=== PATIENT | female | born 1940 | race Caucasian/White ===

== ENCOUNTER → 2020-07-15 14:58 | Outpatient (CLI) | payer MEDICARE, SELFPAY ==
--- NOTE | ~2020-07-15 | XR_ITS ---
EXAMINATION: XR chest 2V EXAM DATE: 07/15/2020 15:27 INDICATION: Dyspnea on exertion . TECHNIQUE: Frontal and lateral projections of the chest obtained and reviewed. There is no prior cisco dy for comparison. FINDINGS: Moderate right-sided pleural effusion, small left pleural effusion, adjacent multisegmenta l right basilar atelectasis. There is cardiomegaly and pulmonary vascular congestion. Possible mild p ulmonary edema. Appearance consistent with CHF exacerbation. No pneumothorax. There is aortic arterio sclerosis. IMPRESSION: 1. Moderate right, small pleural effusions. 2. Congestive changes, suspicious for CHF exacerbation. Reviewed, dictated and finalized at location B. [facility]
== END ==
PROVIDERS: PCP Family Medicine Adolescent Medicine; Visit Provider Family Medicine Adolescent Medicine
DX: R06.09 Other forms of dyspnea (principal); J90 Pleural effusion, not elsewhere classified
CPT/HCPCS: 71046

== ENCOUNTER 2021-04-01 16:17 | Inpatient (IN) | payer MEDICARE, SELFPAY ==
[2021-04-01] VITALS (10 sets, daily range): BP systolic 154–188; BP diastolic 58–79; PULSE 21–66; RESP 16–20; TEMP 36–36.7; O2SAT 66–100
--- NOTE | ~2021-04-01 | XR_ITS ---
EXAMINATION: XR chest 2V DATE: 04/01/2021 22:11 INDICATION: Pulmonary edema TECHNIQUE: frontal and lateral views of the chest were obtained. COMPARISON: Chest radiograph dated 07/15/2020 FINDINGS: Subtle increased interstitial pattern in the lower lung zones and peribronchial cuffing consistent wi th mild pulmonary edema. Small right pleural effusion. No pneumothorax. Cardiomegaly. Moderate thorac olumbar spondylosis. IMPRESSION: 1. Mild pulmonary edema and small right pleural effusion. 2. Cardiomegaly. Reviewed, dictated and finalized at location A.
--- NOTE | ~2021-04-01 | NM_ITS ---
EXAMINATION: NM renal flow and function DATE: 04/03/2021 15:26 INDICATION: Acute kidney injury. TECHNIQUE: 7.2 mCi Tc-99m MAG3 was administered IV. The patient was scanned in the supine position. A posterior abdominal radionuclide angiogram was obtained. A subsequent time course of static images of the kidneys, ureters, and bladder was obtained. COMPARISON: Ultrasound kidneys 04/02/2021 FINDINGS: The posterior abdominal radionuclide angiogram and sequential static images show normal siz e, position, and morphology of the kidneys. Peak renal parenchymal uptake was >5 min in right kidney and >5 min in left kidney (normal peak 3-5 minutes). The relative early renal uptake was 53% on the right and 47% on the left (<40% is abnormal). No abnormalities of the ureters or bladder are seen. T1/2 for clearance of activity from the right kidney and proximal collecting system was >>20 minutes. T1/2 for clearance of activity from the left kidney and proximal collecting system was >>20 minutes. IMPRESSION: 1. Symmetric kidney function. 2. Delayed renal contrast uptake and delayed renal contrast clearance, consistent with decreased lanette al function. Reviewed, dictated and finalized at location A. IMPRESSION: 1. Symmetric kidney function. 2. Delayed renal contrast uptake and delayed renal contrast clearance, consist ent with decreased renal function.
--- NOTE | ~2021-04-01 | XR_ITS ---
EXAMINATION: XR abdomen/kub 1V INDICATION: Vomiting TECHNIQUE: Supine views of the abdomen were obtained on 2 radiographs. COMPARISON: None FINDINGS: The bowel gas pattern is normal. There are no dilated loops of bowel. Calcified atheroscler osis is noted. IMPRESSION: 1. No radiographic correlate for the patient's symptoms. Reviewed, dictated and finalized at location B.
--- NOTE | ~2021-04-01 | US_ITS ---
EXAMINATION: US biopsy renal DATE: 04/11/2021 14:53 INDICATION: Renal failure TECHNIQUE: The procedure including the risks, benefits, and alternatives was discussed with the patie nt. Risks discussed included bleeding and infection. The patient understood the risks and agreed to p roceed. A timeout was performed to verify the patient's name, date of , and procedure to be p erformed. The skin overlying the left kidney was prepped and draped in usual sterile fashion. Anest hetic was administered with 1% lidocaine subcutaneously. An 18 gauge core biopsy needle was then use d to obtain 7 core biopsy specimens under continuous sonographic guidance. The entry site was cleaned and dressed. There were no immediate complications. FINDINGS: Ultrasound images demonstrate the needle in the kidney. IMPRESSION: 1. Ultrasound-guided random left kidney core needle biopsy. Reviewed, dictated and finalized at location A.
--- NOTE | ~2021-04-01 | US_ITS ---
EXAMINATION: US renal BI DATE: 04/02/2021 08:44 INDICATION: Acute kidney injury. TECHNIQUE: Multiple ultrasound grayscale images of the kidneys were obtained. COMPARISON: None. FINDINGS: The right kidney measures 12.3 x 5.7 x 4.4 cm. The left kidney measures 12.0 x 5.1 x 5.6 cm. The kidn eys demonstrate normal parenchymal echogenicity. There is no hydronephrosis. The bladder is normal. IMPRESSION: 1. Normal kidneys. No hydronephrosis. Reviewed, dictated and finalized at location A.
--- NOTE | ~2021-04-01 | XR_ITS ---
EXAMINATION: XR chest 1V portable INDICATION: Shortness of breath TECHNIQUE: Portable AP chest at 0552 hours COMPARISON: 04/01/2021 FINDINGS: Cardiomegaly is noted. A mild diffuse interstitial pattern is present which has increased. There are small pleural effusions. No pneumothorax is identified. More focal airspace opacities are s een in the lung bases. IMPRESSION: 1. Cardiomegaly with mildly worsened pulmonary edema. 2. Small pleural effusions. 3. Bibasilar airspace opacities, consistent with atelectasis versus pneumonia. Reviewed, dictated and finalized at location A.
[2021-04-01 16:39] LABS: Basophils Percent Auto 0.2 % (0.2-1.2); Eosinophils Absolute Auto 0.1 K/mm3 (0-0.3); Eosinophils Percent Auto 0.8 % (0-4.4); Hematocrit 28.6 % (37.0-47.0); Hemoglobin 8.9 g/dL (12.0-15.0); Immature Granulocyte Absolute 0.02 K/mm3 (0.00-0.031); Immature Granulocyte Percent A 0.3 % (0-0.5); Lymphocytes Absolute Auto 1.37 K/mm3 (0.9-3.2); Lymphocytes Percent Auto 21.2 % (18.3-44.2); Mean Corpuscular HGB Conc 31.1 g/dl (32-36); Mean Corpuscular Volume 99.7 fl (80-100); Mean Platelet Volume 9.7 fl (7.4-10.4); Monocytes Absolute Auto 0.5 K/mm3 (0.1-0.6); Monocytes Percent Auto 7.9 % (2.6-8.5); Neutrophils Absolute Auto 4.5 K/mm3 (1.3-6.7); Neutrophils Percent Auto 69.6 % (45.5-73.1); Platelet Count Result 225 k/mm3 (150-375); Red Blood Count 2.87 M/mm3 (4.2-5.4); Red Cell Distribution Width 12.6 % (11.5-14.5); White Blood Count 6.5 K/mm3 (4.5-10.0)
[2021-04-01 16:48] LABS: Alanine Aminotransferase 16 U/L (4-35); Albumin Level 4.1 g/dL (3.5-5.1); Alkaline Phosphatase 70 U/L (38-126); Anion Gap 9 mmol/L (8-16); Aspartate Amino Transferase 23 U/L (14-36); Bilirubin,Total 0.5 mg/dL (0.2-1.3); Blood Urea Nitrogen 55 mg/dL (7-17); Carbon Dioxide 24 mmol/L (22-30); Chloride 108 mmol/L (98-107); Estimated CRCL calculation 13 ml/min; Estimated Glomerular Filt Rate 11; Glucose 125 mg/dL (65-110); Potassium 4.9 mmol/L (3.4-5.0); Sodium 141 mmol/L (137-145)
--- NOTE | 2021-04-01 20:50 | PC.NURSE ---
patient did not want to get in the bed and changed until she finds out what she is doing here. sent by dr carranza.
--- NOTE | 2021-04-01 22:00 | ED.RECABL ---
HPI - Recheck/Abnormal Lab/Rx General Chief Complaint: Recheck/Abnormal Lab/Rx Stated Complaint: NEEDS TESTING Time Seen by Provider: 04/01/21 21:01 Source: patient, family and RN notes reviewed Mode of arrival: wheelchair Limitations: no limitations History of Present Illness HPI narrative: This is an 80 year old female with history of hypertension, arthritis, CHF who presents for evaluation of abnormal labs. Patient was evaluated at her PCP office last week for a routine evaluation so she had outpatient labs performed. Patient was found to have increased Creatinine and decreased GFR so she was told to decrease Lasix from 80 mg to 40 mg yesterday. She was also told to stop taking meloxicam. Dr. Rico spoke to DR. Sotelo about patient and he recommended that patient be evaluated in ER today. Dr. Rico reports patient's GFR was 58 one year ago and it is 11 today. Patient denies any complaints. She denies chest pain, shortness of breathing, weakness, nausea, vomiting , difficulty urinating. She denies melena or blood loss. Related Data Home Medications Medication Instructions Recorded Confirmed aspirin [Aspirin Child] 81 mg PO DAILY 04/02/21 04/02/21 atenolol 50 mg PO DAILY 04/02/21 04/02/21 atorvastatin 40 mg PO DAILY 04/02/21 04/02/21 benazepril 40 mg PO HS 04/02/21 04/02/21 furosemide 40 mg PO DAILY 04/02/21 04/02/21 glimepiride 1 mg PO DAILY 04/02/21 04/02/21 latanoprost 1 drp EACH EYE HS 04/02/21 04/02/21 metformin 500 mg PO BID 04/02/21 04/02/21 timolol maleate 1 drp EACH EYE BID 04/02/21 04/02/21 Allergies Allergy/AdvReac Type Severity Reaction Status Date / Time ibuprofen Allergy Unknown Swelling Verified 04/02/21 04:26 of Lip/Tongue/Throat Review of Systems Review of Systems: All systems reviewed & are unremarkable except as noted in HPI and below PMFSH Past Medical History Medical History (Updated 04/02/21 @ 07:19 by Vera Isaac MD) Anemia CHF (congestive heart failure) Surgical History Surgical History (Updated 04/02/21 @ 07:23 by Vera Isaac MD) Hx of appendectomy Family History Family History (Updated 04/02/21 @ 04:17 by Seelne Connolly RN) Father Acute myocardial infarction Mother Ovarian cancer Social History Social History Smoking status: Never smoker Alcohol intake: never Substance use: never Substance use type: does not use Spiritual care concerns: No Exam Const: General: no acute distress, alert and ill appearing Orientation/consciousness: patient oriented x3 Eyes: EOM: EOMs intact bilaterally Resp: Effort & Inspection: normal respiratory effort and no retractions Auscultation: clear to auscultation bilaterally Cardio: Rhythm: regular rhythm Heart sounds: Murmur heart sound present GI: GI Palp: Yes Soft to palpation, No Tenderness to palpation present (GI) and No Guarding due to palpation present (GI) Auscultation: normal bowel sounds Neuro: General: patient oriented x3 and moves all extremities Extrem: Other: bilateral legs wrapped for edema Psych: Mental Status: mental status grossly normal Affect: normal affect Course Consultations Consultation #1: I spoke with Dr. Morales who states ok to continue diuretics. Order renal US. he will see tomorrow to given more recommendations. Date: 04/02/21 Time: 01:00 Vital Signs Vital signs: Vital Signs Temperature 96.8 F L 04/01/21 16:18 Pulse Rate 63 04/01/21 16:18 Respiratory Rate 16 04/01/21 16:18 Blood Pressure 181/68 H 04/01/21 16:18 Pulse Oximetry 99 04/01/21 16:18 Temperature 97.6 F 04/02/21 06:00 Pulse Rate 64 04/02/21 06:00 Respiratory Rate 20 04/02/21 06:00 Blood Pressure 184/68 H 04/02/21 06:00 Pulse Oximetry 97 04/02/21 06:00 MDM - Recheck/Abnormal Lab/Rx Medical Records Attestation: I reviewed the patient's medical records. Lab Data Attestation: I reviewed the patient's lab results. Result diagrams:
--- NOTE | 2021-04-01 22:01 | PC.NURSE ---
Called lab to add on additional labs
[2021-04-01 23:19] LABS: Folic Acid 7.4 ng/mL (2.76->20)
[2021-04-01 23:55] LABS: Iron 68 ug/dL (37-170)
[2021-04-02] VITALS (7 sets, daily range): BP systolic 133–184; BP diastolic 68–79; PULSE 54–64; RESP 16–20; TEMP 36.4–36.7; O2SAT 96–99; BMI 43.7
--- NOTE | 2021-04-02 | ECHO_ITS ---
Patient Info Name: Velma Goins Age: 80 years : 1940 Gender: Female Ht: 64 in Wt: 254 lbs BSA: 2.34 m2 HR: 78 bpm BP: 171 / 67 mmHg Heart Rhythm: Sinus Rhythm Technical Quality: Poor Exam Date: 04/02/2021 1:02 PM Exam Location: [facility] Pulmonary Exam Room: [facility] Patient Status: Inpatient Admit Date: 04/02/2021 Staff Ordering Physician: [facility] Clinical Nurse Specialist: Justa Walden RDCS Attending Provider: Roxann Redd DO Referring Physician: José NGUYEN; Exam Type: CA echo dop bubble study w con Study Info Indications - fluid overload Complete two-dimentional, color flow and Doppler transthoracic echocardiogram is performed with agitated saline and with contrast to opacify the left ventricle and to improve the delineation of the left ventricle endocardial borders. Contrast/Agitated Saline Contrast/Ag. Saline: Definity Amount: 1.00 ml Administered By: Taylor Melendrez RN Existing IV Access: Yes IV Access Condition: patent with no signs of infiltration Summary 1. Left ventricular chamber dimension is mildly enlarged. 2. Left ventricular systolic function is normal, estimated at 55-60%. 3. There is moderately increased left ventricular wall thickness. 4. The left ventricular diastolic function is grade II diastolic dysfunction. 5. Left atrial chamber dimension is moderately enlarged. 6. There is severe aortic valve stenosis with a peak velocity of 438 cm/s, mean gradient of 55 mmHg, and aortic valve area of 0.7 cm2. 7. There is mild tricuspid valve regurgitation. 8. Severe pulmonary hypertension, estimated pulmonary arterial systolic pressure is 69 mmHg. 9. There is a small pericardial effusion with fibrinous material within the pericardial space. 10. There is mild mitral valve regurgitation. 11. The mitral valve annulus is severely calcified. 12. Calcification of the submitral apparatus. Left Ventricle Left ventricular chamber dimension is mildly enlarged. Left ventricular systolic function is normal, estimated at 55-60%. There is moderately increased left ventricular wall thickness. The left ventricular diastolic function is grade II diastolic dysfunction. Right Ventricle Right ventricular chamber dimension is normal. Right ventricular systolic function is normal. Left Atria Left atrial chamber dimension is moderately enlarged. Right Atria Right atrial chamber dimension is mildly enlarged. Aortic Valve The aortic valve is not well visualized. There is severe aortic valve stenosis with a peak velocity of 438 cm/s, mean gradient of 55 mmHg, and aortic valve area of 0.7 cm2. There is mild aortic valve regurgitation. There is severe aortic valve calcification. Pulmonic Valve The pulmonic valve is not well visualized. Mitral Valve The mitral valve has thickened leaflets. There is mild mitral valve regurgitation. The mitral valve annulus is severely calcified. Calcification of the submitral apparatus. Tricuspid Valve The tricuspid valve leaflets are normal. There is mild tricuspid valve regurgitation. Severe pulmonary hypertension, estimated pulmonary arterial systolic pressure is 69 mmHg. Pericardium/Pleural The pericardium appears normal. There is a small pericardial effusion with fibrinous material within the pericardial space. Inferior Vena Cava Normal inferior vena cava with >50% collapse upon inspiration consistent with normal right atrial pressu
[2021-04-02 00:04] LABS: Percent Iron Saturation 29 % (20-50)
[2021-04-02 00:43] LABS: Add Urine Microscopic? YES; Appearance Urine Clear (Clear); Bacteria Urine 2+ /hpf; Bilirubin Urine Negative (Negative); Color Urine Yellow (Yellow); Glucose Urine UA Negative (Negative); Ketones Urine Negative (Negative); Leukocyte Esterase Ur 1+ LEU/UL (Negative); Nitrate Urine Negative (Negative); Protein Urine 1+ mg/dL (Negative); RBC Urine 0-2 /hpf (0-2); Specific Grav Ur 1.014 (1.001-1.035); Squamous Epithelial Cell Urine Rare /hpf (Few); Urobilinogen Urine Negative mg/dL (<2.0); WBC Urine 16-20 /hpf
--- NOTE | 2021-04-02 01:03 | PC.NURSE ---
Addendum entered by Minnie Hinojosa, Honey 04/02/21 01:03: Janie* UR K Janie Ur Creat at 0103 04/02/2021 - spoke to Daisy Original Note: called lab to add on BNP and Ur Prot Ur NA RAn
[2021-04-02 01:11] LABS: Blood Urine Negative (Negative)
[2021-04-02 01:25] LABS: NT Pro B Type Natriuretic Pept 7660 pg/mL (5-100)
--- NOTE | 2021-04-02 01:45 | PC.NURSE ---
Pt aware of need for another urine sample. Pt refusing straight catheter at this time. Urine cup at bedside.
--- NOTE | 2021-04-02 03:41 | PC.NURSE ---
daughter upset that she can not go upstairs to the room with the patient. daughter states her only concern is her mother. daughter states that her mother has bad eyesight and is worried about her pressing the wrong button and not getting anyone to help her and if she sits in her urine she will be really mad . daughter states she will be calling the doctor tomorrow and having her mother pulled out of this hospital . daughter apologized and stated that she was not taking it out on us, but her only concerns is her mother getting good care. I let the daughter know that I would relay the message to the floor nurse, and that they would make sure the patient was familiar with the room and buttons to press for help.
--- NOTE | 2021-04-02 03:58 | ADMGEN ---
This patient, Velma Goins, was admitted to 2 Medical Room 250-01. Patient/family oriented to hospital policies and general routines including ID bracelet, bed and alarms, visiting hours, pain management, procedures, bathroom and other care routines, personal items, smoking policy, room service/diet, and visiting hours. Information on how to activate the Rapid Response Team has been discussed. Patient/Family are encouraged to report perceived risks to care and to ask questions if they do not understand what they are told or what they should do.
[2021-04-02 06:58] LABS: Creatinine Urine 77.4 mg/dL
[2021-04-02 07:08] LABS: Potassium Urine Random 33.6 meq/L; Sodium Urine Random 62 meq/L
[2021-04-02 08:20] LABS: Glucose Point of Care 117 mg/dl (65-105)
[2021-04-02] MEDS: atenoloL 50 MG TABLET PO (11:57)
--- NOTE | 2021-04-02 12:00 | PM.IMHP ---
H&P: HPI History of Present Illness Date/Time: Date of Service: 04/02/21 11:18 Chief Complaint: Abnormal labs Narrative: Patient is an 80 year old female with a past medical history of HTN, CHF, and HLD that presented to the ED for evaluation of abnormal labs. According to the patient's daughter the patient went to see Dr. Rico on Wednesday for her yearly physical and was told that everything was looking great. On Wednesday she was called and was told to make some medications changes. Which consisted of cutting the metformin back to 500mg BID and the lasix 40mg BID to only once daily. She was then called again on Wednesday to report to the ED. It was also told that the patient should see Dr. Sotelo as well, as her kidney function is greatly reduced. According to our labs her renal function is not good, and her BUN and Cr are elevated. The patient did say that nothing has really changed. It was mentioned that last June her medications were changed and that the patient started to lose weight. The patient had also changed her diet at home. Her daughter stated that she is there cooking for her mother and father. She is also regulating their intake with food. Her daughter also stated that she has water all over the house where her mother goes to keep it accessible to her at all times. The patient also stated that she has noticed that she is not urinating as much as she used to. She did say that she does feel that she is empting when she does go. She also stated that she does not feel that anything has changed and that she does not feel any different at this time. She did say that she had a BM the day before yesterday. She denied urinary dysfunction, retention, or any other symptoms. Patient denies chest pain, shortness of breath, weakness, fatigue, abdominal pain, nausea, vomiting, headache, syncope, falls, numbness and tingling in the fingers or toes, urinary dysfunction, cough, abnormal breathing. Review of Systems Review of Systems: All systems reviewed & are unremarkable except as noted in HPI and below PMFSH Past Medical History Medical History (Updated 04/02/21 @ 12:26 by BRYAN RandleN-C) Anemia Arthritis CHF (congestive heart failure) Diabetes Glaucoma HLD (hyperlipidemia) HTN (hypertension) Surgical History Surgical History (Updated 04/02/21 @ 07:23 by Vera Isaac MD) Hx of appendectomy Family History Family History (Updated 04/02/21 @ 12:30 by ASAD Randle) Father Acute myocardial infarction Cerebrovascular accident Heart disease Hypertension Diabetes mellitus Mother Ovarian cancer Heart disease Hypertension Sibling Hypertension Heart disease Social History Social History Smoking status: Never smoker Alcohol intake: never Substance use: never Substance use type: does not use Spiritual care concerns: No Meds Home Medications and Allergies Home Medications Medication Instructions Recorded Confirmed Type ascorbic acid (vitamin C) 1,000 mg PO QPM 04/02/21 04/02/21 History aspirin [Aspirin Child] 81 mg PO QPM 04/02/21 04/02/21 History atenolol 50 mg PO DAILY 04/02/21 04/02/21 History atorvastatin 40 mg PO QPM 04/02/21 04/02/21 History benazepril 40 mg PO QPM 04/02/21 04/02/21 History cholecalciferol (vitamin D3) 125 mcg PO DAILY 04/02/21 04/02/21 History [Vitamin D3] furosemide 40 mg PO DAILY 04/02/21 04/02/21 History glimepiride 1 mg PO DAILY 04/02/21 04/02/21 History glucosamine-chondroitin [Osteo 2 tablet PO DAILY 04/02/21 04/02/21 History Bi-Flex] latanoprost 1 drp EACH EYE HS 04/02/21 04/02/21 History meloxicam 7.5 mg PO DAILY 04/02/21 04/02/21 History metformin 500 mg PO BID 04/02/21 04/02/21 History metolazone 2.5 mg PO DAILY 04/02/21 04/02/21 History oxybutynin chloride 15 mg PO QPM 04/02/21 04/02/21 History sennosides [Senokot] 8.6 mg PO BID PRN MDD constipation 04/02/21 04/02/21 History timolol maleate 1 drp EACH EYE Q12H 0
[2021-04-02] MEDS: TIMOLOL MALEATE 0.5% OP SOLN 5 ML BOTTLE 1 DROP EACH EYE ×2 (12:01→21:52)
[2021-04-02 13:12] LABS: Hematocrit 28.9 % (37.0-47.0); Hemoglobin 9.4 g/dL (12.0-15.0); Mean Corpuscular HGB Conc 32.5 g/dl (32-36); Mean Corpuscular Hemoglobin 31.3 pg (26-34); Mean Corpuscular Volume 96.3 fl (80-100); Mean Platelet Volume 9.8 fl (7.4-10.4); Platelet Count Result 233 k/mm3 (150-375); Red Cell Distribution Width 12.5 % (11.5-14.5); White Blood Count 6.3 K/mm3 (4.5-10.0)
[2021-04-02 13:17] LABS: Alanine Aminotransferase 16 U/L (4-35); Albumin Level 4.1 g/dL (3.5-5.1); Alkaline Phosphatase 75 U/L (38-126); Anion Gap 9 mmol/L (8-16); Aspartate Amino Transferase 23 U/L (14-36); Bilirubin,Total 0.5 mg/dL (0.2-1.3); Blood Urea Nitrogen 52 mg/dL (7-17); Calcium 9.7 mg/dL (8.4-10.2); Carbon Dioxide 24 mmol/L (22-30); Chloride 103 mmol/L (98-107); Estimated CRCL calculation 15 ml/min; Estimated Glomerular Filt Rate 13; Glucose 156 mg/dL (65-110); Magnesium 1.6 mg/dL (1.6-2.3); Phosphorus 3.8 mg/dL (2.5-4.5); Potassium 4.5 mmol/L (3.4-5.0); Sodium 136 mmol/L (137-145)
[2021-04-02 13:38] LABS: Glucose Point of Care 153 mg/dl (65-105)
[2021-04-02] MEDS: PERFLUTREN LIPID MICROSPHERES 1.5 ML VIAL DILUTED TO 10 ML TOTAL VOLUME IV PUSH (13:43)
[2021-04-02 14:29] LABS: Total Protein Urine Random 39 mg/dL
--- NOTE | 2021-04-02 16:25 | PM.CNNEP ---
Assessment and Plan Assessment and plan (1) Acute kidney injury: Code(s): N17.9 - Acute kidney failure, unspecified Status: Acute Assessment and Plan: reported near normal kidney function (GFR ~ 58cc/min) about a year ago etiology of significant decline if creatinine not clear renal ultrasound without obstruction urine electrolytes non-prerenal (but she was on diuretic therapy) Echo results noted -- aortic stenosis +/- pulmonary HTN playing a role? UA suggestive of a possible UTI... given the significant decline in renal function with out a clear cause, will check serologies to r/o any type of autoimmune disorders, vasculitis or infiltrative disease may need to consider a renal biopsy for a definitive diagnosis if renal function fails to improve with conservative therapy check renal scan to assess blood flow and function follow repeat labs and UOP (2) CHF (congestive heart failure): Code(s): I50.9 - Heart failure, unspecified Status: Acute Assessment and Plan: as evidence by imaging and exam on presentation on diuretics as an outpatient Echo results noted (3) HTN (hypertension): Code(s): I10 - Essential (primary) hypertension Status: Chronic Assessment and Plan: on the higher side follow trend of hemodynamics agree with using hydralazine PRN (4) Anemia: Code(s): D64.9 - Anemia, unspecified Status: Acute Assessment and Plan: related to kidney dysfunction? follow trend of H/H (5) Diabetes: Code(s): E11.9 - Type 2 diabetes mellitus without complications Status: Chronic Assessment and Plan: follow accuhecks glycemic control Long and extensive (> 20 minutes) discussion with patient regarding her renal dysfunction and the unclear etiology at this time, the planned work-up/evaluation, and possible need for renal biopsy if kidney function continues to decline or fails improve despite conservative therapy. History of Present Illness Reason for Consult Consult date: 04/02/21 Reason for consult: acute renal failure Chief Complaint Chief complaint: Acute kidney injury, anemia History of Present Illness Narrative: The patient is a 80 year old female with a past medical history as outlined below who presented to the [facility] ER with abnormal labs. The patient apparently went to see her primary care physician earlier this week for her yearly physical. She had blood work done at that time and was subsequently discovered to have what appeared to be acute kidney injury/acute renal failure. Her baseline kidney function runs around 58 cc/minute by labs done about a year ago but her repeat labs done by her primary care physician showed a marked decline in her kidney function. She was referred to Dr. Sotelo for further evaluation of this issue but given the significant decline in her renal function it was recommended she go to the ER for further evaluation and therapy. Workup and evaluation emergency room did not demonstrate any significant findings as the patient was hemodynamically stable and did not appear to be in acute distress. She gave no history with regard to decreased urine output urinary retention, fevers, chills, nausea, vomiting, abdominal pain, fatigue, shortness of breath, syncope, recurrent falls, respiratory distress, or diarrhea. Repeat labs did show a marked decline in her kidney function as evidence by her labs at her primary care physician but no critical electrolyte abnormalities. She denies any issues or problems with regard to decreased oral intake or decreased fluid intake as well. Further testing in the emergency room did demonstrate the patient have some evidence of mild fluid retention/volume overload both by her chest x-ray as well as her physical exam as she had significant lower extremity swelling /edema. Given these constellation of symptoms, she was admitted the hospital for [facility]
--- NOTE | 2021-04-02 16:25 | P.CONNP_ITS ---
Assessment and Plan Assessment and plan (1) Acute kidney injury: Code(s): N17.9 - Acute kidney failure, unspecified Status: Acute Assessment and Plan: * reported near normal kidney function (GFR ~ 58cc/min) about a year ago * etiology of significant decline if creatinine not clear * renal ultrasound without obstruction * urine electrolytes non-prerenal (but she was on diuretic therapy) * Echo results noted -- aortic stenosis +/- pulmonary HTN playing a role? * UA suggestive of a possible UTI... * given the significant decline in renal function with out a clear cause, will check serologies to r/o any type of autoimmune disorders, vasculitis or infiltrative disease * may need to consider a renal biopsy for a definitive diagnosis if renal function fails to improve with conservative therapy * check renal scan to assess blood flow and function * follow repeat labs and UOP (2) CHF (congestive heart failure): Code(s): I50.9 - Heart failure, unspecified Status: Acute Assessment and Plan: * as evidence by imaging and exam on presentation * on diuretics as an outpatient * Echo results noted (3) HTN (hypertension): Code(s): I10 - Essential (primary) hypertension Status: Chronic Assessment and Plan: * on the higher side * follow trend of hemodynamics * agree with using hydralazine PRN (4) Anemia: Code(s): D64.9 - Anemia, unspecified Status: Acute Assessment and Plan: * related to kidney dysfunction? * follow trend of H/H (5) Diabetes: Code(s): E11.9 - Type 2 diabetes mellitus without complications Status: Chronic Assessment and Plan: * follow accuhecks * glycemic control Long and extensive (> 20 minutes) discussion with patient regarding her renal dysfunction and the unclear etiology at this time, the planned work- up/evaluation, and possible need for renal biopsy if kidney function continues to decline or fails improve despite conservative therapy. History of Present Illness Reason for Consult Consult date: 04/02/21 Reason for consult: acute renal failure Chief Complaint Chief complaint: Acute kidney injury, anemia History of Present Illness Narrative: The patient is a 80 year old female with a past medical history as outlined below who presented to the [facility] ER with abnormal labs. The patient apparently went to see her primary care physician earlier this week for her yearly physical. She had blood work done at that time and was subsequently discovered to have what appeared to be acute kidney injury/acute renal failure. Her baseline kidney function runs around 58 cc/minute by labs done about a year ago but her repeat labs done by her primary care physician s howed a marked decline in her kidney function. She was referred to Dr. Sotelo for further evaluation of this issue but given the significant decline in her renal function it was recommended she go to the ER for further evaluation and therapy. Workup and evaluation emergency room did not demonstrate any significant findings as the patient was hemodynamically stable and did not appear to be in acute distress. She gave no history with regard to decreased urine output urinary retention, fevers, chills, nausea, vomiting, abdominal pain, fatigue, shortness of breath, syncope, recurrent falls, respiratory distress, or diarrhea. Repeat labs did show a marked decline in her kidney function as ev idence by her labs at her primary care physician but no critical electrolyte abnormalities. She denies any issues or problems with regard to de
[2021-04-02] MEDS: ASPIRIN 81 MG CHEWABLE TABLET PO (17:31)
[2021-04-02] MEDS: ONDANSETRON INJ 4 MG/2 ML VIAL IV PUSH (20:38)
[2021-04-02] MEDS: LATANOPROST 0.005% OP SOLN 2.5 ML BTL 1 DROP EACH EYE (21:52)
[2021-04-03 03:13] LABS: Urea Random Urine 553 MG/DL
[2021-04-03 03:14] LABS: Creatinine Urine 87.4 mg/dL; Total Protein Urine Random 49 mg/dL; Ur Ttl Prot Creatinine Ratio 0.56 mg/mg (0-0.20)
[2021-04-03 03:32] LABS: Eosinophil Urine None Seen % (None Seen)
[2021-04-03 05:58] LABS: Basophils Percent Auto 0.1 % (0.2-1.2); Eosinophils Absolute Auto 0.1 K/mm3 (0-0.3); Eosinophils Percent Auto 0.7 % (0-4.4); Hematocrit 26.2 % (37.0-47.0); Hemoglobin 8.4 g/dL (12.0-15.0); Immature Granulocyte Absolute 0.02 K/mm3 (0.00-0.031); Immature Granulocyte Percent A 0.3 % (0-0.5); Immature Platelet Fraction Pct 2.9 % (0.9-11.2); Lymphocytes Absolute Auto 1.36 K/mm3 (0.9-3.2); Lymphocytes Percent Auto 18.6 % (18.3-44.2); Mean Corpuscular HGB Conc 32.1 g/dl (32-36); Mean Corpuscular Hemoglobin 31.9 pg (26-34); Mean Corpuscular Volume 99.6 fl (80-100); Mean Platelet Volume 10.4 fl (7.4-10.4); Monocytes Absolute Auto 0.7 K/mm3 (0.1-0.6); Neutrophils Absolute Auto 5.2 K/mm3 (1.3-6.7); Neutrophils Percent Auto 71.3 % (45.5-73.1); Platelet Count Result 216 k/mm3 (150-375); Red Blood Count 2.63 M/mm3 (4.2-5.4); Red Cell Distribution Width 12.7 % (11.5-14.5); White Blood Count 7.3 K/mm3 (4.5-10.0)
[2021-04-03 06:00] VITALS: BP 160/58; PULSE 57; RESP 18; TEMP 36.1; O2SAT 96
[2021-04-03 06:05] LABS: Albumin Level 3.4 g/dL (3.5-5.1); Anion Gap 7 mmol/L (8-16); Blood Urea Nitrogen 53 mg/dL (7-17); Calcium 9.5 mg/dL (8.4-10.2); Carbon Dioxide 25 mmol/L (22-30); Chloride 106 mmol/L (98-107); Estimated CRCL calculation 16 ml/min; Estimated Glomerular Filt Rate 14; Glucose 110 mg/dL (65-110); Phosphorus 4.1 mg/dL (2.5-4.5); Potassium 4.4 mmol/L (3.4-5.0); Sodium 138 mmol/L (137-145)
[2021-04-03 06:11] LABS: Complement C3 94 mg/dL (88-165)
[2021-04-03 07:23] LABS: Hepatitis B Surface Antigen Negative (Negative)
[2021-04-03 07:29] LABS: HAV RESULT Negative (Negative); Hepatitis B Core IgM Result Negative (Negative)
[2021-04-03 07:41] LABS: Hepatitis B Surface Anti Res Negative; Hepatitis C Virus Antibody Negative (Negative)
[2021-04-03 08:17] VITALS: PULSE 54
[2021-04-03] MEDS: CHOLECALCIFEROL 1,000 UNITS TABLET 5000 UNITS PO (08:17)
[2021-04-03] MEDS: atenoloL 50 MG TABLET PO (08:17)
[2021-04-03] MEDS: TIMOLOL MALEATE 0.5% OP SOLN 5 ML BOTTLE 1 DROP EACH EYE ×2 (08:18→20:51)
[2021-04-03] MEDS: ENOXAPARIN 30 MG/0.3 ML SYRINGE SUB-Q (09:37)
--- NOTE | 2021-04-03 10:22 | P.PNIM_ITS ---
Progress Note: A&P Assessment and Plan (1) Acute kidney injury: Code(s): N17.9 - Acute kidney failure, unspecified Status: Acute Assessment and Plan: * BUN and creatinine elevated at 55/3.80 upon admission * trend labs * labs in a.m. 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 daily because of CANDICE * echo EF of 55-60 severe aortic stenosis with pulmonary pressure of 69 * Edema seems to be resolving and has a 1+ nonpitting * Weston smith ordered * trend labs * labs in a.m. * low-sodium diet * nephrology consulted thank you for your recommendations (3) HTN (hypertension): Code(s): I10 - Essential (primary) hypertension Status: Chronic Assessment and Plan: * Current blood pressure 160/58 * Continue home atenolol 50mg PO daily * will add hydralazine 10mg PRN with parameters * Trend blood pressure * adjust medications as needed (4) Nausea & vomiting: Code(s): R11.2 - Nausea with vomiting, unspecified Status: Acute Assessment and Plan: * Three episodes of vomiting reported yesterday * Sometimes after eating * Zofran 4 mg IV push q.6 p.r.n. * KUB ordered * Will take patient to clear liquids (5) Diabetes: Code(s): E11.9 - Type 2 diabetes mellitus without complications Status: Chronic Assessment and Plan: * Glucose is 110 * Hold home glimepiride and metformin * initiate sliding scale * hypoglycemia protocol * trend glucose * labs in the am * adjust medications as needed (6) Arthritis: Code(s): M19.90 - Unspecified osteoarthritis, unspecified site Status: Acute Assessment and Plan: * Hold home meloxicam for now * Resume when renal function is better if able (7) Glaucoma: Code(s): H40.9 - Unspecified glaucoma Status: Acute Assessment and Plan: * Continue timolol 1gtt BID, latanoprost 1gtt BID per eye (8) HLD (hyperlipidemia): Code(s): E78.5 - Hyperlipidemia, unspecified Status: Acute Assessment and Plan: * Hold home atorvastatin for now * Continue when able (9) Anemia: Code(s): D64.9 - Anemia, unspecified Status: Acute Assessment and Plan: * H/H stable at 8.4/26.2 * MCV 99.7 * Trend H/H * Anemia labs: Iron 68, TIBC is 231, saturation 29, ferritin 115, B12 424, folate 7.4 * labs in a.m. * transfuse if below 7 Time Spent With Patient Time with patient: Greater than 35 minutes Subjective Date/time seen: 04/03/21 08:48 Interval history: Patient is an 80 year old female with a past medical history of HTN, CHF, and HLD that presented to the
--- NOTE | 2021-04-03 10:22 | PM.IMPN ---
Progress Note: A&P Assessment and Plan (1) Acute kidney injury: Code(s): N17.9 - Acute kidney failure, unspecified Status: Acute Assessment and Plan: BUN and creatinine elevated at 55/3.80 upon admission trend labs labs in a.m. 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 daily because of CANDICE echo EF of 55-60 severe aortic stenosis with pulmonary pressure of 69 Edema seems to be resolving and has a 1+ nonpitting Weston smith ordered trend labs labs in a.m. low-sodium diet nephrology consulted thank you for your recommendations (3) HTN (hypertension): Code(s): I10 - Essential (primary) hypertension Status: Chronic Assessment and Plan: Current blood pressure 160/58 Continue home atenolol 50mg PO daily will add hydralazine 10mg PRN with parameters Trend blood pressure adjust medications as needed (4) Nausea & vomiting: Code(s): R11.2 - Nausea with vomiting, unspecified Status: Acute Assessment and Plan: Three episodes of vomiting reported yesterday Sometimes after eating Zofran 4 mg IV push q.6 p.r.n. KUB ordered Will take patient to clear liquids (5) Diabetes: Code(s): E11.9 - Type 2 diabetes mellitus without complications Status: Chronic Assessment and Plan: Glucose is 110 Hold home glimepiride and metformin initiate sliding scale hypoglycemia protocol trend glucose labs in the am adjust medications as needed (6) Arthritis: Code(s): M19.90 - Unspecified osteoarthritis, unspecified site Status: Acute Assessment and Plan: Hold home meloxicam for now Resume when renal function is better if able (7) Glaucoma: Code(s): H40.9 - Unspecified glaucoma Status: Acute Assessment and Plan: Continue timolol 1gtt BID, latanoprost 1gtt BID per eye (8) HLD (hyperlipidemia): Code(s): E78.5 - Hyperlipidemia, unspecified Status: Acute Assessment and Plan: Hold home atorvastatin for now Continue when able (9) Anemia: Code(s): D64.9 - Anemia, unspecified Status: Acute Assessment and Plan: H/H stable at 8.4/26.2 MCV 99.7 Trend H/H Anemia labs: Iron 68, TIBC is 231, saturation 29, ferritin 115, B12 424, folate 7.4 labs in a.m. transfuse if below 7 Time Spent With Patient Time with patient: Greater than 35 minutes Subjective Date/time seen: 04/03/21 08:48 Interval history: Patient is an 80 year old female with a past medical history of HTN, CHF, and HLD that presented to the ED for evaluation of abnormal labs. Patient stated that she is doing better today. She denies chest pain, shortness of breath, or headache. She is concerned that she keeps vomiting after meals. She stated that she tried to eat her dinner, but shortly after she vomited it up. She also was wondering about her medications and why she was not getting them as she is used to. She also made note that she is concerned about her . She stated that she usually helps with his care as well. She denies abdominal pain, weakness, fatigue. Review of Systems Review of Systems: All systems reviewed & are unremarkable except as noted i
[2021-04-03 12:47] LABS: Glucose Point of Care 150 mg/dl (65-105)
--- NOTE | 2021-04-03 14:39 | P.PNNP_ITS ---
Progress Note: A&P Assessment and Plan (1) Acute kidney injury: Code(s): N17.9 - Acute kidney failure, unspecified Status: Acute Assessment and Plan: * reported near normal kidney function (GFR ~ 58cc/min) about a year ago * etiology not clear * renal ultrasound without obstruction * urine electrolytes non-prerenal (but she was on diuretic therapy) * Echo results noted -- aortic stenosis +/- pulmonary HTN playing a role? * UA suggestive of a possible UTI...follow-up on culture * serological evaluation underway * may need to consider a renal biopsy for a definitive diagnosis if renal function fails to improve with conservative therapy * renal scan noted -- symmetric blood flow * follow repeat labs and UOP (2) CHF (congestive heart failure): Code(s): I50.9 - Heart failure, unspecified Status: Acute Assessment and Plan: * as evidence by imaging and exam on presentation * on diuretics as an outpatient * Echo results noted (3) HTN (hypertension): Code(s): I10 - Essential (primary) hypertension Status: Chronic Assessment and Plan: * reasonable control at this time * follow trend of hemodynamics (4) Anemia: Code(s): D64.9 - Anemia, unspecified Status: Acute Assessment and Plan: * related to kidney dysfunction? * follow trend of H/H (5) Diabetes: Code(s): E11.9 - Type 2 diabetes mellitus without complications Status: Chronic Assessment and Plan: * follow accuhecks * glycemic control Will continue to follow. Subjective Date/time seen: 04/03/21 14:39 No apparent distress or issues to report at this time; reasonably urine output despite being off diuretic therapy; no other events overnight or earlier this AM Exam Narrative: General: WD/WN female in NAD Heart: normal S1 and S2; no rub Lungs: decreased at bases Abdomen: soft, nontender, nondistended, positive bowel sounds Extremities: no cyanosis or clubbing; 2 - 3+ edema Skin: warm and dry Objective Data Vital Signs Vital Signs: Vital Signs Temp Pulse Resp BP Pulse Ox 04/03/21 08:17 54 L 04/03/21 06:00 36.1 C L 57 L 18 160/58 H 96 04/02/21 22:00 36.4 C 54 L 18 152/71 H 96 Intake/Output Intake/Output: Intake & Output 03/31/21 04/01/21 04/02/21 04/03/21 23:59 23:59 23:59 23:59 Intake Total 487 350 Output Total 550 500 Balance -63 -150 Meds/Results Medications: Active Medications Generic Name Dose Route Start Last Admin Trade Name Freq PRN Reason Stop Dose Admin Aspirin 81 mg 04/02/21 18:00 04/02/21 17:31 Aspirin 81 Mg Chewable Tablet PO 81 mg QPM PAT Administration Atenolol 50 mg 04/02/21 11:10 04/03/21 08:17 Atenolol 50 Mg Tablet PO 50 mg DAILY PAT Administration Dextrose 12.5 gm 04/03/21 11:10 Dextrose 50% 25 Gm/50 Ml Syringe IV PUSH PRN PRN Hypoglycemia Protocol Enoxaparin Sodium 30 mg 04/03/21 09:00 04/03/21 09:37 Enoxaparin 30 Mg/0.3 Ml Syringe SUB-Q 30 mg DAILY PAT Administration Glucagon 1 mg 04/03/21 11:10 Glucagon For Inj 1 Mg Vial IM PRN PRN Hypoglycemia Protocol
--- NOTE | 2021-04-03 14:39 | PM.PNNEP ---
Progress Note: A&P Assessment and Plan (1) Acute kidney injury: Code(s): N17.9 - Acute kidney failure, unspecified Status: Acute Assessment and Plan: reported near normal kidney function (GFR ~ 58cc/min) about a year ago etiology not clear renal ultrasound without obstruction urine electrolytes non-prerenal (but she was on diuretic therapy) Echo results noted -- aortic stenosis +/- pulmonary HTN playing a role? UA suggestive of a possible UTI...follow-up on culture serological evaluation underway may need to consider a renal biopsy for a definitive diagnosis if renal function fails to improve with conservative therapy renal scan noted -- symmetric blood flow follow repeat labs and UOP (2) CHF (congestive heart failure): Code(s): I50.9 - Heart failure, unspecified Status: Acute Assessment and Plan: as evidence by imaging and exam on presentation on diuretics as an outpatient Echo results noted (3) HTN (hypertension): Code(s): I10 - Essential (primary) hypertension Status: Chronic Assessment and Plan: reasonable control at this time follow trend of hemodynamics (4) Anemia: Code(s): D64.9 - Anemia, unspecified Status: Acute Assessment and Plan: related to kidney dysfunction? follow trend of H/H (5) Diabetes: Code(s): E11.9 - Type 2 diabetes mellitus without complications Status: Chronic Assessment and Plan: follow accuhecks glycemic control Will continue to follow. Subjective Date/time seen: 04/03/21 14:39 No apparent distress or issues to report at this time; reasonably urine output despite being off diuretic therapy; no other events overnight or earlier this AM Exam Narrative: General: WD/WN female in NAD Heart: normal S1 and S2; no rub Lungs: decreased at bases Abdomen: soft, nontender, nondistended, positive bowel sounds Extremities: no cyanosis or clubbing; 2 - 3+ edema Skin: warm and dry Objective Data Vital Signs Vital Signs: Vital Signs Temp Pulse Resp BP Pulse Ox 04/03/21 08:17 54 L 04/03/21 06:00 36.1 C L 57 L 18 160/58 H 96 04/02/21 22:00 36.4 C 54 L 18 152/71 H 96 Intake/Output Intake/Output: Intake & Output 03/31/21 04/01/21 04/02/21 04/03/21 23:59 23:59 23:59 23:59 Intake Total 487 350 Output Total 550 500 Balance -63 -150 Meds/Results Medications: Active Medications Generic Name Dose Route Start Last Admin Trade Name Scott PRN Reason Stop Dose Admin Aspirin 81 mg 04/02/21 18:00 04/02/21 17:31 Aspirin 81 Mg Chewable Tablet PO 81 mg QPM PAT Administration Atenolol 50 mg 04/02/21 11:10 04/03/21 08:17 Atenolol 50 Mg Tablet PO 50 mg DAILY PAT Administration Dextrose 12.5 gm 04/03/21 11:10 Dextrose 50% 25 Gm/50 Ml Syringe IV PUSH PRN PRN Hypoglycemia Protocol Enoxaparin Sodium 30 mg 04/03/21 09:00 04/03/21 09:37 Enoxaparin 30 Mg/0.3 Ml Syringe SUB-Q 30 mg DAILY PAT Administration Glucagon 1 mg 04/03/21 11:10 Glucagon For Inj 1 Mg Vial IM PRN PRN Hypoglycemia Protocol Glucose 15 gm 04/03/21 11:10 Glucose Oral Gel 15 Gm Of Glucse In 37.5 Gm Tube PO PRN PRN Hypoglycemia Protocol Dextrose 1,000 mls @ 100 mls/hr 04/03/21 11:10 Dextrose 5% 1,000 Ml IVPB PRN PRN Hypoglycemia Protocol Insulin Aspart 2 - 5 units 04/03/21 12:00 04/03/21 12:45 Insulin Aspart (*Bkc) 100 Units/Ml SUB-Q Not Given TIDWM [facility] Protocol Latanoprost 1 drop 04/02/21 11:10 04/02/21 21:52 Latanoprost 0.005% Op Soln 2.5 Ml Btl EACH EYE 1 drop HS PAT Administration Ondansetron HCl 4 mg 04/02/21 14:13 04/02/21 20:38 Ondansetron Inj 4 Mg/2 Ml Vial IV PUSH 4 mg Q6H PRN Administration Nausea And Vomiting Senna 8.6 mg 04/02/21 12:29 Sennosides 8.6 Mg Tablet PO BID PRN Constipation Gian
[2021-04-03 14:45] VITALS: BP 187/74; PULSE 55; RESP 20; TEMP 36.5; O2SAT 97
[2021-04-03] MEDS: ASPIRIN 81 MG CHEWABLE TABLET PO (16:38)
[2021-04-03 17:51] VITALS: BP 182/80
[2021-04-03 18:44] LABS: Glucose Point of Care 147 mg/dl (65-105)
[2021-04-03] MEDS: NIFEdipine 10 MG CAPSULE 30 MG PO (18:49)
[2021-04-03] MEDS: LATANOPROST 0.005% OP SOLN 2.5 ML BTL 1 DROP EACH EYE (20:51)
[2021-04-03 21:16] LABS: Glucose Point of Care 220 mg/dl (65-105)
[2021-04-03 22:00] VITALS: BP 132/47; PULSE 54; RESP 18; TEMP 36.4; O2SAT 96
[2021-04-04 05:50] LABS: Basophils Percent Auto 0.4 % (0.2-1.2); Eosinophils Absolute Auto 0.1 K/mm3 (0-0.3); Eosinophils Percent Auto 0.7 % (0-4.4); Hematocrit 27.2 % (37.0-47.0); Hemoglobin 8.7 g/dL (12.0-15.0); Immature Granulocyte Absolute 0.02 K/mm3 (0.00-0.031); Immature Granulocyte Percent A 0.3 % (0-0.5); Lymphocytes Absolute Auto 1.76 K/mm3 (0.9-3.2); Lymphocytes Percent Auto 23.3 % (18.3-44.2); Mean Corpuscular Volume 96.8 fl (80-100); Monocytes Absolute Auto 0.8 K/mm3 (0.1-0.6); Monocytes Percent Auto 9.9 % (2.6-8.5); Neutrophils Percent Auto 65.4 % (45.5-73.1); Platelet Count Result 235 k/mm3 (150-375); Red Blood Count 2.81 M/mm3 (4.2-5.4); Red Cell Distribution Width 12.3 % (11.5-14.5); White Blood Count 7.6 K/mm3 (4.5-10.0)
[2021-04-04 06:00] VITALS: BP 145/54; PULSE 50; RESP 18; TEMP 36.1; O2SAT 96
[2021-04-04 06:12] LABS: Alanine Aminotransferase 14 U/L (4-35); Albumin Level 3.7 g/dL (3.5-5.1); Alkaline Phosphatase 61 U/L (38-126); Anion Gap 11 mmol/L (8-16); Aspartate Amino Transferase 20 U/L (14-36); Bilirubin,Total 0.4 mg/dL (0.2-1.3); Blood Urea Nitrogen 51 mg/dL (7-17); Calcium 9.2 mg/dL (8.4-10.2); Carbon Dioxide 24 mmol/L (22-30); Chloride 100 mmol/L (98-107); Estimated CRCL calculation 14 ml/min; Estimated Glomerular Filt Rate 13; Glucose 87 mg/dL (65-110); Magnesium 1.6 mg/dL (1.6-2.3); Phosphorus 5.1 mg/dL (2.5-4.5); Potassium 4.1 mmol/L (3.4-5.0); Sodium 135 mmol/L (137-145)
[2021-04-04 08:22] LABS: Glucose Point of Care 119 mg/dl (65-105)
--- NOTE | 2021-04-04 08:57 | P.PNIM_ITS ---
Progress Note: A&P Assessment and Plan (1) Acute kidney injury: Code(s): N17.9 - Acute kidney failure, unspecified Status: Acute Assessment and Plan: * BUN and creatinine elevated at 51/3.50 upon admission * trend labs * FENa 2.2% upon admission * Renal ultrasound showed normal kidney with no hydronephrosis (04/02/21) * BNP was 7660 on admission * Nephrology consulted thank you for your recommendations * Labs in the am * Urinary catheter- draining a cloudy yellow urine * Urine serology pending from 04/03/21 * ECHO showed EF 55-60% severe aortic stenosis severe pulmonary hypertension with pressure of 69 * Patient may need a renal biopsy * Renal flow scan: Symmetric kidney function, delayed renal contrast uptake and delayed renal contrast clearance, consistent with decreased renal function. 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 daily because of CANDICE * echo EF of 55-60 severe aortic stenosis with pulmonary pressure of 69 * Edema seems to be resolving and has a 1+ nonpitting * Weston smith on * trend labs * labs in a.m. * low-sodium diet * nephrology consulted thank you for your recommendations * Will get a repeat chest x-ray in the am (3) HTN (hypertension): Code(s): I10 - Essential (primary) hypertension Status: Chronic Assessment and Plan: * Current blood pressure 145/54 * Continue home atenolol 50mg PO daily * will add hydralazine 10mg PRN with parameters * Trend blood pressure * adjust medications as needed * Nifedipine 30mg PO once night of 04/03/21 for hypertension, will continue at this time (4) Nausea & vomiting: Code(s): R11.2 - Nausea with vomiting, unspecified Status: Acute Assessment and Plan: * Three episodes of vomiting reported 04/02/21 * One episode on 04/03/21 * Sometimes after eating * Zofran 4 mg IV push q.6 p.r.n. * KUB normal gas bowel pattern * advance diet as tolerated (5) Diabetes: Code(s): E11.9 - Type 2 diabetes mellitus without complications Status: Chronic Assessment and Plan: * Glucose is 87 * Hold home glimepiride and metformin * initiate sliding scale * hypoglycemia protocol * trend glucose * labs in the am * adjust medications as needed (6) Arthritis: Code(s): M19.90 - Unspecified osteoarthritis, unspecified site Status: Acute Assessment and Plan: * Hold home meloxicam for now * Resume when renal function is better if able (7) Glaucoma: Code(s): H40.9 - Unspecified glaucoma Status: Acute Assessment and Plan: * Continue timolol 1gtt BID, latanoprost 1gtt BID per eye (8) HLD (hyperlipidemia): Code(s): E78.5 - Hyperlipidemia, unspecified Status: Acute Assessment and Plan: * Hold home atorvastatin for now * Continue when able (9) Anemia: Code(s): D64.9 - Anemia, unspecified Status: Acute Assessment and Plan: * Remains stable * H/H stable at 8.7/27.2 * MCV 99.7 * Trend H/H * Anemia labs: Iron 68, TIBC is 2
--- NOTE | 2021-04-04 08:57 | PM.IMPN ---
Progress Note: A&P Assessment and Plan (1) Acute kidney injury: Code(s): N17.9 - Acute kidney failure, unspecified Status: Acute Assessment and Plan: BUN and creatinine elevated at 51/3.50 upon admission trend labs FENa 2.2% upon admission Renal ultrasound showed normal kidney with no hydronephrosis (04/02/21) BNP was 7660 on admission Nephrology consulted thank you for your recommendations Labs in the am Urinary catheter- draining a cloudy yellow urine Urine serology pending from 04/03/21 ECHO showed EF 55-60% severe aortic stenosis severe pulmonary hypertension with pressure of 69 Patient may need a renal biopsy Renal flow scan: Symmetric kidney function, delayed renal contrast uptake and delayed renal contrast clearance, consistent with decreased renal function. 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 daily because of CANDICE echo EF of 55-60 severe aortic stenosis with pulmonary pressure of 69 Edema seems to be resolving and has a 1+ nonpitting Weston hose on trend labs labs in a.m. low-sodium diet nephrology consulted thank you for your recommendations Will get a repeat chest x-ray in the am (3) HTN (hypertension): Code(s): I10 - Essential (primary) hypertension Status: Chronic Assessment and Plan: Current blood pressure 145/54 Continue home atenolol 50mg PO daily will add hydralazine 10mg PRN with parameters Trend blood pressure adjust medications as needed Nifedipine 30mg PO once night of 04/03/21 for hypertension, will continue at this time (4) Nausea & vomiting: Code(s): R11.2 - Nausea with vomiting, unspecified Status: Acute Assessment and Plan: Three episodes of vomiting reported 04/02/21 One episode on 04/03/21 Sometimes after eating Zofran 4 mg IV push q.6 p.r.n. KUB normal gas bowel pattern advance diet as tolerated (5) Diabetes: Code(s): E11.9 - Type 2 diabetes mellitus without complications Status: Chronic Assessment and Plan: Glucose is 87 Hold home glimepiride and metformin initiate sliding scale hypoglycemia protocol trend glucose labs in the am adjust medications as needed (6) Arthritis: Code(s): M19.90 - Unspecified osteoarthritis, unspecified site Status: Acute Assessment and Plan: Hold home meloxicam for now Resume when renal function is better if able (7) Glaucoma: Code(s): H40.9 - Unspecified glaucoma Status: Acute Assessment and Plan: Continue timolol 1gtt BID, latanoprost 1gtt BID per eye (8) HLD (hyperlipidemia): Code(s): E78.5 - Hyperlipidemia, unspecified Status: Acute Assessment and Plan: Hold home atorvastatin for now Continue when able (9) Anemia: Code(s): D64.9 - Anemia, unspecified Status: Acute Assessment and Plan: Remains stable H/H stable at 8.7/27.2 MCV 99.7 Trend H/H Anemia labs: Iron 68, TIBC is 231, saturation 29, ferritin 115, B12 424, folate 7.4 labs in a.m. transfuse if below 7 Time Spent With Patient Time with patient: Greater than 35 minutes Subjective Date/time seen: 04/04/21 07:30 Interval history: Patient is an 80 year old female with a past medical history of HTN, CHF, and HLD that presented to the ED for evaluation of abnormal labs. Today she is doing better and asking that her diet be advanced. She is tolerating clear liquids at this time. She did say that she had an episode of vomiting after her nuc med test yesterday. She currently denies nausea, an
[2021-04-04 10:26] VITALS: PULSE 59
[2021-04-04] MEDS: atenoloL 50 MG TABLET PO (10:26)
[2021-04-04] MEDS: NIFEdipine 30 MG TAB.ER.24 PO (10:27)
[2021-04-04] MEDS: ENOXAPARIN 30 MG/0.3 ML SYRINGE SUB-Q (10:27)
[2021-04-04] MEDS: TIMOLOL MALEATE 0.5% OP SOLN 5 ML BOTTLE 1 DROP EACH EYE ×2 (10:27→20:22)
[2021-04-04] MEDS: CHOLECALCIFEROL 1,000 UNITS TABLET 5000 UNITS PO (10:27)
[2021-04-04 12:19] LABS: Glucose Point of Care 152 mg/dl (65-105)
[2021-04-04 14:00] VITALS: BP 149/59; PULSE 56; RESP 20; TEMP 36.3; O2SAT 97
--- NOTE | 2021-04-04 15:31 | P.PNNP_ITS ---
Progress Note: A&P Assessment and Plan (1) Acute kidney injury: Code(s): N17.9 - Acute kidney failure, unspecified Status: Acute Assessment and Plan: * reported near normal kidney function (GFR ~ 58cc/min) about a year ago * etiology not clear * renal ultrasound without obstruction * urine electrolytes non-prerenal (but she was on diuretic therapy) * Echo results noted -- aortic stenosis +/- pulmonary HTN playing a role? * UA suggestive of a possible UTI...follow-up on culture * serological evaluation underway * may need to consider a renal biopsy for a definitive diagnosis if renal function fails to improve with conservative therapy * renal scan noted -- symmetric blood flow * follow repeat labs and UOP (2) CHF (congestive heart failure): Code(s): I50.9 - Heart failure, unspecified Status: Acute Assessment and Plan: * as evidence by imaging and exam on presentation * on diuretics as an outpatient * Echo results noted * check CXR (3) Urinary tract infection: Code(s): N39.0 - Urinary tract infection, site not specified Status: Acute Assessment and Plan: * urine culture with E. coli * start antibiotics (4) HTN (hypertension): Code(s): I10 - Essential (primary) hypertension Status: Chronic Assessment and Plan: * reasonable control at this time * follow trend of hemodynamics (5) Anemia: Code(s): D64.9 - Anemia, unspecified Status: Acute Assessment and Plan: * related to kidney dysfunction? * follow trend of H/H (6) Diabetes: Code(s): E11.9 - Type 2 diabetes mellitus without complications Status: Chronic Assessment and Plan: * follow accuhecks * glycemic control Long and extensive discussion (> 20 minutes) with daughter at bedside and patien t regarding her renal function that is stable (but not improving) and the consideration of renal biopsy for a definitive diagnosis. Will continue to follow. Subjective Date/time seen: 04/04/21 15:31 No apparent distress noted; daughter at bedside and we discussed the situation; reasonable urine output but no significant change in renal function since admission; no events/issues overnight or earlier this AM Exam Narrative: General: WD/WN female in NAD Heart: normal S1 and S2; no rub Lungs: decreased at bases Abdomen: soft, nontender, nondistended, positive bowel sounds Extremities: no cyanosis or clubbing; 2 - 3+ edema Skin: warm and dry Objective Data Vital Signs Vital Signs: Vital Signs Temp Pulse Resp BP Pulse Ox 04/04/21 14:00 36.3 C L 56 L 20 149/59 H 97 04/04/21 10:26 59 L 04/04/21 06:00 36.1 C L 50 L 18 145/54 H 96 04/03/21 22:00 36.4 C 54 L 18 132/47 L 96 04/03/21 17:51 182/80 H Intake/Output Intake/Output: Intake & Output 04/01/21 04/02/21 04/03/21 04/04/21 23:59 23:59 23:59 23:59 Intake Total 487 1550 1080 Output Total 550 1000 500 Balance -63 550 580 Meds/Results Medications: Active Medications Generic Name Dose Route Start Last Admin Trade Name Freq PRN Reason Stop Dose Admin Aspirin 81 mg 04/02/21 18:00 04/03/21 16:38 Aspirin 81 Mg Chewable Tablet PO 81 mg QPM PAT Administration
--- NOTE | 2021-04-04 15:31 | PM.PNNEP ---
Progress Note: A&P Assessment and Plan (1) Acute kidney injury: Code(s): N17.9 - Acute kidney failure, unspecified Status: Acute Assessment and Plan: reported near normal kidney function (GFR ~ 58cc/min) about a year ago etiology not clear renal ultrasound without obstruction urine electrolytes non-prerenal (but she was on diuretic therapy) Echo results noted -- aortic stenosis +/- pulmonary HTN playing a role? UA suggestive of a possible UTI...follow-up on culture serological evaluation underway may need to consider a renal biopsy for a definitive diagnosis if renal function fails to improve with conservative therapy renal scan noted -- symmetric blood flow follow repeat labs and UOP (2) CHF (congestive heart failure): Code(s): I50.9 - Heart failure, unspecified Status: Acute Assessment and Plan: as evidence by imaging and exam on presentation on diuretics as an outpatient Echo results noted check CXR (3) Urinary tract infection: Code(s): N39.0 - Urinary tract infection, site not specified Status: Acute Assessment and Plan: urine culture with E. coli start antibiotics (4) HTN (hypertension): Code(s): I10 - Essential (primary) hypertension Status: Chronic Assessment and Plan: reasonable control at this time follow trend of hemodynamics (5) Anemia: Code(s): D64.9 - Anemia, unspecified Status: Acute Assessment and Plan: related to kidney dysfunction? follow trend of H/H (6) Diabetes: Code(s): E11.9 - Type 2 diabetes mellitus without complications Status: Chronic Assessment and Plan: follow accuhecks glycemic control Long and extensive discussion (> 20 minutes) with daughter at bedside and patient regarding her renal function that is stable (but not improving) and the consideration of renal biopsy for a definitive diagnosis. Will continue to follow. Subjective Date/time seen: 04/04/21 15:31 No apparent distress noted; daughter at bedside and we discussed the situation; reasonable urine output but no significant change in renal function since admission; no events/issues overnight or earlier this AM Exam Narrative: General: WD/WN female in NAD Heart: normal S1 and S2; no rub Lungs: decreased at bases Abdomen: soft, nontender, nondistended, positive bowel sounds Extremities: no cyanosis or clubbing; 2 - 3+ edema Skin: warm and dry Objective Data Vital Signs Vital Signs: Vital Signs Temp Pulse Resp BP Pulse Ox 08/13/21 14:00 36.3 C L 56 L 20 149/59 H 97 04/04/21 10:26 59 L 04/04/21 06:00 36.1 C L 50 L 18 145/54 H 96 04/03/21 22:00 36.4 C 54 L 18 132/47 L 96 04/03/21 17:51 182/80 H Intake/Output Intake/Output: Intake & Output 04/01/21 04/02/21 04/03/21 04/04/21 23:59 23:59 23:59 23:59 Intake Total 487 1550 1080 Output Total 550 1000 500 Balance -63 550 580 Meds/Results Medications: Active Medications Generic Name Dose Route Start Last Admin Trade Name Freq PRN Reason Stop Dose Admin Aspirin 81 mg 04/02/21 18:00 04/03/21 16:38 Aspirin 81 Mg Chewable Tablet PO 81 mg QPM PAT Administration Atenolol 50 mg 04/02/21 11:10 04/04/21 10:26 Atenolol 50 Mg Tablet PO 50 mg DAILY PAT Administration Dextrose 12.5 gm 04/03/21 11:10 Dextrose 50% 25 Gm/50 Ml Syringe IV PUSH PRN PRN Hypoglycemia Protocol Enoxaparin Sodium 30 mg 04/03/21 09:00 04/04/21 10:27 Enoxaparin 30 Mg/0.3 Ml Syringe SUB-Q 30 mg DAILY PAT Administration Glucagon 1 mg 04/03/21 11:10 Glucagon For Inj 1 Mg Vial IM PRN PRN Hypoglycemia Protocol Glucose 15 gm 04/03/21 11:10 Glucose Oral Gel 15 Gm Of Glucse In 37.5 Gm Tube PO PRN PRN Hypoglycemia Protocol Dextrose 1,000 mls @ 100 mls/hr 04/03/21 11:10 Dextrose 5% 1,000 Ml IVPB PRN PRN Hyp
[2021-04-04 17:35] LABS: Glucose Point of Care 157 mg/dl (65-105)
[2021-04-04] MEDS: ASPIRIN 81 MG CHEWABLE TABLET PO (18:45)
--- NOTE | 2021-04-04 18:55 | PC.NURSE ---
Pt daughter shared that the only change that her other has had in recent weeks is she received the Pfizer vaccine. She wonders if this could be the possible cause of patient's kidney problems.
[2021-04-04 20:00] VITALS: PULSE 56; RESP 20; O2SAT 97
[2021-04-04] MEDS: LATANOPROST 0.005% OP SOLN 2.5 ML BTL 1 DROP EACH EYE (20:22)
[2021-04-04 20:47] VITALS: BP 145/48; PULSE 55; RESP 20; TEMP 36; O2SAT 98
[2021-04-05] MEDS: ONDANSETRON INJ 4 MG/2 ML VIAL IV PUSH (03:04)
[2021-04-05 04:19] VITALS: BP 152/67; PULSE 66; RESP 20; TEMP 36.1; O2SAT 93
[2021-04-05 05:44] LABS: Basophils Percent Auto 0.2 % (0.2-1.2); Eosinophils Percent Auto 0.4 % (0-4.4); Hemoglobin 8.4 g/dL (12.0-15.0); Immature Granulocyte Absolute 0.03 K/mm3 (0.00-0.031); Immature Granulocyte Percent A 0.4 % (0-0.5); Lymphocytes Absolute Auto 1.08 K/mm3 (0.9-3.2); Lymphocytes Percent Auto 13.3 % (18.3-44.2); Mean Corpuscular HGB Conc 32.3 g/dl (32-36); Mean Corpuscular Hemoglobin 31.6 pg (26-34); Mean Corpuscular Volume 97.7 fl (80-100); Monocytes Percent Auto 11.9 % (2.6-8.5); Neutrophils Percent Auto 73.8 % (45.5-73.1); Platelet Count Result 219 k/mm3 (150-375); Red Blood Count 2.66 M/mm3 (4.2-5.4); Red Cell Distribution Width 12.6 % (11.5-14.5); White Blood Count 8.1 K/mm3 (4.5-10.0)
[2021-04-05 05:57] LABS: Alanine Aminotransferase 15 U/L (4-35); Albumin Level 3.4 g/dL (3.5-5.1); Alkaline Phosphatase 63 U/L (38-126); Anion Gap 9 mmol/L (8-16); Aspartate Amino Transferase 19 U/L (14-36); Bilirubin,Total 0.5 mg/dL (0.2-1.3); Blood Urea Nitrogen 47 mg/dL (7-17); Calcium 9.1 mg/dL (8.4-10.2); Carbon Dioxide 25 mmol/L (22-30); Chloride 104 mmol/L (98-107); Estimated CRCL calculation 16 ml/min; Estimated Glomerular Filt Rate 14; Glucose 128 mg/dL (65-110); Magnesium 1.6 mg/dL (1.6-2.3); Potassium 4.1 mmol/L (3.4-5.0); Sodium 138 mmol/L (137-145)
--- NOTE | 2021-04-05 08:55 | PC.NURSE ---
unable to give patient 0900 atenolol on time. missing medication, pharmacy notified of missing med.
[2021-04-05] MEDS: CHOLECALCIFEROL 1,000 UNITS TABLET 5000 UNITS PO (08:57)
[2021-04-05] MEDS: TIMOLOL MALEATE 0.5% OP SOLN 5 ML BOTTLE 1 DROP EACH EYE ×2 (08:57→20:42)
[2021-04-05] MEDS: NIFEdipine 30 MG TAB.ER.24 PO (08:57)
[2021-04-05] MEDS: ENOXAPARIN 30 MG/0.3 ML SYRINGE SUB-Q (08:57)
[2021-04-05 09:45] VITALS: PULSE 66
[2021-04-05] MEDS: atenoloL 50 MG TABLET PO (09:45)
[2021-04-05 09:51] LABS: Glucose Point of Care 117 mg/dl (65-105)
--- NOTE | 2021-04-05 10:55 | P.PNIM_ITS ---
Progress Note: A&P Assessment and Plan (1) Acute kidney injury: Code(s): N17.9 - Acute kidney failure, unspecified Status: Acute Assessment and Plan: * BUN and creatinine elevated at 51/3.50 upon admission, trend BUN CR * FENa 2.2% upon admission * Renal ultrasound showed normal kidney with no hydronephrosis (04/02/21) * BNP was 7660 on admission * Nephrology consulted thank you for your recommendations * Urine serology pending from 04/03/21 * ECHO showed EF 55-60% severe aortic stenosis severe pulmonary hypertension with pressure of 69 * Renal flow scan: Symmetric kidney function, delayed renal contrast uptake and delayed renal contrast clearance, consistent with decreased renal function. 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 daily because of CANDICE * echo EF of 55-60 severe aortic stenosis with pulmonary pressure of 69 * Edema worsening at 2+ * Weston smith on * low-sodium diet * nephrology consulted thank you for your recommendations (3) HTN (hypertension): Code(s): I10 - Essential (primary) hypertension Status: Chronic Assessment and Plan: * Current blood pressure 152/67 * Continue home atenolol 50mg PO daily * will add hydralazine 10mg PRN with parameters * Trend blood pressure * adjust medications as needed * Nifedipine 30mg PO once night of 04/03/21 for hypertension, will continue at this time (4) Nausea & vomiting: Code(s): R11.2 - Nausea with vomiting, unspecified Status: Acute Assessment and Plan: * Three episodes of vomiting reported 04/02/21, One episode on 04/03/21 * Zofran 4 mg IV push q.6 p.r.n. * KUB normal gas bowel pattern * Last BM weds, add senna and Colace * advance diet as tolerated (5) Diabetes: Code(s): E11.9 - Type 2 diabetes mellitus without complications Status: Chronic Assessment and Plan: * Glucose is 128 * Hold home glimepiride and metformin * initiate sliding scale * hypoglycemia protocol * trend glucose * labs in the am * adjust medications as needed (6) Arthritis: Code(s): M19.90 - Unspecified osteoarthritis, unspecified site Status: Acute Assessment and Plan: * Hold home meloxicam for now * Resume when renal function is better if able (7) Glaucoma: Code(s): H40.9 - Unspecified glaucoma Status: Acute Assessment and Plan: * Continue timolol 1gtt BID, latanoprost 1gtt BID per eye (8) HLD (hyperlipidemia): Code(s): E78.5 - Hyperlipidemia, unspecified Status: Acute Assessment and Plan: * Hold home atorvastatin for now * Continue when able (9) Anemia: Code(s): D64.9 - Anemia, unspecified Status: Acute Assessment and Plan: * Remains stable * H/H stable at 8.4/26.0 * MCV 99.7 * Trend H/H * Anemia labs: Iron 68, TIBC is 231, saturation 29, ferritin 115, B12 424, folate 7.4 * labs in a.m. * transfuse if below 7
--- NOTE | 2021-04-05 10:55 | PM.IMPN ---
Progress Note: A&P Assessment and Plan (1) Acute kidney injury: Code(s): N17.9 - Acute kidney failure, unspecified Status: Acute Assessment and Plan: BUN and creatinine elevated at 51/3.50 upon admission, trend BUN CR FENa 2.2% upon admission Renal ultrasound showed normal kidney with no hydronephrosis (04/02/21) BNP was 7660 on admission Nephrology consulted thank you for your recommendations Urine serology pending from 04/03/21 ECHO showed EF 55-60% severe aortic stenosis severe pulmonary hypertension with pressure of 69 Renal flow scan: Symmetric kidney function, delayed renal contrast uptake and delayed renal contrast clearance, consistent with decreased renal function. 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 daily because of CANDICE echo EF of 55-60 severe aortic stenosis with pulmonary pressure of 69 Edema worsening at 2+ Weston sarah on low-sodium diet nephrology consulted thank you for your recommendations (3) HTN (hypertension): Code(s): I10 - Essential (primary) hypertension Status: Chronic Assessment and Plan: Current blood pressure 152/67 Continue home atenolol 50mg PO daily will add hydralazine 10mg PRN with parameters Trend blood pressure adjust medications as needed Nifedipine 30mg PO once night of 04/03/21 for hypertension, will continue at this time (4) Nausea & vomiting: Code(s): R11.2 - Nausea with vomiting, unspecified Status: Acute Assessment and Plan: Three episodes of vomiting reported 04/02/21, One episode on 04/03/21 Zofran 4 mg IV push q.6 p.r.n. KUB normal gas bowel pattern Last BM weds, add senna and Colace advance diet as tolerated (5) Diabetes: Code(s): E11.9 - Type 2 diabetes mellitus without complications Status: Chronic Assessment and Plan: Glucose is 128 Hold home glimepiride and metformin initiate sliding scale hypoglycemia protocol trend glucose labs in the am adjust medications as needed (6) Arthritis: Code(s): M19.90 - Unspecified osteoarthritis, unspecified site Status: Acute Assessment and Plan: Hold home meloxicam for now Resume when renal function is better if able (7) Glaucoma: Code(s): H40.9 - Unspecified glaucoma Status: Acute Assessment and Plan: Continue timolol 1gtt BID, latanoprost 1gtt BID per eye (8) HLD (hyperlipidemia): Code(s): E78.5 - Hyperlipidemia, unspecified Status: Acute Assessment and Plan: Hold home atorvastatin for now Continue when able (9) Anemia: Code(s): D64.9 - Anemia, unspecified Status: Acute Assessment and Plan: Remains stable H/H stable at 8.4/26.0 MCV 99.7 Trend H/H Anemia labs: Iron 68, TIBC is 231, saturation 29, ferritin 115, B12 424, folate 7.4 labs in a.m. transfuse if below 7 Subjective Date/time seen: 04/05/21 10:30 Interval history: Ms. Goins is an 80-year-old female here for evaluation of abnormal labs. It was noted that the patient's renal function went from normal to less than 10% in a very short amount of time. Patient said she was doing better than yesterday today she also stated that she was unable to lay flat still because she will throw up. she did have 1 bout of nausea this morning which was controlled with Zofran. She was able to eat her breakfast and did stay down and her nausea is controlled at this point. She also stated that she has
--- NOTE | 2021-04-05 11:07 | PM.PNNEP ---
Progress Note: A&P Assessment and Plan (1) Acute kidney injury: Code(s): N17.9 - Acute kidney failure, unspecified Status: Acute Assessment and Plan: reported near normal kidney function (GFR ~ 58cc/min) about a year ago etiology not clear renal ultrasound without obstruction urine electrolytes non-prerenal (but she was on diuretic therapy) Echo results noted -- aortic stenosis +/- pulmonary HTN playing a role? serological evaluation underway may need to consider a renal biopsy for a definitive diagnosis if renal function fails to improve with conservative therapy/recent testing (tentatively plan of Wednesday) renal scan noted -- symmetric blood flow follow repeat labs and UOP (2) CHF (congestive heart failure): Code(s): I50.9 - Heart failure, unspecified Status: Acute Assessment and Plan: as evidence by imaging and exam on presentation on diuretics as an outpatient Echo results noted repeat CXR noted -- may need to restart diuretics eventually (3) Urinary tract infection: Code(s): N39.0 - Urinary tract infection, site not specified Status: Acute Assessment and Plan: urine culture with E. coli on antibiotics (4) HTN (hypertension): Code(s): I10 - Essential (primary) hypertension Status: Chronic Assessment and Plan: reasonable control at this time follow trend of hemodynamics (5) Anemia: Code(s): D64.9 - Anemia, unspecified Status: Acute Assessment and Plan: related to kidney dysfunction? follow trend of H/H (6) Diabetes: Code(s): E11.9 - Type 2 diabetes mellitus without complications Status: Chronic Assessment and Plan: follow accuhecks glycemic control Will continue to follow. Subjective Date/time seen: 04/05/21 11:07 Sitting up in chair and in no apparent distress; daughter at bedside and discussed the case once again; urine culture positive but patient is otherwise asymptomatic; CXR noted this AM but patient denies any shortness of breath at the time of my visit. Exam Narrative: General: WD/WN female in NAD Heart: normal S1 and S2; no rub Lungs: decreased at bases Abdomen: soft, nontender, nondistended, positive bowel sounds Extremities: no cyanosis or clubbing; 2 - 3+ edema Skin: warm and dry Objective Data Vital Signs Vital Signs: Vital Signs Temp Pulse Resp BP Pulse Ox 04/05/21 09:45 66 04/05/21 04:19 36.1 C L 66 20 152/67 H 93 04/04/21 20:47 36.0 C L 55 L 20 145/48 H 98 04/04/21 20:00 56 L 20 97 Intake/Output Intake/Output: Intake & Output 04/02/21 04/03/21 04/04/21 04/05/21 23:59 23:59 23:59 23:59 Intake Total 487 1550 1740 1010 Output Total 550 1000 1700 550 Balance -63 550 40 460 Meds/Results Medications: Active Medications Generic Name Dose Route Start Last Admin Trade Name Freq PRN Reason Stop Dose Admin Aspirin 81 mg 04/02/21 18:00 04/04/21 18:45 Aspirin 81 Mg Chewable Tablet PO 81 mg QPM PAT Administration Atenolol 50 mg 04/02/21 11:10 04/05/21 09:45 Atenolol 50 Mg Tablet PO 50 mg DAILY PAT Administration Dextrose 12.5 gm 04/03/21 11:10 Dextrose 50% 25 Gm/50 Ml Syringe IV PUSH PRN PRN Hypoglycemia Protocol Docusate Sodium 100 mg 04/05/21 21:00 Docusate Sodium 100 Mg Capsule PO Q12HR PAT Enoxaparin Sodium 30 mg 04/03/21 09:00 04/05/21 08:57 Enoxaparin 30 Mg/0.3 Ml Syringe SUB-Q 30 mg DAILY PAT Administration Glucagon 1 mg 04/03/21 11:10 Glucagon For Inj 1 Mg Vial IM PRN PRN Hypoglycemia Protocol Glucose 15 gm 04/03/21 11:10 Glucose Oral Gel 15 Gm Of Glucse In 37.5 Gm Tube PO PRN PRN Hypoglycemia Protocol Dextrose 1,000 mls @ 100 mls/hr 04/03/21 11:10 Dextrose 5% 1,000 Ml IVPB PRN PRN Hypoglycemia Protocol Ceftriaxone Sodium/Dextrose 1 gm in 50 mls @ 100 mls/h
--- NOTE | 2021-04-05 11:07 | P.PNNP_ITS ---
Progress Note: A&P Assessment and Plan (1) Acute kidney injury: Code(s): N17.9 - Acute kidney failure, unspecified Status: Acute Assessment and Plan: * reported near normal kidney function (GFR ~ 58cc/min) about a year ago * etiology not clear * renal ultrasound without obstruction * urine electrolytes non-prerenal (but she was on diuretic therapy) * Echo results noted -- aortic stenosis +/- pulmonary HTN playing a role? * serological evaluation underway * may need to consider a renal biopsy for a definitive diagnosis if renal function fails to improve with conservative therapy/recent testing (tentatively plan of Wednesday) * renal scan noted -- symmetric blood flow * follow repeat labs and UOP (2) CHF (congestive heart failure): Code(s): I50.9 - Heart failure, unspecified Status: Acute Assessment and Plan: * as evidence by imaging and exam on presentation * on diuretics as an outpatient * Echo results noted * repeat CXR noted -- may need to restart diuretics eventually (3) Urinary tract infection: Code(s): N39.0 - Urinary tract infection, site not specified Status: Acute Assessment and Plan: * urine culture with E. coli * on antibiotics (4) HTN (hypertension): Code(s): I10 - Essential (primary) hypertension Status: Chronic Assessment and Plan: * reasonable control at this time * follow trend of hemodynamics (5) Anemia: Code(s): D64.9 - Anemia, unspecified Status: Acute Assessment and Plan: * related to kidney dysfunction? * follow trend of H/H (6) Diabetes: Code(s): E11.9 - Type 2 diabetes mellitus without complications Status: Chronic Assessment and Plan: * follow accuhecks * glycemic control Will continue to follow. Subjective Date/time seen: 04/05/21 11:07 Sitting up in chair and in no apparent distress; daughter at bedside and discussed the case once again; urine culture positive but patient is otherwise asymptomatic; CXR noted this AM but patient denies any shortness of breath at the time of my visit. Exam Narrative: General: WD/WN female in NAD Heart: normal S1 and S2; no rub Lungs: decreased at bases Abdomen: soft, nontender, nondistended, positive bowel sounds Extremities: no cyanosis or clubbing; 2 - 3+ edema Skin: warm and dry Objective Data Vital Signs Vital Signs: Vital Signs Temp Pulse Resp BP Pulse Ox 04/05/21 09:45 66 04/05/21 04:19 36.1 C L 66 20 152/67 H 93 04/04/21 20:47 36.0 C L 55 L 20 145/48 H 98 04/04/21 20:00 56 L 20 97 Intake/Output Intake/Output: Intake & Output 04/02/21 04/03/21 04/04/21 04/05/21 23:59 23:59 23:59 23:59 Intake Total 487 1550 1740 1010 Output Total 550 1000 1700 550 Balance -63 550 40 460 Meds/Results Medications: Active Medications Generic Name Dose Route Start Last Admin Trade Name Freq PRN Reason Stop Dose Admin Aspirin 81 mg 04/02/21 18:00 04/04/21 18:45 Aspirin 81 Mg Chewable Tablet PO 81 mg QPM PAT Administration Atenolol 50 mg 04/02/21 11:10 04/05/21 09:45 Atenolol 50 Mg Tablet PO 50 mg DAILY PAT Administration Dextrose 12.5 gm 04/03/21 11:10 De
[2021-04-05] MEDS: SENNA/DOCUSATE SODIUM TABLET 1 TAB PO (12:11)
[2021-04-05 13:47] VITALS: BP 138/46; PULSE 58; RESP 18; TEMP 36.7; O2SAT 100
[2021-04-05 14:10] LABS: Glucose Point of Care 156 mg/dl (65-105)
[2021-04-05] MEDS: ASPIRIN 81 MG CHEWABLE TABLET PO (17:02)
[2021-04-05 17:05] LABS: Glucose Point of Care 119 mg/dl (65-105)
[2021-04-05] MEDS: DOCUSATE SODIUM 100 MG CAPSULE PO (20:06)
[2021-04-05] MEDS: LATANOPROST 0.005% OP SOLN 2.5 ML BTL 1 DROP EACH EYE (20:06)
[2021-04-05 21:15] LABS: Glucose Point of Care 166 mg/dl (65-105)
[2021-04-05 22:00] VITALS: BP 146/54; PULSE 59; RESP 16; TEMP 36.4; O2SAT 98
[2021-04-06 05:25] VITALS: BP 140/50; PULSE 56; RESP 16; TEMP 36.1; O2SAT 98
[2021-04-06 05:54] LABS: Hematocrit 24.8 % (37.0-47.0); Hemoglobin 8.1 g/dL (12.0-15.0); Mean Corpuscular HGB Conc 32.7 g/dl (32-36); Mean Corpuscular Hemoglobin 32.8 pg (26-34); Mean Corpuscular Volume 100.4 fl (80-100); Platelet Count Result 202 k/mm3 (150-375); Red Blood Count 2.47 M/mm3 (4.2-5.4); Red Cell Distribution Width 12.5 % (11.5-14.5); White Blood Count 7.4 K/mm3 (4.5-10.0)
[2021-04-06 06:07] LABS: Albumin Level 3.3 g/dL (3.5-5.1); Anion Gap 7 mmol/L (8-16); Blood Urea Nitrogen 47 mg/dL (7-17); Calcium 8.8 mg/dL (8.4-10.2); Carbon Dioxide 27 mmol/L (22-30); Chloride 99 mmol/L (98-107); Estimated CRCL calculation 15 ml/min; Estimated Glomerular Filt Rate 13; Glucose 108 mg/dL (65-110); Phosphorus 5.3 mg/dL (2.5-4.5); Potassium 3.8 mmol/L (3.4-5.0); Sodium 133 mmol/L (137-145)
[2021-04-06 06:11] LABS: Alanine Aminotransferase 13 U/L (4-35); Albumin Level 3.2 g/dL (3.5-5.1); Alkaline Phosphatase 65 U/L (38-126); Anion Gap 10 mmol/L (8-16); Aspartate Amino Transferase 15 U/L (14-36); Bilirubin,Total 0.4 mg/dL (0.2-1.3); Blood Urea Nitrogen 47 mg/dL (7-17); Calcium 8.8 mg/dL (8.4-10.2); Carbon Dioxide 25 mmol/L (22-30); Chloride 99 mmol/L (98-107); Estimated CRCL calculation 15 ml/min; Estimated Glomerular Filt Rate 13; Glucose 105 mg/dL (65-110); Magnesium 1.6 mg/dL (1.6-2.3); Potassium 3.9 mmol/L (3.4-5.0); Sodium 134 mmol/L (137-145)
[2021-04-06 07:48] LABS: Glucose Point of Care 105 mg/dl (65-105)
[2021-04-06] MEDS: NIFEdipine 30 MG TAB.ER.24 PO (09:13)
[2021-04-06] MEDS: SENNA/DOCUSATE SODIUM TABLET 1 TAB PO (09:15)
[2021-04-06] MEDS: CHOLECALCIFEROL 1,000 UNITS TABLET 5000 UNITS PO (09:15)
[2021-04-06] MEDS: TIMOLOL MALEATE 0.5% OP SOLN 5 ML BOTTLE 1 DROP EACH EYE ×2 (09:16→21:34)
[2021-04-06] MEDS: ENOXAPARIN 30 MG/0.3 ML SYRINGE SUB-Q (09:16)
[2021-04-06 09:32] VITALS: PULSE 56
[2021-04-06] MEDS: atenoloL 50 MG TABLET PO (09:32)
--- NOTE | 2021-04-06 09:53 | P.PNNP_ITS ---
Progress Note: A&P Assessment and Plan (1) Acute kidney injury: Code(s): N17.9 - Acute kidney failure, unspecified Status: Acute Assessment and Plan: * reported near normal kidney function (GFR ~ 58cc/min) about a year ago * etiology not clear * renal ultrasound without obstruction * urine electrolytes non-prerenal (but she was on diuretic therapy) * Echo results noted -- severe aortic stenosis +/- pulmonary HTN playing a role? * serological evaluation underway - most test still pending * planning renal biopsy for a definitive diagnosis (tentatively plan for Wednesday) * renal scan noted -- symmetric blood flow * follow repeat labs and UOP (2) CHF (congestive heart failure): Code(s): I50.9 - Heart failure, unspecified Status: Acute Assessment and Plan: * as evidence by imaging and exam on presentation * on diuretics as an outpatient * Echo results noted * repeat CXR noted * will give a dose of bumex today (3) Urinary tract infection: Code(s): N39.0 - Urinary tract infection, site not specified Status: Acute Assessment and Plan: * urine culture with E. coli * on antibiotics (4) HTN (hypertension): Code(s): I10 - Essential (primary) hypertension Status: Chronic Assessment and Plan: * reasonable control at this time * follow trend of hemodynamics (5) Anemia: Code(s): D64.9 - Anemia, unspecified Status: Acute Assessment and Plan: * related to kidney dysfunction? * follow trend of H/H * consider Epogen (6) Diabetes: Code(s): E11.9 - Type 2 diabetes mellitus without complications Status: Chronic Assessment and Plan: * follow accuhecks * glycemic control Will continue to follow. Subjective Date/time seen: 04/06/21 09:53 No apparent distress voiced at this time; she notes some mild shortness of breath with conversation and her lower extremity edema seems a bit worse in comparison to admission; no acute events overnight or earlier this AM. Exam Narrative: General: WD/WN female in NAD Heart: normal S1 and S2; no rub Lungs: decreased at bases Abdomen: soft, nontender, nondistended, positive bowel sounds Extremities: no cyanosis or clubbing; 2 - 3+ edema Skin: warm and intact Objective Data Vital Signs Vital Signs: Vital Signs Temp Pulse Resp BP Pulse Ox 04/06/21 09:32 56 L 04/06/21 05:25 36.1 C L 56 L 16 140/50 L 98 04/05/21 22:00 36.4 C L 59 L 16 146/54 H 98 04/05/21 13:47 36.7 C 58 L 18 138/46 L 100 Intake/Output Intake/Output: Intake & Output 04/03/21 04/04/21 04/05/21 04/06/21 23:59 23:59 23:59 23:59 Intake Total 1550 1740 1300 Output Total 1000 1700 1000 650 Balance 550 40 300 -650 Meds/Results Medications: Active Medications Generic Name Dose Route Start Last Admin Trade Name Freq PRN Reason Stop Dose Admin Aspirin 81 mg 04/02/21 18:00 04/05/21 17:02 Aspirin 81 Mg Chewable Tablet PO 81 mg QPM PAT Administration Atenolol 50 mg 04/02/21 11:10 04/06/21 09:32 Atenolol 50 Mg Tablet PO 50 mg DAILY PAT Administration Dextrose 12.5 gm 04/03/21 11:10 Dextrose 50% 25 Gm/50 Ml Syringe IV PUSH
--- NOTE | 2021-04-06 09:53 | PM.PNNEP ---
Progress Note: A&P Assessment and Plan (1) Acute kidney injury: Code(s): N17.9 - Acute kidney failure, unspecified Status: Acute Assessment and Plan: reported near normal kidney function (GFR ~ 58cc/min) about a year ago etiology not clear renal ultrasound without obstruction urine electrolytes non-prerenal (but she was on diuretic therapy) Echo results noted -- severe aortic stenosis +/- pulmonary HTN playing a role? serological evaluation underway - most test still pending planning renal biopsy for a definitive diagnosis (tentatively plan for Wednesday) renal scan noted -- symmetric blood flow follow repeat labs and UOP (2) CHF (congestive heart failure): Code(s): I50.9 - Heart failure, unspecified Status: Acute Assessment and Plan: as evidence by imaging and exam on presentation on diuretics as an outpatient Echo results noted repeat CXR noted will give a dose of bumex today (3) Urinary tract infection: Code(s): N39.0 - Urinary tract infection, site not specified Status: Acute Assessment and Plan: urine culture with E. coli on antibiotics (4) HTN (hypertension): Code(s): I10 - Essential (primary) hypertension Status: Chronic Assessment and Plan: reasonable control at this time follow trend of hemodynamics (5) Anemia: Code(s): D64.9 - Anemia, unspecified Status: Acute Assessment and Plan: related to kidney dysfunction? follow trend of H/H consider Epogen (6) Diabetes: Code(s): E11.9 - Type 2 diabetes mellitus without complications Status: Chronic Assessment and Plan: follow accuhecks glycemic control Will continue to follow. Subjective Date/time seen: 04/06/21 09:53 No apparent distress voiced at this time; she notes some mild shortness of breath with conversation and her lower extremity edema seems a bit worse in comparison to admission; no acute events overnight or earlier this AM. Exam Narrative: General: WD/WN female in NAD Heart: normal S1 and S2; no rub Lungs: decreased at bases Abdomen: soft, nontender, nondistended, positive bowel sounds Extremities: no cyanosis or clubbing; 2 - 3+ edema Skin: warm and intact Objective Data Vital Signs Vital Signs: Vital Signs Temp Pulse Resp BP Pulse Ox 04/06/21 09:32 56 L 04/06/21 05:25 36.1 C L 56 L 16 140/50 L 98 08/14/21 22:00 36.4 C L 59 L 16 146/54 H 98 04/05/21 13:47 36.7 C 58 L 18 138/46 L 100 Intake/Output Intake/Output: Intake & Output 04/03/21 04/04/21 04/05/21 04/06/21 23:59 23:59 23:59 23:59 Intake Total 1550 1740 1300 Output Total 1000 1700 1000 650 Balance 550 40 300 -650 Meds/Results Medications: Active Medications Generic Name Dose Route Start Last Admin Trade Name Freq PRN Reason Stop Dose Admin Aspirin 81 mg 04/02/21 18:00 04/05/21 17:02 Aspirin 81 Mg Chewable Tablet PO 81 mg QPM PAT Administration Atenolol 50 mg 04/02/21 11:10 04/06/21 09:32 Atenolol 50 Mg Tablet PO 50 mg DAILY PAT Administration Dextrose 12.5 gm 04/03/21 11:10 Dextrose 50% 25 Gm/50 Ml Syringe IV PUSH PRN PRN Hypoglycemia Protocol Docusate Sodium 100 mg 04/05/21 21:00 04/05/21 20:06 Docusate Sodium 100 Mg Capsule PO 100 mg Q12HR PAT Administration Enoxaparin Sodium 30 mg 04/03/21 09:00 04/06/21 09:16 Enoxaparin 30 Mg/0.3 Ml Syringe SUB-Q 30 mg DAILY PAT Administration Glucagon 1 mg 04/03/21 11:10 Glucagon For Inj 1 Mg Vial IM PRN PRN Hypoglycemia Protocol Glucose 15 gm 04/03/21 11:10 Glucose Oral Gel 15 Gm Of Glucse In 37.5 Gm Tube PO PRN PRN Hypoglycemia Protocol Dextrose 1,000 mls @ 100 mls/hr 04/03/21 11:10 Dextrose 5% 1,000 Ml IVPB PRN PRN Hypoglycemia Protocol Ceftriaxone Sodium/Dextrose 1 gm in 50 mls @ 100 mls/hr 04/05/21 13:00
[2021-04-06 11:35] LABS: ANCA Screen Negative (Negative)
[2021-04-06 11:55] LABS: Glucose Point of Care 142 mg/dl (65-105)
--- NOTE | 2021-04-06 12:16 | P.PNIM_ITS ---
Progress Note: A&P Assessment and Plan (1) Acute kidney injury: Code(s): N17.9 - Acute kidney failure, unspecified Status: Acute Assessment and Plan: * BUN and creatinine elevated at 51/3.50 upon admission, trend BUN CR * BUN/CR are better today 47/3.30, GFR still very low at 13 * FENa 2.2% upon admission * Renal ultrasound showed normal kidney with no hydronephrosis (04/02/21) * BNP was 7660 on admission * Nephrology consulted thank you for your recommendations * Urine serology pending from 04/03/21 * ECHO showed EF 55-60% severe aortic stenosis severe pulmonary hypertension with pressure of 69 * Renal flow scan: Symmetric kidney function, delayed renal contrast uptake and delayed renal contrast clearance, consistent with decreased renal function. 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 daily because of CANDICE * echo EF of 55-60 severe aortic stenosis with pulmonary pressure of 69 * Edema worsening at 3+ * Weston smith on * low-sodium diet * nephrology consulted thank you for your recommendations (3) HTN (hypertension): Code(s): I10 - Essential (primary) hypertension Status: Chronic Assessment and Plan: * Current blood pressure 140/50 * Continue home atenolol 50mg PO daily * Trend blood pressure * adjust medications as needed * Nifedipine 30mg PO once night of 04/03/21 for hypertension, will continue at this time (4) Nausea & vomiting: Code(s): R11.2 - Nausea with vomiting, unspecified Status: Acute Assessment and Plan: * Three episodes of vomiting reported 04/02/21, One episode on 04/03/21 * Zofran 4 mg IV push q.6 p.r.n. * KUB normal gas bowel pattern * Last BM weds, add senna and Colace * advance diet as tolerated (5) Diabetes: Code(s): E11.9 - Type 2 diabetes mellitus without complications Status: Chronic Assessment and Plan: * Glucose is 105 * Hold home glimepiride and metformin * initiate sliding scale * hypoglycemia protocol * trend glucose * labs in the am * adjust medications as needed (6) Arthritis: Code(s): M19.90 - Unspecified osteoarthritis, unspecified site Status: Acute Assessment and Plan: * Hold home meloxicam for now * Resume when renal function is better if able * Will add lidocaine patch for knees (7) Glaucoma: Code(s): H40.9 - Unspecified glaucoma Status: Acute Assessment and Plan: * Continue timolol 1gtt BID, latanoprost 1gtt BID per eye (8) HLD (hyperlipidemia): Code(s): E78.5 - Hyperlipidemia, unspecified Status: Acute Assessment and Plan: * Hold home atorvastatin for now * Continue when able (9) Anemia: Code(s): D64.9 - Anemia, unspecified Status: Acute Assessment and Plan: * Remains stable * H/H stable at 8.1/24.8 * MCV 99.7 * Trend H/H * Anemia labs: Iron 68, TIBC is 231, saturation 29, ferritin 115, B12 424, folate 7.4 * labs in a.m. * transfuse if below 7
--- NOTE | 2021-04-06 12:16 | PM.IMPN ---
Progress Note: A&P Assessment and Plan (1) Acute kidney injury: Code(s): N17.9 - Acute kidney failure, unspecified Status: Acute Assessment and Plan: BUN and creatinine elevated at 51/3.50 upon admission, trend BUN CR BUN/CR are better today 47/3.30, GFR still very low at 13 FENa 2.2% upon admission Renal ultrasound showed normal kidney with no hydronephrosis (04/02/21) BNP was 7660 on admission Nephrology consulted thank you for your recommendations Urine serology pending from 04/03/21 ECHO showed EF 55-60% severe aortic stenosis severe pulmonary hypertension with pressure of 69 Renal flow scan: Symmetric kidney function, delayed renal contrast uptake and delayed renal contrast clearance, consistent with decreased renal function. 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 daily because of CANDICE echo EF of 55-60 severe aortic stenosis with pulmonary pressure of 69 Edema worsening at 3+ Weston hose on low-sodium diet nephrology consulted thank you for your recommendations (3) HTN (hypertension): Code(s): I10 - Essential (primary) hypertension Status: Chronic Assessment and Plan: Current blood pressure 140/50 Continue home atenolol 50mg PO daily Trend blood pressure adjust medications as needed Nifedipine 30mg PO once night of 04/03/21 for hypertension, will continue at this time (4) Nausea & vomiting: Code(s): R11.2 - Nausea with vomiting, unspecified Status: Acute Assessment and Plan: Three episodes of vomiting reported 04/02/21, One episode on 04/03/21 Zofran 4 mg IV push q.6 p.r.n. KUB normal gas bowel pattern Last BM weds, add senna and Colace advance diet as tolerated (5) Diabetes: Code(s): E11.9 - Type 2 diabetes mellitus without complications Status: Chronic Assessment and Plan: Glucose is 105 Hold home glimepiride and metformin initiate sliding scale hypoglycemia protocol trend glucose labs in the am adjust medications as needed (6) Arthritis: Code(s): M19.90 - Unspecified osteoarthritis, unspecified site Status: Acute Assessment and Plan: Hold home meloxicam for now Resume when renal function is better if able Will add lidocaine patch for knees (7) Glaucoma: Code(s): H40.9 - Unspecified glaucoma Status: Acute Assessment and Plan: Continue timolol 1gtt BID, latanoprost 1gtt BID per eye (8) HLD (hyperlipidemia): Code(s): E78.5 - Hyperlipidemia, unspecified Status: Acute Assessment and Plan: Hold home atorvastatin for now Continue when able (9) Anemia: Code(s): D64.9 - Anemia, unspecified Status: Acute Assessment and Plan: Remains stable H/H stable at 8.1/24.8 MCV 99.7 Trend H/H Anemia labs: Iron 68, TIBC is 231, saturation 29, ferritin 115, B12 424, folate 7.4 labs in a.m. transfuse if below 7 (10) Urinary tract infection: Code(s): N39.0 - Urinary tract infection, site not specified Status: Acute Assessment and Plan: UA showed yellow clear, Leukocyte esterase 1+, WBC 16-20, Bacteria 2+ Culture shows E.Coli Ceftriaxone 1gm IV daily started 04/05/21 Day 2 Will need coverage for the full seven days considering her renal function Subjective Date/time seen: 04/06/21 11:15 Interval history: Velma is an 80-year-old female who is here for acute renal failure. Patient said that she is okay today. She said I am up and alive. She has also
[2021-04-06 13:05] LABS: Complement Total CH50 >60 U/mL (31-60)
[2021-04-06 14:00] VITALS: BP 145/53; PULSE 60; RESP 12; TEMP 36.7; O2SAT 97
[2021-04-06] MEDS: MAGNESIUM SULF 2 GM/WATER 50ML 2 GM/50 ML BAG IVPB (14:23)
[2021-04-06] MEDS: LIDOCAINE 5% PATCH 2 PATCH TRANSDERM (14:25)
[2021-04-06] MEDS: DOCUSATE SODIUM 100 MG CAPSULE PO ×2 (14:27→21:34)
[2021-04-06] MEDS: SENNOSIDES 8.6 MG TABLET PO (17:18)
[2021-04-06 19:01] LABS: Glucose Point of Care 148 mg/dl (65-105)
[2021-04-06] MEDS: BUMETANIDE INJ 2.5 MG/10 ML VIAL 1.5 MG IV PUSH (19:38)
[2021-04-06 21:29] LABS: Anti Glomerular Basement Memb <1.0 AI (<1.0)
[2021-04-06] MEDS: LATANOPROST 0.005% OP SOLN 2.5 ML BTL 1 DROP EACH EYE (21:34)
[2021-04-06 21:50] LABS: Glucose Point of Care 166 mg/dl (65-105)
[2021-04-06 22:00] VITALS: BP 159/59; PULSE 62; RESP 16; TEMP 36.9; O2SAT 99
[2021-04-07 06:00] VITALS: BP 148/63; PULSE 69; RESP 16; TEMP 36.7; O2SAT 96
[2021-04-07 06:03] LABS: Osmolality, Urine 410 mOsm/kg (50-1200)
[2021-04-07 06:15] LABS: INR 1.1
[2021-04-07 06:16] LABS: Hematocrit 24.8 % (37.0-47.0); Hemoglobin 7.9 g/dL (12.0-15.0); Mean Corpuscular HGB Conc 31.9 g/dl (32-36); Mean Corpuscular Hemoglobin 31.9 pg (26-34); Mean Platelet Volume 10.1 fl (7.4-10.4); Platelet Count Result 215 k/mm3 (150-375); Red Blood Count 2.48 M/mm3 (4.2-5.4); Red Cell Distribution Width 12.6 % (11.5-14.5); White Blood Count 6.9 K/mm3 (4.5-10.0)
[2021-04-07 06:20] LABS: Alanine Aminotransferase 13 U/L (4-35); Albumin Level 3.1 g/dL (3.5-5.1); Alkaline Phosphatase 63 U/L (38-126); Anion Gap 5 mmol/L (8-16); Aspartate Amino Transferase 15 U/L (14-36); Bilirubin,Total 0.3 mg/dL (0.2-1.3); Blood Urea Nitrogen 51 mg/dL (7-17); Calcium 8.8 mg/dL (8.4-10.2); Carbon Dioxide 25 mmol/L (22-30); Chloride 103 mmol/L (98-107); Estimated CRCL calculation 14 ml/min; Estimated Glomerular Filt Rate 13; Glucose 112 mg/dL (65-110); Phosphorus 5.2 mg/dL (2.5-4.5); Potassium 4.1 mmol/L (3.4-5.0); Sodium 133 mmol/L (137-145)
[2021-04-07 06:23] LABS: Kappa\\Lambda Light Chains 2.83 (0.26-1.65); Lambda Light Chain 42.3 mg/L (5.7-26.3)
[2021-04-07 06:26] LABS: Albumin 3.1 g/dL (3.8-4.8); Alpha 1 Globulin 0.3 g/dL (0.2-0.3); Alpha 2 Globulin 0.8 g/dL (0.5-0.9); Beta 1 Globulin 0.3 g/dL (0.4-0.6); Gamma Globulin 0.9 g/dL (0.8-1.7); Protein, Total 5.7 g/dL (6.1-8.1)
[2021-04-07] MEDS: ONDANSETRON INJ 4 MG/2 ML VIAL IV PUSH (09:26)
[2021-04-07 09:28] VITALS: PULSE 69
[2021-04-07] MEDS: NIFEdipine 30 MG TAB.ER.24 PO (09:28)
[2021-04-07] MEDS: atenoloL 50 MG TABLET PO (09:28)
[2021-04-07] MEDS: CHOLECALCIFEROL 1,000 UNITS TABLET 5000 UNITS PO (09:28)
[2021-04-07] MEDS: SENNA/DOCUSATE SODIUM TABLET 1 TAB PO (09:28)
[2021-04-07] MEDS: DOCUSATE SODIUM 100 MG CAPSULE PO ×2 (09:28→20:27)
[2021-04-07] MEDS: TIMOLOL MALEATE 0.5% OP SOLN 5 ML BOTTLE 1 DROP EACH EYE ×2 (09:29→20:27)
[2021-04-07] MEDS: ENOXAPARIN 30 MG/0.3 ML SYRINGE SUB-Q (09:32)
[2021-04-07] MEDS: LIDOCAINE 5% PATCH 2 PATCH TRANSDERM (09:32)
[2021-04-07 09:51] LABS: Glucose Point of Care 111 mg/dl (65-105)
--- NOTE | 2021-04-07 10:37 | P.PNNP_ITS ---
Progress Note: A&P Assessment and Plan (1) Acute kidney injury: Code(s): N17.9 - Acute kidney failure, unspecified Status: Acute Assessment and Plan: * reported near normal kidney function (GFR ~ 58cc/min) about a year ago * etiology not clear * renal ultrasound without obstruction, good size, no echogenicity. * urine electrolytes non-prerenal (but she was on diuretic therapy) * Echo results noted -- severe aortic stenosis +/- pulmonary HTN playing a role? * serological evaluation underway - most test still pending * planning renal biopsy for a definitive diagnosis . She was taking aspirin, however and got her last dose on Wednesday. Will reschedule for Wednesday , since it was only baby aspirin.. * renal scan noted -- symmetric blood flow * she is getting antibiotics. * Creatinine is stable. * She has mild signs of uremia With her nausea. She may end up needing dialysis if things do not get better soon. (2) CHF (congestive heart failure): Code(s): I50.9 - Heart failure, unspecified Status: Acute Assessment and Plan: * as evidence by imaging and exam on presentation * on diuretics as an outpatient * Echo results noted * repeat CXR noted * she is not on oxygen though and does not have significant shortness of breath. * will give another dose of bumex today And see where we are tomorrow (3) Urinary tract infection: Code(s): N39.0 - Urinary tract infection, site not specified Status: Acute Assessment and Plan: * urine culture with E. coli * on antibiotics (4) HTN (hypertension): Code(s): I10 - Essential (primary) hypertension Status: Chronic Assessment and Plan: * reasonable control at this time * follow trend of hemodynamics (5) Anemia: Code(s): D64.9 - Anemia, unspecified Status: Acute Assessment and Plan: * related to kidney dysfunction? * follow trend of H/H * consider Epogen (6) Diabetes: Code(s): E11.9 - Type 2 diabetes mellitus without complications Status: Chronic Assessment and Plan: * follow accuhecks * glycemic control Will continue to follow. Subjective Date/time seen: 04/07/21 10:37 Interval history: Velma had some nausea this morning. No chest pain or shortness of breath. Exam Narrative: General: WD/WN female in NAD Heart: normal S1 and S2; no rub Lungs: decreased at bases Abdomen: soft, nontender, nondistended, positive bowel sounds Extremities: 2 - 3+ edema Skin: No rash Objective Data Vital Signs Vital Signs: Vital Signs - 24 hr 04/06/21 14:00 04/06/21 22:00 04/07/21 06:00 Temperature 36.7 C 36.9 C 36.7 C Pulse Rate 60 62 69 Respiratory Rate 12 16 16 Blood Pressure 145/53 H 159/59 H 148/63 H Pulse Oximetry 97 99 96 04/07/21 09:28 Temperature Pulse Rate 69 Respiratory Rate Blood Pressure Pulse Oximetry Intake/Output Intake/Output: Intake & Output 04/04/21 04/05/21 04/06/21 04/07/21 23:59 23:59 23:59 23:59 Intake Total 1740 1300 1120 300 Output Total 1700 2385 462 2347 Balance 40 300 470 -1100 Meds/Results Medications: Active Medications Generic Name Dose Route Start Last Admin Trade
--- NOTE | 2021-04-07 10:37 | PM.PNNEP ---
Progress Note: A&P Assessment and Plan (1) Acute kidney injury: Code(s): N17.9 - Acute kidney failure, unspecified Status: Acute Assessment and Plan: reported near normal kidney function (GFR ~ 58cc/min) about a year ago etiology not clear renal ultrasound without obstruction, good size, no echogenicity. urine electrolytes non-prerenal (but she was on diuretic therapy) Echo results noted -- severe aortic stenosis +/- pulmonary HTN playing a role? serological evaluation underway - most test still pending planning renal biopsy for a definitive diagnosis . She was taking aspirin, however and got her last dose on Wednesday. Will reschedule for Wednesday , since it was only baby aspirin.. renal scan noted -- symmetric blood flow she is getting antibiotics. Creatinine is stable. She has mild signs of uremia With her nausea. She may end up needing dialysis if things do not get better soon. (2) CHF (congestive heart failure): Code(s): I50.9 - Heart failure, unspecified Status: Acute Assessment and Plan: as evidence by imaging and exam on presentation on diuretics as an outpatient Echo results noted repeat CXR noted she is not on oxygen though and does not have significant shortness of breath. will give another dose of bumex today And see where we are tomorrow (3) Urinary tract infection: Code(s): N39.0 - Urinary tract infection, site not specified Status: Acute Assessment and Plan: urine culture with E. coli on antibiotics (4) HTN (hypertension): Code(s): I10 - Essential (primary) hypertension Status: Chronic Assessment and Plan: reasonable control at this time follow trend of hemodynamics (5) Anemia: Code(s): D64.9 - Anemia, unspecified Status: Acute Assessment and Plan: related to kidney dysfunction? follow trend of H/H consider Epogen (6) Diabetes: Code(s): E11.9 - Type 2 diabetes mellitus without complications Status: Chronic Assessment and Plan: follow accuhecks glycemic control Will continue to follow. Subjective Date/time seen: 04/07/21 10:37 Interval history: Velma had some nausea this morning. No chest pain or shortness of breath. Exam Narrative: General: WD/WN female in NAD Heart: normal S1 and S2; no rub Lungs: decreased at bases Abdomen: soft, nontender, nondistended, positive bowel sounds Extremities: 2 - 3+ edema Skin: No rash Objective Data Vital Signs Vital Signs: Vital Signs - 24 hr 04/06/21 14:00 04/06/21 22:00 04/07/21 06:00 Temperature 36.7 C 36.9 C 36.7 C Pulse Rate 60 62 69 Respiratory Rate 12 16 16 Blood Pressure 145/53 H 159/59 H 148/63 H Pulse Oximetry 97 99 96 04/07/21 09:28 Temperature Pulse Rate 69 Respiratory Rate Blood Pressure Pulse Oximetry Intake/Output Intake/Output: Intake & Output 04/04/21 04/05/21 04/06/21 04/07/21 23:59 23:59 23:59 23:59 Intake Total 1740 1300 1120 300 Output Total 1700 7822 121 9572 Balance 40 300 470 -1100 Meds/Results Medications: Active Medications Generic Name Dose Route Start Last Admin Trade Name Freq PRN Reason Stop Dose Admin Aspirin 81 mg 04/02/21 18:00 04/05/21 17:02 Aspirin 81 Mg Chewable Tablet PO 81 mg QPM PAT Administration Atenolol 50 mg 04/02/21 11:10 04/07/21 09:28 Atenolol 50 Mg Tablet PO 50 mg DAILY PAT Administration Dextrose 12.5 gm 04/03/21 11:10 Dextrose 50% 25 Gm/50 Ml Syringe IV PUSH PRN PRN Hypoglycemia Protocol Docusate Sodium 100 mg 04/05/21 21:00 04/07/21 09:28 Docusate Sodium 100 Mg Capsule PO 100 mg Q12HR PAT Administration Enoxaparin Sodium 30 mg 04/03/21 09:00 04/07/21 09:32 Enoxaparin 30 Mg/0.3 Ml Syringe SUB-Q 30 mg DAILY PAT Administration Glucagon 1 mg 04/03/21 11:10 Glucagon For Inj 1 Mg Vial IM PRN PRN Hypoglycemia
[2021-04-07 12:38] LABS: Glucose Point of Care 204 mg/dl (65-105)
[2021-04-07] MEDS: INSULIN ASPART (*BKC) 100 UNITS/ML SUB-Q (12:42)
[2021-04-07 13:55] VITALS: BP 126/51; PULSE 58; RESP 18; TEMP 36.8; O2SAT 98
--- NOTE | 2021-04-07 16:45 | P.PNIM_ITS ---
Progress Note: A&P Assessment and Plan (1) Acute kidney injury: Code(s): N17.9 - Acute kidney failure, unspecified Status: Acute Assessment and Plan: * BUN and creatinine elevated at 55/3.80 upon admission, trend BUN CR * BUN/CR are better today 51/3.50, GFR still very low at 13 * FENa 2.2% upon admission * Renal ultrasound showed normal kidney with no hydronephrosis (04/02/21) * BNP was 7660 on admission, Urine serology resulted 04/03/21 * Nephrology consulted thank you for your recommendations * ECHO showed EF 55-60% severe aortic stenosis severe pulmonary hypertension with pressure of 69 * Renal flow scan: Symmetric kidney function, delayed renal contrast uptake and delayed renal contrast clearance, consistent with decreased renal function. 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 daily because of CANDICE * echo EF of 55-60 severe aortic stenosis with pulmonary pressure of 69 * Edema worsening at 3+ * Weston smith on * low-sodium diet * nephrology consulted thank you for your recommendations (3) HTN (hypertension): Code(s): I10 - Essential (primary) hypertension Status: Chronic Assessment and Plan: * Current blood pressure 126/51 * Continue home atenolol 50mg PO daily * Trend blood pressure * adjust medications as needed * Nifedipine 30mg PO once night of 04/03/21 for hypertension, will continue at this time (4) Nausea & vomiting: Code(s): R11.2 - Nausea with vomiting, unspecified Status: Acute Assessment and Plan: * Three episodes of vomiting reported 04/02/21, One episode on 04/03/21 * Zofran 4 mg IV push q.6 p.r.n. * KUB normal gas bowel pattern * Last BM last , add senna and Colace plus a suppository * advance diet as tolerated (5) Diabetes: Code(s): E11.9 - Type 2 diabetes mellitus without complications Status: Chronic Assessment and Plan: * Glucose is 112 * Hold home glimepiride and metformin * initiate sliding scale * hypoglycemia protocol * trend glucose * labs in the am * adjust medications as needed (6) Arthritis: Code(s): M19.90 - Unspecified osteoarthritis, unspecified site Status: Acute Assessment and Plan: * Hold home meloxicam for now * Resume when renal function is better if able * lidocaine patch for knees (7) Glaucoma: Code(s): H40.9 - Unspecified glaucoma Status: Acute Assessment and Plan: * Continue timolol 1gtt BID, latanoprost 1gtt BID per eye (8) HLD (hyperlipidemia): Code(s): E78.5 - Hyperlipidemia, unspecified Status: Acute Assessment and Plan: * Hold home atorvastatin for now * Continue when able (9) Anemia: Code(s): D64.9 - Anemia, unspecified Status: Acute Assessment and Plan: * Remains stable * H/H stable at 7.9/24.8 * Trend H/H * Anemia labs: Iron 68, TIBC is 231, saturation 29, ferritin 115, B12 424, folate 7.4 * transfuse if below 7
--- NOTE | 2021-04-07 16:45 | PM.IMPN ---
Progress Note: A&P Assessment and Plan (1) Acute kidney injury: Code(s): N17.9 - Acute kidney failure, unspecified Status: Acute Assessment and Plan: BUN and creatinine elevated at 55/3.80 upon admission, trend BUN CR BUN/CR are better today 51/3.50, GFR still very low at 13 FENa 2.2% upon admission Renal ultrasound showed normal kidney with no hydronephrosis (04/02/21) BNP was 7660 on admission, Urine serology resulted 04/03/21 Nephrology consulted thank you for your recommendations ECHO showed EF 55-60% severe aortic stenosis severe pulmonary hypertension with pressure of 69 Renal flow scan: Symmetric kidney function, delayed renal contrast uptake and delayed renal contrast clearance, consistent with decreased renal function. 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 daily because of CANDICE echo EF of 55-60 severe aortic stenosis with pulmonary pressure of 69 Edema worsening at 3+ Weston hose on low-sodium diet nephrology consulted thank you for your recommendations (3) HTN (hypertension): Code(s): I10 - Essential (primary) hypertension Status: Chronic Assessment and Plan: Current blood pressure 126/51 Continue home atenolol 50mg PO daily Trend blood pressure adjust medications as needed Nifedipine 30mg PO once night of 04/03/21 for hypertension, will continue at this time (4) Nausea & vomiting: Code(s): R11.2 - Nausea with vomiting, unspecified Status: Acute Assessment and Plan: Three episodes of vomiting reported 04/02/21, One episode on 04/03/21 Zofran 4 mg IV push q.6 p.r.n. KUB normal gas bowel pattern Last BM last , add senna and Colace plus a suppository advance diet as tolerated (5) Diabetes: Code(s): E11.9 - Type 2 diabetes mellitus without complications Status: Chronic Assessment and Plan: Glucose is 112 Hold home glimepiride and metformin initiate sliding scale hypoglycemia protocol trend glucose labs in the am adjust medications as needed (6) Arthritis: Code(s): M19.90 - Unspecified osteoarthritis, unspecified site Status: Acute Assessment and Plan: Hold home meloxicam for now Resume when renal function is better if able lidocaine patch for knees (7) Glaucoma: Code(s): H40.9 - Unspecified glaucoma Status: Acute Assessment and Plan: Continue timolol 1gtt BID, latanoprost 1gtt BID per eye (8) HLD (hyperlipidemia): Code(s): E78.5 - Hyperlipidemia, unspecified Status: Acute Assessment and Plan: Hold home atorvastatin for now Continue when able (9) Anemia: Code(s): D64.9 - Anemia, unspecified Status: Acute Assessment and Plan: Remains stable H/H stable at 7.9/24.8 Trend H/H Anemia labs: Iron 68, TIBC is 231, saturation 29, ferritin 115, B12 424, folate 7.4 transfuse if below 7 (10) Urinary tract infection: Code(s): N39.0 - Urinary tract infection, site not specified Status: Acute Assessment and Plan: UA showed yellow clear, Leukocyte esterase 1+, WBC 16-20, Bacteria 2+ Culture shows E.Coli Ceftriaxone 1gm IV daily started 04/05/21 Day 3 Will need coverage for the full seven days considering her renal function Subjective Date/time seen: 04/07/21 15:45 Interval history: Patient is an 80 year old female here for CANDICE. Patient stated that she is doing ok today. She stated that she is disappointed that her biopsy was cancelled.
[2021-04-07 16:48] LABS: Glucose Point of Care 138 mg/dl (65-105)
[2021-04-07] MEDS: BISACODYL 10 MG SUPPOSITORY RECTAL (18:19)
[2021-04-07] MEDS: LATANOPROST 0.005% OP SOLN 2.5 ML BTL 1 DROP EACH EYE (20:28)
[2021-04-07 20:40] LABS: Glucose Point of Care 152 mg/dl (65-105)
[2021-04-07 22:00] VITALS: BP 149/69; PULSE 70; RESP 20; TEMP 36.6; O2SAT 96
[2021-04-08] MEDS: ONDANSETRON INJ 4 MG/2 ML VIAL IV PUSH (01:24)
[2021-04-08 05:42] LABS: Hematocrit 25.1 % (37.0-47.0); Hemoglobin 7.8 g/dL (12.0-15.0); Mean Corpuscular HGB Conc 31.1 g/dl (32-36); Mean Corpuscular Hemoglobin 31.6 pg (26-34); Mean Corpuscular Volume 101.6 fl (80-100); Platelet Count Result 229 k/mm3 (150-375); Red Blood Count 2.47 M/mm3 (4.2-5.4); Red Cell Distribution Width 12.7 % (11.5-14.5)
[2021-04-08 06:00] VITALS: BP 150/62; PULSE 59; RESP 20; TEMP 36.9; O2SAT 97
[2021-04-08 06:03] LABS: Alanine Aminotransferase 12 U/L (4-35); Albumin Level 3.1 g/dL (3.5-5.1); Alkaline Phosphatase 62 U/L (38-126); Anion Gap 10 mmol/L (8-16); Aspartate Amino Transferase 16 U/L (14-36); Bilirubin,Total 0.2 mg/dL (0.2-1.3); Blood Urea Nitrogen 51 mg/dL (7-17); Calcium 8.8 mg/dL (8.4-10.2); Carbon Dioxide 25 mmol/L (22-30); Chloride 98 mmol/L (98-107); Estimated CRCL calculation 14 ml/min; Estimated Glomerular Filt Rate 12; Glucose 125 mg/dL (65-110); Phosphorus 5.4 mg/dL (2.5-4.5); Potassium 4.3 mmol/L (3.4-5.0); Sodium 133 mmol/L (137-145)
--- NOTE | 2021-04-08 07:23 | P.PNNP_ITS ---
Progress Note: A&P Assessment and Plan (1) Acute kidney injury: Code(s): N17.9 - Acute kidney failure, unspecified Status: Acute Assessment and Plan: * reported near normal kidney function (GFR ~ 58cc/min) about a year ago * etiology not clear * renal ultrasound without obstruction, good size, no echogenicity. * urine electrolytes non-prerenal (but she was on diuretic therapy) * Echo results noted -- severe aortic stenosis +/- pulmonary HTN playing a role? * serology: Chula, Anca, complements are okay. Others are pending. * planning renal biopsy for a definitive diagnosis . She was taking aspirin, however and got her last dose on Wednesday. Will reschedule for . * renal scan noted -- symmetric blood flow * she is getting antibiotics. * Creatinine is stable. * Nausea is better. (2) CHF (congestive heart failure): Code(s): I50.9 - Heart failure, unspecified Status: Acute Assessment and Plan: * as evidence by imaging and exam on presentation * on diuretics as an outpatient * Echo results noted * repeat CXR noted * she is not on oxygen though and does not have significant shortness of breath. * Creatinine is relatively stable. Will give scheduled Bumetanide. (3) Urinary tract infection: Code(s): N39.0 - Urinary tract infection, site not specified Status: Acute Assessment and Plan: * urine culture with E. coli * on antibiotics (4) HTN (hypertension): Code(s): I10 - Essential (primary) hypertension Status: Chronic Assessment and Plan: * reasonable control at this time * follow trend of hemodynamics (5) Anemia: Code(s): D64.9 - Anemia, unspecified Status: Acute Assessment and Plan: * related to kidney dysfunction? * follow trend of H/H * consider Epogen (6) Diabetes: Code(s): E11.9 - Type 2 diabetes mellitus without complications Status: Chronic Assessment and Plan: * follow accuhecks * glycemic control Will continue to follow. Subjective Date/time seen: 04/08/21 07:23 Interval history: Patient feels okay. No more nausea this morning. She slept okay last night. She ate 3 meals yesterday. Exam Narrative: General: WD/WN female in NAD Heart: normal S1 and S2; no rub Lungs: decreased at bases Abdomen: soft, nontender, nondistended, positive bowel sounds Extremities: 2+ edema and no cyanosis Skin: No rash Or subcu nodules Objective Data Vital Signs Vital Signs: Vital Signs - 24 hr 04/07/21 09:28 04/07/21 13:55 04/07/21 22:00 Temperature 36.8 C 36.6 C Pulse Rate 69 58 L 70 Respiratory Rate 18 20 Blood Pressure 126/51 L 149/69 H Pulse Oximetry 98 96 Intake/Output Intake/Output: Intake & Output 04/05/21 04/06/21 04/07/21 04/08/21 23:59 23:59 23:59 23:59 Intake Total 1300 1120 1590 Output Total 2881 556 4040 Balance 300 470 -760 Meds/Results Medications: Active Medications Generic Name Dose Route Start Last Admin Trade Name Freq PRN Reason Stop Dose Admin Aspirin 81 mg 04/02/21 18:00 04/05/21 17:02 Aspirin 81 Mg Chewable Tablet PO 81 mg QPM PAT Administration Atenolol 50 mg 04/02/21 11:10 04/07/21 09:28 Atenolol 50
--- NOTE | 2021-04-08 07:23 | PM.PNNEP ---
Progress Note: A&P Assessment and Plan (1) Acute kidney injury: Code(s): N17.9 - Acute kidney failure, unspecified Status: Acute Assessment and Plan: reported near normal kidney function (GFR ~ 58cc/min) about a year ago etiology not clear renal ultrasound without obstruction, good size, no echogenicity. urine electrolytes non-prerenal (but she was on diuretic therapy) Echo results noted -- severe aortic stenosis +/- pulmonary HTN playing a role? serology: Ch[place], Anca, complements are okay. Others are pending. planning renal biopsy for a definitive diagnosis . She was taking aspirin, however and got her last dose on Wednesday. Will reschedule for . renal scan noted -- symmetric blood flow she is getting antibiotics. Creatinine is stable. Nausea is better. (2) CHF (congestive heart failure): Code(s): I50.9 - Heart failure, unspecified Status: Acute Assessment and Plan: as evidence by imaging and exam on presentation on diuretics as an outpatient Echo results noted repeat CXR noted she is not on oxygen though and does not have significant shortness of breath. Creatinine is relatively stable. Will give scheduled Bumetanide. (3) Urinary tract infection: Code(s): N39.0 - Urinary tract infection, site not specified Status: Acute Assessment and Plan: urine culture with E. coli on antibiotics (4) HTN (hypertension): Code(s): I10 - Essential (primary) hypertension Status: Chronic Assessment and Plan: reasonable control at this time follow trend of hemodynamics (5) Anemia: Code(s): D64.9 - Anemia, unspecified Status: Acute Assessment and Plan: related to kidney dysfunction? follow trend of H/H consider Epogen (6) Diabetes: Code(s): E11.9 - Type 2 diabetes mellitus without complications Status: Chronic Assessment and Plan: follow accuhecks glycemic control Will continue to follow. Subjective Date/time seen: 04/08/21 07:23 Interval history: Patient feels okay. No more nausea this morning. She slept okay last night. She ate 3 meals yesterday. Exam Narrative: General: WD/WN female in NAD Heart: normal S1 and S2; no rub Lungs: decreased at bases Abdomen: soft, nontender, nondistended, positive bowel sounds Extremities: 2+ edema and no cyanosis Skin: No rash Or subcu nodules Objective Data Vital Signs Vital Signs: Vital Signs - 24 hr 04/07/21 09:28 04/07/21 13:55 04/07/21 22:00 Temperature 36.8 C 36.6 C Pulse Rate 69 58 L 70 Respiratory Rate 18 20 Blood Pressure 126/51 L 149/69 H Pulse Oximetry 98 96 Intake/Output Intake/Output: Intake & Output 04/05/21 04/06/21 04/07/21 04/08/21 23:59 23:59 23:59 23:59 Intake Total 1300 1120 1590 Output Total 2268 188 8792 Balance 300 470 -760 Meds/Results Medications: Active Medications Generic Name Dose Route Start Last Admin Trade Name Freq PRN Reason Stop Dose Admin Aspirin 81 mg 04/02/21 18:00 04/05/21 17:02 Aspirin 81 Mg Chewable Tablet PO 81 mg QPM PAT Administration Atenolol 50 mg 04/02/21 11:10 04/07/21 09:28 Atenolol 50 Mg Tablet PO 50 mg DAILY PAT Administration Bisacodyl 10 mg 04/08/21 09:00 Bisacodyl 10 Mg Suppository [facility] Dextrose 12.5 gm 04/03/21 11:10 Dextrose 50% 25 Gm/50 Ml Syringe IV PUSH PRN PRN Hypoglycemia Protocol Docusate Sodium 100 mg 04/05/21 21:00 04/07/21 20:27 Docusate Sodium 100 Mg Capsule PO 100 mg Q12HR PAT Administration Enoxaparin Sodium 30 mg 04/03/21 09:00 04/07/21 09:32 Enoxaparin 30 Mg/0.3 Ml Syringe SUB-Q 30 mg DAILY PAT Administration Glucagon 1 mg 04/03/21 11:10 Glucagon For Inj 1 Mg Vial IM PRN PRN Hypoglycemia Protocol Glucose 15 gm 04/03/21 11:10 Glucose Oral Gel 15 Gm Of Glucse In 37.5 Gm Tub
[2021-04-08 07:59] LABS: Glucose Point of Care 112 mg/dl (65-105)
[2021-04-08] MEDS: TIMOLOL MALEATE 0.5% OP SOLN 5 ML BOTTLE 1 DROP EACH EYE ×2 (08:48→21:14)
[2021-04-08 08:49] VITALS: PULSE 60
[2021-04-08] MEDS: DOCUSATE SODIUM 100 MG CAPSULE PO ×2 (08:49→21:13)
[2021-04-08] MEDS: NIFEdipine 30 MG TAB.ER.24 PO (08:49)
[2021-04-08] MEDS: atenoloL 50 MG TABLET PO (08:49)
[2021-04-08] MEDS: BUMETANIDE 1 MG TABLET PO ×2 (08:49→16:33)
[2021-04-08] MEDS: SENNA/DOCUSATE SODIUM TABLET 1 TAB PO (08:49)
[2021-04-08] MEDS: CHOLECALCIFEROL 1,000 UNITS TABLET 5000 UNITS PO (08:50)
[2021-04-08] MEDS: ENOXAPARIN 30 MG/0.3 ML SYRINGE SUB-Q (08:50)
[2021-04-08] MEDS: LIDOCAINE 5% PATCH 2 PATCH TRANSDERM (08:51)
--- NOTE | 2021-04-08 09:44 | PM.CNCAR ---
Assessment and Plan Assessment and plan (1) Severe aortic stenosis: Code(s): I35.0 - Nonrheumatic aortic (valve) stenosis Status: Acute Assessment and Plan: 80-year-old female with history of hypertension, CHF with preserved ejection fraction, type 2 diabetes mellitus, CKD, arthritis. Patient admitted to the hospital with worsening renal function. Was found to have severe aortic stenosis on the echocardiogram with preserved LV systolic function , and grade 2 diastolic dysfunction. Patient has limited baseline mobility, uses walker for ambulation, and it is difficult to ascertain her baseline functional capacity. She is currently undergoing evaluation for acute kidney injury. I spoke with Dr. mcintosh from Nephrology over the phone. At this time, plan is to proceed with kidney biopsy to evaluate for any reversible causes of renal insufficiency. Patient has severe aortic stenosis with multiple comorbidities, and will likely need aortic valve replacement (TAVR) in near future. However, workup for TAVR will include cardiac catheterization and CTA chest , which would likely worsen patient's renal function . At this time, plan is to monitor patient's renal function, and plan on additional cardiac workup as soon as feasible from nephrology standpoint. I spoke with patient about her clinical condition and recommendations. She verbalized understanding. (2) Acute on chronic diastolic CHF (congestive heart failure): Code(s): I50.33 - Acute on chronic diastolic (congestive) heart failure Status: Acute Assessment and Plan: patient is currently on bumetanide which is being managed by Nephrology. Monitor volume status, electrolytes and renal function. Avoid aggressive diuresis. (3) Acute kidney injury: Code(s): N17.9 - Acute kidney failure, unspecified Status: Acute Assessment and Plan: Management as per Nephrology. History of Present Illness History of Present Illness Consult date/time: 04/08/21 09:44 DATE OF CONSULT: 04/08/2021 REASON FOR CONSULT: CHF, severe REQUESTING PHYSICIAN:Yin Rivera PA-C CHIEF COMPLAINT: HPI: 80-year-old female with history of hypertension, CHF with preserved ejection fraction, type 2 diabetes mellitus, CKD, arthritis. Patient presented to [facility] on 04/02[facility]2021 after she was found to have worsening renal function on her labs. During hospitalization, she had echocardiogram done on 04/02/2021 which reportedly showed moderate LVH, normal LVEF, grade 2 diastolic dysfunction, severe aortic stenosis with Vmax 4.38 m/sec, mean gradient 55 mmHg, JAY 0.7 cm2, severe pulmonary hypertension with RVSP 69 mmHg. Cardiology was consulted for management of aortic stenosis. Her current chest x-ray shows cardiomegaly mildly worsened pulmonary edema, small pleural effusions, bibasilar airspace opacities, consistent with atelectasis versus pneumonia. Patient is currently undergoing evaluation for renal insufficiency, and is scheduled to undergo renal biopsy to evaluate for any reversible cause of renal insufficiency. As the guards to her cardiac condition, patient gives longstanding history of heart murmur but does not recall any additional workup. At baseline, she uses walker for ambulation at home. She states that she has been using walker for about 2 years due to history of falls and unsteady gait. She denies chest pain, dyspnea on exertion for her limited activity. No palpitation, dizziness or syncope. She does report chronic bilateral lower extremity swelling, and has been using compression stockings. Reason For Visit: Acute kidney injury, anemia Review of Systems Review of Systems: General: Positive for fatigue Psychological: Negative for anxiety, depression Ophthalmic: negative for loss of vision ENT: Negative for epistaxis, headaches Allergy and immunology: Negative for hives, nasal congestion Hematologic and lymphatic: Negative for overt
[2021-04-08 12:06] LABS: Glucose Point of Care 142 mg/dl (65-105)
[2021-04-08] MEDS: EPOETIN ALFA-EPBX 10,000 UNITS/ML VIAL 10000 UNITS SUB-Q (13:16)
[2021-04-08 14:38] VITALS: BP 166/55; PULSE 58; RESP 24; TEMP 35.8; O2SAT 97
--- NOTE | 2021-04-08 16:06 | P.PNIM_ITS ---
Progress Note: A&P Assessment and Plan (1) Acute kidney injury: Code(s): N17.9 - Acute kidney failure, unspecified Status: Acute Assessment and Plan: Patient is an 80-year-old woman with a history of congestive heart failure on diuretics, hypertension, diabetes, who presented to the emergency room by her primary care provider for elevated kidney function. Initial labs showed she was afebrile, non tachycardic, elevated blood pressure to 181/68, normal oxygenation and respiratory rate on room air. Initial labs showed normocytic anemia with a hemoglobin of 8.9, hematocrit 28%. Normal white blood cell count and differential. Creatinine elevated at 3.8, BUN 55, GFR 11. Normal LFTs and electrolytes. Normal vitamin B12, folic acid levels, iron panel. Chest x-ray showed mild pulmonary edema and small right pleural effusion, cardiomegaly. The patient was admitted into the hospital with acute CHF exacerbation and acute on chronic renal disease. * BUN/CR are not improving with 7 days of hospitalization, Cr 3.6, BUN 51. * Renal ultrasound showed normal kidney with no hydronephrosis (04/02/21) * Renal flow scan: Symmetric kidney function, delayed renal contrast uptake and delayed renal contrast clearance, consistent with decreased renal function. (04/03/21) * Nephrology consulted and etiology of acute kidney injury is unclear, urine electrolytes suggesting non pre renal, concerned about echocardiogram showing severe and pulmonary hypertension possibly playing a role. Plan for renal biopsy on for further definitive diagnosis. Have to wait a few days while aspirin is on hold for biopsy. Continue monitoring renal function, electroytes and appreciate Nephrology consultation. (2) CHF (congestive heart failure): Code(s): I50.9 - Heart failure, unspecified Status: Acute Assessment and Plan: Acute on chronic systolic and diastolic CHF exacerbation * Chest x-ray showed mild pulmonary edema and cardiomegaly (04/01/21), 04/04/21 worsening pulmonary edema * BNP 7660 upon admission * Bumex has been started 1 mg PO BID this morning by Nephrology given CHF exacerbation even though having CANDICE. * Echo showing Left ventricular systolic function is normal, estimated at 55- 60%, with severe aortic stenosis with pulmonary pressure of 69. * Concerned Severe is causing some issue with CHF and CANDICE. Cardiology was consulted who recommends the patient having further work up for TAVR to be placed which includes CTA Chest and Cardiac Catheterization * Weston Hose in place at this time, no real pitting edema at this time. * low-sodium diet * Cardiology recommends no aggressive diuresis given severe Continue monitor volume status, electrolytes and renal function. Avoid aggressive diuresis. (3) HTN (hypertension): Code(s): I10 - Essential (primary) hypertension Status: Chronic Assessment and Plan: * Current blood pressure 166/55 * Continue home atenolol 50mg PO daily * Trend blood pressure * adjust medications as needed * Nifedipine 30mg PO once night of 04/03/21 for hypertension, will continue at this time (4) Nausea & vomiting: Code(s): R11.2 - Nausea with vomiting, unspecified Status: Acute Assessment and Plan: * Three episodes of vomiting reported 04/02/21, One episode on 04/03/21 * Zofran 4 mg IV push q.6 p.r.n. * KUB normal gas bowel pattern * Last BM last , add senna and Colace plus a suppository * advance diet as tolerated (5) Diabetes: Code(s): E11.9 -
--- NOTE | 2021-04-08 16:06 | PM.IMPN ---
Progress Note: A&P Assessment and Plan (1) Acute kidney injury: Code(s): N17.9 - Acute kidney failure, unspecified Status: Acute Assessment and Plan: Patient is an 80-year-old woman with a history of congestive heart failure on diuretics, hypertension, diabetes, who presented to the emergency room by her primary care provider for elevated kidney function. Initial labs showed she was afebrile, non tachycardic, elevated blood pressure to 181/68, normal oxygenation and respiratory rate on room air. Initial labs showed normocytic anemia with a hemoglobin of 8.9, hematocrit 28%. Normal white blood cell count and differential. Creatinine elevated at 3.8, BUN 55, GFR 11. Normal LFTs and electrolytes. Normal vitamin B12, folic acid levels, iron panel. Chest x-ray showed mild pulmonary edema and small right pleural effusion, cardiomegaly. The patient was admitted into the hospital with acute CHF exacerbation and acute on chronic renal disease. BUN/CR are not improving with 7 days of hospitalization, Cr 3.6, BUN 51. Renal ultrasound showed normal kidney with no hydronephrosis (04/02/21) Renal flow scan: Symmetric kidney function, delayed renal contrast uptake and delayed renal contrast clearance, consistent with decreased renal function. (04/03/21) Nephrology consulted and etiology of acute kidney injury is unclear, urine electrolytes suggesting non pre renal, concerned about echocardiogram showing severe and pulmonary hypertension possibly playing a role. Plan for renal biopsy on for further definitive diagnosis. Have to wait a few days while aspirin is on hold for biopsy. Continue monitoring renal function, electroytes and appreciate Nephrology consultation. (2) CHF (congestive heart failure): Code(s): I50.9 - Heart failure, unspecified Status: Acute Assessment and Plan: Acute on chronic systolic and diastolic CHF exacerbation Chest x-ray showed mild pulmonary edema and cardiomegaly (04/01/21), 04/04/21 worsening pulmonary edema BNP 7660 upon admission Bumex has been started 1 mg PO BID this morning by Nephrology given CHF exacerbation even though having CANDICE. Echo showing Left ventricular systolic function is normal, estimated at 55-60%, with severe aortic stenosis with pulmonary pressure of 69. Concerned Severe is causing some issue with CHF and CANDICE. Cardiology was consulted who recommends the patient having further work up for TAVR to be placed which includes CTA Chest and Cardiac Catheterization Weston Hose in place at this time, no real pitting edema at this time. low-sodium diet Cardiology recommends no aggressive diuresis given severe Continue monitor volume status, electrolytes and renal function. Avoid aggressive diuresis. (3) HTN (hypertension): Code(s): I10 - Essential (primary) hypertension Status: Chronic Assessment and Plan: Current blood pressure 166/55 Continue home atenolol 50mg PO daily Trend blood pressure adjust medications as needed Nifedipine 30mg PO once night of 04/03/21 for hypertension, will continue at this time (4) Nausea & vomiting: Code(s): R11.2 - Nausea with vomiting, unspecified Status: Acute Assessment and Plan: Three episodes of vomiting reported 04/02/21, One episode on 04/03/21 Zofran 4 mg IV push q.6 p.r.n. KUB normal gas bowel pattern Last BM last , add senna and Colace plus a suppository advance diet as tolerated (5) Diabetes: Code(s): E11.9 - Type 2 diabetes mellitus without complications Status: Chronic Assessment and Plan: Glucose is 125 Hold home glimepiride and metformin initiate sliding scale hypoglycemia protocol trend glucose labs in the am adjust medications as needed (6) Arthritis: Code(s): M19.90 - Unspecified osteoarthritis, unspecified site Status: Acute Assessment and Plan:
[2021-04-08 18:02] LABS: Glucose Point of Care 140 mg/dl (65-105)
[2021-04-08 20:00] VITALS: PULSE 65; RESP 16; O2SAT 97
[2021-04-08 20:08] LABS: Creatinine, Random Urine 85 mg/dL (20-275); Total Protein/Creatinine Ratio 659 mg/g creat (21-161)
[2021-04-08] MEDS: LATANOPROST 0.005% OP SOLN 2.5 ML BTL 1 DROP EACH EYE (21:13)
[2021-04-08 21:57] LABS: Glucose Point of Care 161 mg/dl (65-105)
[2021-04-08 22:00] VITALS: BP 134/55; PULSE 65; RESP 16; TEMP 37.2; O2SAT 97
[2021-04-09] MEDS: ONDANSETRON INJ 4 MG/2 ML VIAL IV PUSH (04:43)
[2021-04-09 05:33] LABS: Hematocrit 24.9 % (37.0-47.0); Hemoglobin 7.8 g/dL (12.0-15.0)
[2021-04-09 06:00] VITALS: BP 128/55; PULSE 59; RESP 16; TEMP 36.4; O2SAT 95
[2021-04-09 06:21] LABS: Albumin Level 3.1 g/dL (3.5-5.1); Anion Gap 10 mmol/L (8-16); Blood Urea Nitrogen 52 mg/dL (7-17); Carbon Dioxide 26 mmol/L (22-30); Chloride 102 mmol/L (98-107); Estimated CRCL calculation 14 ml/min; Estimated Glomerular Filt Rate 12; Glucose 108 mg/dL (65-110); Phosphorus 5.5 mg/dL (2.5-4.5); Potassium 4.6 mmol/L (3.4-5.0); Sodium 138 mmol/L (137-145)
--- NOTE | 2021-04-09 07:19 | P.PNNP_ITS ---
Progress Note: A&P Assessment and Plan (1) Acute kidney injury: Code(s): N17.9 - Acute kidney failure, unspecified Status: Acute Assessment and Plan: * reported near normal kidney function (GFR ~ 58cc/min) about a year ago * etiology not clear * renal ultrasound without obstruction, good size, no echogenicity. * urine electrolytes non-prerenal (but she was on diuretic therapy) * Echo results noted -- severe aortic stenosis +/- pulmonary HTN playing a role? * serology: Chula, Anca, complements are okay. Others are pending. * will proceed with renal biopsy tomorrow. It will have been 5 days since stopping the baby aspirin. * I discussed again the procedure of the renal biopsy, the risks, benefits, and alternatives. She agrees to proceed. (2) CHF (congestive heart failure): Code(s): I50.9 - Heart failure, unspecified Status: Acute Assessment and Plan: * as evidence by imaging and exam on presentation * on diuretics as an outpatient * Echo results noted * repeat CXR noted * she is not on oxygen though and does not have significant shortness of breath. * Creatinine is relatively stable. Continue scheduled bumetanide (3) Urinary tract infection: Code(s): N39.0 - Urinary tract infection, site not specified Status: Acute Assessment and Plan: * urine culture with E. coli * on ceftriaxone (4) HTN (hypertension): Code(s): I10 - Essential (primary) hypertension Status: Chronic Assessment and Plan: * Systolic in the 120s. (5) Anemia: Code(s): D64.9 - Anemia, unspecified Status: Acute Assessment and Plan: * related to kidney dysfunction? * hemoglobin slowly trending down words. * she is now on Epogen. (6) Diabetes: Code(s): E11.9 - Type 2 diabetes mellitus without complications Status: Chronic Assessment and Plan: * follow accuhecks * glycemic control Will continue to follow. Subjective Date/time seen: 04/09/21 07:19 Interval history: Patient feels okay. She slept okay last night. She ate 3 meals yesterday. Exam Narrative: General: WD/WN female in NAD Heart: normal S1 and S2; no rub or gallop. 2/6 honking systolic murmur Lungs: decreased at bases Abdomen: soft, nontender, nondistended, positive bowel sounds Extremities: 2+ edema and no cyanosis Skin: No rash Or subcu nodules Objective Data Vital Signs Vital Signs: Vital Signs - 24 hr 04/08/21 08:49 04/08/21 14:38 04/08/21 20:00 Temperature 35.8 C L Pulse Rate 60 58 L 65 Respiratory Rate 24 H 16 Blood Pressure 166/55 H Pulse Oximetry 97 97 04/08/21 22:00 04/09/21 06:00 Temperature 37.2 C 36.4 C Pulse Rate 65 59 L Respiratory Rate 16 16 Blood Pressure 134/55 L 128/55 L Pulse Oximetry 97 95 Intake/Output Intake/Output: Intake & Output 04/06/21 04/07/21 04/08/21 04/09/21 23:59 23:59 23:59 23:59 Intake Total 1120 1590 1675 300 Output Total 650 2350 850 1050 Balance 470 -760 825 -750 Meds/Results Medications: Active Medications Generic Name Dose Route Start Last Admin Trade Name Adamsq PRN Reason Stop Dose Admin Aspirin 81 mg 04/02/21 18:00 04/05/21 1
--- NOTE | 2021-04-09 07:19 | PM.PNNEP ---
Progress Note: A&P Assessment and Plan (1) Acute kidney injury: Code(s): N17.9 - Acute kidney failure, unspecified Status: Acute Assessment and Plan: reported near normal kidney function (GFR ~ 58cc/min) about a year ago etiology not clear renal ultrasound without obstruction, good size, no echogenicity. urine electrolytes non-prerenal (but she was on diuretic therapy) Echo results noted -- severe aortic stenosis +/- pulmonary HTN playing a role? serology: [place], Anca, complements are okay. Others are pending. will proceed with renal biopsy tomorrow. It will have been 5 days since stopping the baby aspirin. I discussed again the procedure of the renal biopsy, the risks, benefits, and alternatives. She agrees to proceed. (2) CHF (congestive heart failure): Code(s): I50.9 - Heart failure, unspecified Status: Acute Assessment and Plan: as evidence by imaging and exam on presentation on diuretics as an outpatient Echo results noted repeat CXR noted she is not on oxygen though and does not have significant shortness of breath. Creatinine is relatively stable. Continue scheduled bumetanide (3) Urinary tract infection: Code(s): N39.0 - Urinary tract infection, site not specified Status: Acute Assessment and Plan: urine culture with E. coli on ceftriaxone (4) HTN (hypertension): Code(s): I10 - Essential (primary) hypertension Status: Chronic Assessment and Plan: Systolic in the 120s. (5) Anemia: Code(s): D64.9 - Anemia, unspecified Status: Acute Assessment and Plan: related to kidney dysfunction? hemoglobin slowly trending down words. she is now on Epogen. (6) Diabetes: Code(s): E11.9 - Type 2 diabetes mellitus without complications Status: Chronic Assessment and Plan: follow accuhecks glycemic control Will continue to follow. Subjective Date/time seen: 04/09/21 07:19 Interval history: Patient feels okay. She slept okay last night. She ate 3 meals yesterday. Exam Narrative: General: WD/WN female in NAD Heart: normal S1 and S2; no rub or gallop. 2/6 honking systolic murmur Lungs: decreased at bases Abdomen: soft, nontender, nondistended, positive bowel sounds Extremities: 2+ edema and no cyanosis Skin: No rash Or subcu nodules Objective Data Vital Signs Vital Signs: Vital Signs - 24 hr 04/08/21 08:49 04/08/21 14:38 04/08/21 20:00 Temperature 35.8 C L Pulse Rate 60 58 L 65 Respiratory Rate 24 H 16 Blood Pressure 166/55 H Pulse Oximetry 97 97 04/08/21 22:00 04/09/21 06:00 Temperature 37.2 C 36.4 C Pulse Rate 65 59 L Respiratory Rate 16 16 Blood Pressure 134/55 L 128/55 L Pulse Oximetry 97 95 Intake/Output Intake/Output: Intake & Output 04/06/21 04/07/21 04/08/21 04/09/21 23:59 23:59 23:59 23:59 Intake Total 1120 1590 1675 300 Output Total 650 2350 850 1050 Balance 470 760 825 -750 Meds/Results Medications: Active Medications Generic Name Dose Route Start Last Admin Trade Name Freq PRN Reason Stop Dose Admin Aspirin 81 mg 04/02/21 18:00 04/05/21 17:02 Aspirin 81 Mg Chewable Tablet PO 81 mg QPM PAT Administration Atenolol 50 mg 04/02/21 11:10 04/08/21 08:49 Atenolol 50 Mg Tablet PO 50 mg DAILY PAT Administration Bisacodyl 10 mg 04/08/21 09:00 04/08/21 08:50 Bisacodyl 10 Mg Suppository RECTAL Not Given QAM PAT Bumetanide 1 mg 04/08/21 09:00 04/08/21 16:33 Bumetanide 1 Mg Tablet PO 1 mg BID PAT Administration Dextrose 12.5 gm 04/03/21 11:10 Dextrose 50% 25 Gm/50 Ml Syringe IV PUSH PRN PRN Hypoglycemia Protocol Docusate Sodium 100 mg 04/05/21 21:00 04/08/21 21:13 Docusate Sodium 100 Mg Capsule PO 100 mg Q12HR PAT Administration Enoxaparin Sodium 30 mg 04/03/21 09:00 04/08/21 08:50 Enoxaparin 30 Mg/0.3 Ml Syr
[2021-04-09 08:11] LABS: Glucose Point of Care 108 mg/dl (65-105)
[2021-04-09] MEDS: BUMETANIDE 1 MG TABLET PO ×2 (08:40→18:10)
[2021-04-09] MEDS: NIFEdipine 30 MG TAB.ER.24 PO (08:40)
[2021-04-09] MEDS: SENNA/DOCUSATE SODIUM TABLET 1 TAB PO (08:40)
[2021-04-09] MEDS: DOCUSATE SODIUM 100 MG CAPSULE PO ×2 (08:40→20:48)
[2021-04-09 08:41] VITALS: PULSE 68
[2021-04-09] MEDS: atenoloL 50 MG TABLET PO (08:41)
[2021-04-09] MEDS: CHOLECALCIFEROL 1,000 UNITS TABLET 5000 UNITS PO (08:41)
[2021-04-09] MEDS: LIDOCAINE 5% PATCH 2 PATCH TRANSDERM (08:43)
[2021-04-09] MEDS: ENOXAPARIN 30 MG/0.3 ML SYRINGE SUB-Q (08:43)
[2021-04-09] MEDS: TIMOLOL MALEATE 0.5% OP SOLN 5 ML BOTTLE 1 DROP EACH EYE ×2 (08:44→20:48)
--- NOTE | 2021-04-09 10:31 | P.PNIM_ITS ---
Progress Note: A&P Assessment and Plan (1) Acute kidney injury: Code(s): N17.9 - Acute kidney failure, unspecified Status: Acute Assessment and Plan: Patient is an 80-year-old woman with a history of congestive heart failure on diuretics, hypertension, diabetes, who presented to the emergency room by her primary care provider for elevated kidney function. Initial labs showed she was afebrile, non tachycardic, elevated blood pressure to 181/68, normal oxygenation and respiratory rate on room air. Initial labs showed normocytic anemia with a hemoglobin of 8.9, hematocrit 28%. Normal white blood cell count and differential. Creatinine elevated at 3.8, BUN 55, GFR 11. Normal LFTs and electrolytes. Normal vitamin B12, folic acid levels, iron panel. Chest x-ray showed mild pulmonary edema and small right pleural effusion, cardiomegaly. The patient was admitted into the hospital with acute CHF exacerbation and acute on chronic renal disease. * BUN/CR are not improving during hospitalization, Cr 3.6, BUN 52. * Renal ultrasound showed normal kidney with no hydronephrosis (04/02/21) * Renal flow scan: Symmetric kidney function, delayed renal contrast uptake and delayed renal contrast clearance, consistent with decreased renal function. (04/03/21) * Nephrology consulted and etiology of acute kidney injury is unclear, urine electrolytes suggesting non pre renal, concerned about echocardiogram showing severe and pulmonary hypertension possibly playing a role. * Plan for renal biopsy on (Tomorrow) for further definitive diagnosis. Have to wait a few days while aspirin is on hold for biopsy. Continue monitoring renal function, electrolytes and appreciate Nephrology consultation. (2) CHF (congestive heart failure): Code(s): I50.9 - Heart failure, unspecified Status: Acute Assessment and Plan: Acute on chronic systolic and diastolic CHF exacerbation * Chest x-ray showed mild pulmonary edema and cardiomegaly (04/01/21), 04/04/21 worsening pulmonary edema * BNP 7660 upon admission * Bumex has been started 1 mg PO BID this morning by Nephrology given CHF exacerbation even though having CANDICE. * Echo showing Left ventricular systolic function is normal, estimated at 55- 60%, with severe aortic stenosis with pulmonary pressure of 69. * Concerned Severe is causing some issue with CHF and CANDICE. Cardiology was consulted who recommends the patient having further work up for TAVR to be placed which includes CTA Chest and Cardiac Catheterization * Weston Hose in place at this time, no real pitting edema at this time. * low-sodium diet * Cardiology recommends no aggressive diuresis given severe Continue monitor volume status, electrolytes and renal function. Avoid aggressive diuresis. (3) HTN (hypertension): Code(s): I10 - Essential (primary) hypertension Status: Chronic Assessment and Plan: * Current blood pressure 134/55 * Continue home atenolol 50mg PO daily * Trend blood pressure * adjust medications as needed * Nifedipine 30mg PO once night of 04/03/21 for hypertension, will continue at this time (4) Nausea & vomiting: Code(s): R11.2 - Nausea with vomiting, unspecified Status: Acute Assessment and Plan: * Three episodes of vomiting reported 04/02/21, One episode on 04/03/21 * Zofran 4 mg IV push q.6 p.r.n. * KUB normal gas bowel pattern * Last BM 04/08. Continue senna and Colace plus a suppository PRN (5) Diabetes: Code(s): E11.9 - Type 2 diabete
--- NOTE | 2021-04-09 10:31 | PM.IMPN ---
Progress Note: A&P Assessment and Plan (1) Acute kidney injury: Code(s): N17.9 - Acute kidney failure, unspecified Status: Acute Assessment and Plan: Patient is an 80-year-old woman with a history of congestive heart failure on diuretics, hypertension, diabetes, who presented to the emergency room by her primary care provider for elevated kidney function. Initial labs showed she was afebrile, non tachycardic, elevated blood pressure to 181/68, normal oxygenation and respiratory rate on room air. Initial labs showed normocytic anemia with a hemoglobin of 8.9, hematocrit 28%. Normal white blood cell count and differential. Creatinine elevated at 3.8, BUN 55, GFR 11. Normal LFTs and electrolytes. Normal vitamin B12, folic acid levels, iron panel. Chest x-ray showed mild pulmonary edema and small right pleural effusion, cardiomegaly. The patient was admitted into the hospital with acute CHF exacerbation and acute on chronic renal disease. BUN/CR are not improving during hospitalization, Cr 3.6, BUN 52. Renal ultrasound showed normal kidney with no hydronephrosis (04/02/21) Renal flow scan: Symmetric kidney function, delayed renal contrast uptake and delayed renal contrast clearance, consistent with decreased renal function. (04/03/21) Nephrology consulted and etiology of acute kidney injury is unclear, urine electrolytes suggesting non pre renal, concerned about echocardiogram showing severe and pulmonary hypertension possibly playing a role. Plan for renal biopsy on (Tomorrow) for further definitive diagnosis. Have to wait a few days while aspirin is on hold for biopsy. Continue monitoring renal function, electrolytes and appreciate Nephrology consultation. (2) CHF (congestive heart failure): Code(s): I50.9 - Heart failure, unspecified Status: Acute Assessment and Plan: Acute on chronic systolic and diastolic CHF exacerbation Chest x-ray showed mild pulmonary edema and cardiomegaly (04/01/21), 04/04/21 worsening pulmonary edema BNP 7660 upon admission Bumex has been started 1 mg PO BID this morning by Nephrology given CHF exacerbation even though having CANDICE. Echo showing Left ventricular systolic function is normal, estimated at 55-60%, with severe aortic stenosis with pulmonary pressure of 69. Concerned Severe is causing some issue with CHF and CANDICE. Cardiology was consulted who recommends the patient having further work up for TAVR to be placed which includes CTA Chest and Cardiac Catheterization Weston Hose in place at this time, no real pitting edema at this time. low-sodium diet Cardiology recommends no aggressive diuresis given severe Continue monitor volume status, electrolytes and renal function. Avoid aggressive diuresis. (3) HTN (hypertension): Code(s): I10 - Essential (primary) hypertension Status: Chronic Assessment and Plan: Current blood pressure 134/55 Continue home atenolol 50mg PO daily Trend blood pressure adjust medications as needed Nifedipine 30mg PO once night of 04/03/21 for hypertension, will continue at this time (4) Nausea & vomiting: Code(s): R11.2 - Nausea with vomiting, unspecified Status: Acute Assessment and Plan: Three episodes of vomiting reported 04/02/21, One episode on 04/03/21 Zofran 4 mg IV push q.6 p.r.n. KUB normal gas bowel pattern Last BM 04/08. Continue senna and Colace plus a suppository PRN (5) Diabetes: Code(s): E11.9 - Type 2 diabetes mellitus without complications Status: Chronic Assessment and Plan: Glucose is 108 Hold home glimepiride and metformin initiate sliding scale hypoglycemia protocol trend glucose labs in the am adjust medications as needed (6) Arthritis: Code(s): M19.90 - Unspecified osteoarthritis, unspecified site Status: Acute Assessment and Plan: Hold home jamari
[2021-04-09 11:58] LABS: Glucose Point of Care 165 mg/dl (65-105)
[2021-04-09] MEDS: PANTOPRAZOLE SODIUM IV 40 MG VIAL IV PUSH ×2 (12:14→20:49)
[2021-04-09 14:00] VITALS: BP 130/44; PULSE 55; RESP 16; TEMP 36.6; O2SAT 93
--- NOTE | 2021-04-09 14:45 | PM.PNCARD ---
Progress Note: A&P Assessment and Plan (1) Severe aortic stenosis: Code(s): I35.0 - Nonrheumatic aortic (valve) stenosis Status: Acute Assessment and Plan: 80-year-old female with history of hypertension, CHF with preserved ejection fraction, type 2 diabetes mellitus, CKD, arthritis. Patient admitted to the hospital with worsening renal function. Was found to have severe aortic stenosis on the echocardiogram with preserved LV systolic function , and grade 2 diastolic dysfunction. - Gentle diuresis with Bumex - We will continue to follow along to determine appropriate timing of TAVR work up if renal function improves (2) Acute on chronic diastolic CHF (congestive heart failure): Code(s): I50.33 - Acute on chronic diastolic (congestive) heart failure Status: Acute Assessment and Plan: Patient is currently on bumetanide which is being managed by Nephrology. Monitor volume status, electrolytes and renal function. Avoid aggressive diuresis. (3) Acute kidney injury: Code(s): N17.9 - Acute kidney failure, unspecified Status: Acute Assessment and Plan: - Plan for kidney biopsy to evaluate for any reversible causes of renal insufficiency. - Management per nephrology Additional Plan Patient has severe aortic stenosis with multiple comorbidities, and will likely need aortic valve replacement (TAVR) in near future. However, workup for TAVR will include cardiac catheterization and CTA chest, which would likely worsen patient's renal function . At this time, plan is to monitor patient's renal function, and plan on additional cardiac workup as soon as feasible from nephrology standpoint. Subjective Date/time seen: 04/09/21 14:45 Interval history: Cardiology follow-up for aortic stenosis Date of service 04/09/2021: She does not have any complaints today. She denies any shortness of breath, chest pain. She says that the swelling in her lower extremities is improving. Her daughter is at the bedside - I talked to her at length regarding her diagnosis and plans to determine her candidacy for TAVR in the future if her kidney function has improved. Review of Systems Review of Systems: All systems reviewed & are unremarkable except as noted in HPI and below Constitutional: Constitutional: Denies fatigue, Denies lethargy and Denies weakness Eyes: Eyes: Reports change in vision ENT: Denies Normal hearing present and Denies tinnitus Cardiovascular: Cardiovascular: Denies chest pain, Reports pedal edema, Reports leg edema, Denies lightheadedness and Denies palpitations Respiratory: Respiratory: Denies dyspnea and Denies dyspnea on exertion Gastrointestinal: Gastrointestinal: Denies abdominal pain, Reports nausea and Reports vomiting Genitourinary: Genitourinary: Denies hematuria Musculoskeletal: Musculoskeletal: Denies back pain and Denies neck pain Integumentary/Breasts: Skin/Breast: Denies pruritus and Denies erythema Neurologic: Denies confusion, Reports vertigo and Denies headache(s) Psychiatric: Psychiatric: Denies anxiety, Denies confusion and Denies depression Endocrine: Endocrine: Denies palpitations Hematologic/Lymphatic: Hematologic/Lymphatic: Denies easy bleeding and Denies easy bruising Exam Const: General: comfortable and no acute distress HENMT: Head: normal to inspection Eyes: General: appearance normal, both eyes and all related structures Neck: Neck: supple Other: Unable to assess JVD given body habitus Resp: Effort & Inspection: normal respiratory effort Auscultation: crackles (bases) bilateral and diminished lung sounds Cardio: Rate: regular rate Rhythm: regular rhythm Heart sounds: Murmur heart sound present systolic harsh and at the base GI: GI Palp: Yes Soft to palpation Auscultation: normal bowel sounds Skin: General skin exam: normal color Neuro: Cognition (Neuro): normal cognition Extrem: General: edema and pedal edema Psych: M
[2021-04-09 16:50] LABS: Glucose Point of Care 133 mg/dl (65-105)
[2021-04-09 20:00] VITALS: PULSE 55; RESP 16; O2SAT 93
[2021-04-09] MEDS: LATANOPROST 0.005% OP SOLN 2.5 ML BTL 1 DROP EACH EYE (20:49)
[2021-04-09 21:21] LABS: Glucose Point of Care 154 mg/dl (65-105)
[2021-04-09 22:00] VITALS: BP 179/53; PULSE 60; RESP 16; TEMP 36.1; O2SAT 97
[2021-04-10] VITALS (7 sets, daily range): BP systolic 142–198; BP diastolic 51–79; PULSE 58–63; RESP 16; TEMP 36.2–36.4; O2SAT 94–98
[2021-04-10 06:03] LABS: Hematocrit 24.6 % (37.0-47.0); Hemoglobin 7.7 g/dL (12.0-15.0)
[2021-04-10 06:13] LABS: Prothrombin Time 12.8 Seconds (11.1-14.7)
[2021-04-10 06:19] LABS: Albumin Level 3.2 g/dL (3.5-5.1); Anion Gap 9 mmol/L (8-16); Blood Urea Nitrogen 56 mg/dL (7-17); Calcium 9.1 mg/dL (8.4-10.2); Carbon Dioxide 26 mmol/L (22-30); Chloride 102 mmol/L (98-107); Estimated CRCL calculation 14 ml/min; Estimated Glomerular Filt Rate 13; Glucose 106 mg/dL (65-110); Phosphorus 5.1 mg/dL (2.5-4.5); Potassium 4.6 mmol/L (3.4-5.0); Sodium 137 mmol/L (137-145)
[2021-04-10 07:04] LABS: Partial Thromboplastin Time < 20.0 SECONDS (22.3-36.8)
--- NOTE | 2021-04-10 07:33 | P.PNNP_ITS ---
Progress Note: A&P Assessment and Plan (1) Acute kidney injury: Code(s): N17.9 - Acute kidney failure, unspecified Status: Acute Assessment and Plan: * reported near normal kidney function (GFR ~ 58cc/min) about a year ago * etiology not clear * renal ultrasound without obstruction, good size, no echogenicity. * urine electrolytes non-prerenal (but she was on diuretic therapy) * Echo results noted -- severe aortic stenosis +/- pulmonary HTN playing a role? * serology: [place], Anca, complements are okay. Others are pending. * She gets a renal biopsy today. (2) CHF (congestive heart failure): Code(s): I50.9 - Heart failure, unspecified Status: Acute Assessment and Plan: * as evidence by imaging and exam on presentation * on diuretics as an outpatient * Echo results noted * The patient has significant aortic stenosis. She will need a TAVR. I talked with Dr. Quiroz who says this is not an emergency. We will figure out the kidney issue 1st. If she needs to start dialysis we will proceed with this before any evaluation for the TAVR because it involves dye. (3) Urinary tract infection: Code(s): N39.0 - Urinary tract infection, site not specified Status: Acute Assessment and Plan: * urine culture with E. coli * on ceftriaxone (4) HTN (hypertension): Code(s): I10 - Essential (primary) hypertension Status: Chronic Assessment and Plan: * Systolic in the 120s. (5) Anemia: Code(s): D64.9 - Anemia, unspecified Status: Acute Assessment and Plan: * related to kidney dysfunction? * hemoglobin slowly trending down words. * she is now on Epogen. (6) Diabetes: Code(s): E11.9 - Type 2 diabetes mellitus without complications Status: Chronic Assessment and Plan: * follow accuhecks * glycemic control Will continue to follow. Subjective Date/time seen: 04/10/21 07:33 Interval history: Patient feels okay. No nausea today. She is ready for her renal biopsy Exam Narrative: General: WD/WN female in NAD Heart: normal S1 and S2; no rub or gallop. 2/6 honking systolic murmur Lungs: Clear anteriorly Abdomen: soft, nontender, nondistended, positive bowel sounds Extremities: 2+ edema and no cyanosis Skin: No rash Objective Data Vital Signs Vital Signs: Vital Signs - 24 hr 04/09/21 08:41 04/09/21 14:00 04/09/21 20:00 Temperature 36.6 C Pulse Rate 68 55 L 55 L Respiratory Rate 16 16 Blood Pressure 130/44 L Pulse Oximetry 93 93 04/09/21 22:00 04/10/21 05:59 Temperature 36.1 C L 36.2 C L Pulse Rate 60 63 Respiratory Rate 16 16 Blood Pressure 179/53 H 152/51 H Pulse Oximetry 97 96 Intake/Output Intake/Output: Intake & Output 04/07/21 04/08/21 04/09/21 04/10/21 23:59 23:59 23:59 23:59 Intake Total 1590 1675 1190 100 Output Total 2350 850 1950 400 Balance -760 825 -760 -300 Meds/Results Medications: Active Medications Generic Name Dose Route Start Last Admin Trade Name Freq PRN Reason Stop Dose Admin Aspirin 81 mg 04/02/21 18:00 04/05/21 17:02 Aspirin 81 Mg Chewable Tablet PO 81 mg QPM PAT Administration Atenol
--- NOTE | 2021-04-10 07:33 | PM.PNNEP ---
Progress Note: A&P Assessment and Plan (1) Acute kidney injury: Code(s): N17.9 - Acute kidney failure, unspecified Status: Acute Assessment and Plan: reported near normal kidney function (GFR ~ 58cc/min) about a year ago etiology not clear renal ultrasound without obstruction, good size, no echogenicity. urine electrolytes non-prerenal (but she was on diuretic therapy) Echo results noted -- severe aortic stenosis +/- pulmonary HTN playing a role? serology: [place], Anca, complements are okay. Others are pending. She gets a renal biopsy today. (2) CHF (congestive heart failure): Code(s): I50.9 - Heart failure, unspecified Status: Acute Assessment and Plan: as evidence by imaging and exam on presentation on diuretics as an outpatient Echo results noted The patient has significant aortic stenosis. She will need a TAVR. I talked with Dr. Quiroz who says this is not an emergency. We will figure out the kidney issue 1st. If she needs to start dialysis we will proceed with this before any evaluation for the TAVR because it involves dye. (3) Urinary tract infection: Code(s): N39.0 - Urinary tract infection, site not specified Status: Acute Assessment and Plan: urine culture with E. coli on ceftriaxone (4) HTN (hypertension): Code(s): I10 - Essential (primary) hypertension Status: Chronic Assessment and Plan: Systolic in the 120s. (5) Anemia: Code(s): D64.9 - Anemia, unspecified Status: Acute Assessment and Plan: related to kidney dysfunction? hemoglobin slowly trending down words. she is now on Epogen. (6) Diabetes: Code(s): E11.9 - Type 2 diabetes mellitus without complications Status: Chronic Assessment and Plan: follow accuhecks glycemic control Will continue to follow. Subjective Date/time seen: 04/10/21 07:33 Interval history: Patient feels okay. No nausea today. She is ready for her renal biopsy Exam Narrative: General: WD/WN female in NAD Heart: normal S1 and S2; no rub or gallop. 2/6 honking systolic murmur Lungs: Clear anteriorly Abdomen: soft, nontender, nondistended, positive bowel sounds Extremities: 2+ edema and no cyanosis Skin: No rash Objective Data Vital Signs Vital Signs: Vital Signs - 24 hr 04/09/21 08:41 04/09/21 14:00 04/09/21 20:00 Temperature 36.6 C Pulse Rate 68 55 L 55 L Respiratory Rate 16 16 Blood Pressure 130/44 L Pulse Oximetry 93 93 04/09/21 22:00 04/10/21 05:59 Temperature 36.1 C L 36.2 C L Pulse Rate 60 63 Respiratory Rate 16 16 Blood Pressure 179/53 H 152/51 H Pulse Oximetry 97 96 Intake/Output Intake/Output: Intake & Output 04/07/21 04/08/21 04/09/21 04/10/21 23:59 23:59 23:59 23:59 Intake Total 1590 1675 1190 100 Output Total 2350 850 1950 400 Balance -760 825 -760 -300 Meds/Results Medications: Active Medications Generic Name Dose Route Start Last Admin Trade Name Freq PRN Reason Stop Dose Admin Aspirin 81 mg 04/02/21 18:00 04/05/21 17:02 Aspirin 81 Mg Chewable Tablet PO 81 mg QPM PAT Administration Atenolol 50 mg 04/02/21 11:10 04/09/21 08:41 Atenolol 50 Mg Tablet PO 50 mg DAILY PAT Administration Bisacodyl 10 mg 04/09/21 10:37 Bisacodyl 10 Mg Suppository RECTAL QAM PRN constipation Bumetanide 1 mg 04/08/21 09:00 04/09/21 18:10 Bumetanide 1 Mg Tablet PO 1 mg BID PAT Administration Dextrose 12.5 gm 04/03/21 11:10 Dextrose 50% 25 Gm/50 Ml Syringe IV PUSH PRN PRN Hypoglycemia Protocol Docusate Sodium 100 mg 04/05/21 21:00 04/09/21 20:48 Docusate Sodium 100 Mg Capsule PO 100 mg Q12HR PAT Administration Enoxaparin Sodium 30 mg 04/03/21 09:00 04/09/21 08:43 Enoxaparin 30 Mg/0.3 Ml Syringe SUB-Q 30 mg DAILY PAT Administration Epoetin Dave-epbx 10,000 units 04/08/21 14:00
--- NOTE | 2021-04-10 08:07 | PCNWS ---
Weekly nutritional screen. Patient is tolerating current diet with adequate intake. No weight loss reported. No nutritional needs at this time.
[2021-04-10 09:33] LABS: Glucose Point of Care 98 mg/dl (65-105)
[2021-04-10] MEDS: NIFEdipine 30 MG TAB.ER.24 PO (09:39)
[2021-04-10] MEDS: atenoloL 50 MG TABLET PO (09:39)
[2021-04-10] MEDS: LIDOCAINE 5% PATCH 2 PATCH TRANSDERM (09:39)
[2021-04-10] MEDS: PANTOPRAZOLE SODIUM IV 40 MG VIAL IV PUSH ×2 (09:40→20:49)
[2021-04-10] MEDS: TIMOLOL MALEATE 0.5% OP SOLN 5 ML BOTTLE 1 DROP EACH EYE ×2 (09:40→20:49)
[2021-04-10] MEDS: BUMETANIDE 1 MG TABLET PO ×2 (09:56→17:39)
--- NOTE | 2021-04-10 10:28 | P.PNIM_ITS ---
Progress Note: A&P Assessment and Plan (1) Acute kidney injury: Code(s): N17.9 - Acute kidney failure, unspecified Status: Acute Assessment and Plan: Patient is an 80-year-old woman with a history of congestive heart failure on diuretics, hypertension, diabetes, who presented to the emergency room by her primary care provider for elevated kidney function. Initial labs showed she was afebrile, non tachycardic, elevated blood pressure to 181/68, normal oxygenation and respiratory rate on room air. Initial labs showed normocytic anemia with a hemoglobin of 8.9, hematocrit 28%. Normal white blood cell count and differential. Creatinine elevated at 3.8, BUN 55, GFR 11. Normal LFTs and electrolytes. Normal vitamin B12, folic acid levels, iron panel. Chest x-ray showed mild pulmonary edema and small right pleural effusion, cardiomegaly. The patient was admitted into the hospital with acute CHF exacerbation and acute on chronic renal disease. * BUN/CR are not improving during hospitalization, Cr 3.5, BUN 56. * Renal ultrasound showed normal kidney with no hydronephrosis (04/02/21) * Renal flow scan: Symmetric kidney function, delayed renal contrast uptake and delayed renal contrast clearance, consistent with decreased renal function. (04/03/21) * Nephrology consulted and etiology of acute kidney injury is unclear, urine electrolytes suggesting non pre renal, concerned about echocardiogram showing severe and pulmonary hypertension possibly playing a role. * Plan for renal biopsy Today for further definitive diagnosis. Had to wait a few days while aspirin is on hold for biopsy. Continue monitoring renal function, electrolytes and appreciate Nephrology consultation. (2) CHF (congestive heart failure): Code(s): I50.9 - Heart failure, unspecified Status: Acute Assessment and Plan: Acute on chronic systolic and diastolic CHF exacerbation * Chest x-ray showed mild pulmonary edema and cardiomegaly (04/01/21), 04/04/21 worsening pulmonary edema * BNP 7660 upon admission * Bumex has been started 1 mg PO BID this morning by Nephrology given CHF exacerbation even though having CANDICE. * Echo showing Left ventricular systolic function is normal, estimated at 55- 60%, with severe aortic stenosis with pulmonary pressure of 69. * Concerned Severe is causing some issue with CHF and CANDICE. Cardiology was consulted who recommends the patient having further work up for TAVR to be placed which includes CTA Chest and Cardiac Catheterization * Weston Hose in place at this time, no real pitting edema at this time. * low-sodium diet * Cardiology recommends no aggressive diuresis given severe Continue monitor volume status, electrolytes and renal function. Avoid aggressive diuresis. (3) HTN (hypertension): Code(s): I10 - Essential (primary) hypertension Status: Chronic Assessment and Plan: * Current blood pressure 152/51, stable. * Continue home atenolol 50mg PO daily and Nifedipine 30mg PO once night of 04/03/21 for hypertension, will continue at this time * Trend blood pressure * adjust medications as needed (4) Nausea & vomiting: Code(s): R11.2 - Nausea with vomiting, unspecified Status: Acute Assessment and Plan: * Three episodes of vomiting reported 04/02/21, One episode on 04/03/21. KUB normal gas bowel pattern 04/03/21 * Still having morning nausea, started PPI 04/09/21 and pt does report some imp rovement * Zofran 4 mg IV push q.6 p.r.n. * Last BM 04/08. Continue senna, Colace, miralax plus a suppository PRN
--- NOTE | 2021-04-10 10:28 | PM.IMPN ---
Progress Note: A&P Assessment and Plan (1) Acute kidney injury: Code(s): N17.9 - Acute kidney failure, unspecified Status: Acute Assessment and Plan: Patient is an 80-year-old woman with a history of congestive heart failure on diuretics, hypertension, diabetes, who presented to the emergency room by her primary care provider for elevated kidney function. Initial labs showed she was afebrile, non tachycardic, elevated blood pressure to 181/68, normal oxygenation and respiratory rate on room air. Initial labs showed normocytic anemia with a hemoglobin of 8.9, hematocrit 28%. Normal white blood cell count and differential. Creatinine elevated at 3.8, BUN 55, GFR 11. Normal LFTs and electrolytes. Normal vitamin B12, folic acid levels, iron panel. Chest x-ray showed mild pulmonary edema and small right pleural effusion, cardiomegaly. The patient was admitted into the hospital with acute CHF exacerbation and acute on chronic renal disease. BUN/CR are not improving during hospitalization, Cr 3.5, BUN 56. Renal ultrasound showed normal kidney with no hydronephrosis (04/02/21) Renal flow scan: Symmetric kidney function, delayed renal contrast uptake and delayed renal contrast clearance, consistent with decreased renal function. (04/03/21) Nephrology consulted and etiology of acute kidney injury is unclear, urine electrolytes suggesting non pre renal, concerned about echocardiogram showing severe and pulmonary hypertension possibly playing a role. Plan for renal biopsy Today for further definitive diagnosis. Had to wait a few days while aspirin is on hold for biopsy. Continue monitoring renal function, electrolytes and appreciate Nephrology consultation. (2) CHF (congestive heart failure): Code(s): I50.9 - Heart failure, unspecified Status: Acute Assessment and Plan: Acute on chronic systolic and diastolic CHF exacerbation Chest x-ray showed mild pulmonary edema and cardiomegaly (04/01/21), 04/04/21 worsening pulmonary edema BNP 7660 upon admission Bumex has been started 1 mg PO BID this morning by Nephrology given CHF exacerbation even though having CANDICE. Echo showing Left ventricular systolic function is normal, estimated at 55-60%, with severe aortic stenosis with pulmonary pressure of 69. Concerned Severe is causing some issue with CHF and CANDICE. Cardiology was consulted who recommends the patient having further work up for TAVR to be placed which includes CTA Chest and Cardiac Catheterization Weston Hose in place at this time, no real pitting edema at this time. low-sodium diet Cardiology recommends no aggressive diuresis given severe Continue monitor volume status, electrolytes and renal function. Avoid aggressive diuresis. (3) HTN (hypertension): Code(s): I10 - Essential (primary) hypertension Status: Chronic Assessment and Plan: Current blood pressure 152/51, stable. Continue home atenolol 50mg PO daily and Nifedipine 30mg PO once night of 04/03/21 for hypertension, will continue at this time Trend blood pressure adjust medications as needed (4) Nausea & vomiting: Code(s): R11.2 - Nausea with vomiting, unspecified Status: Acute Assessment and Plan: Three episodes of vomiting reported 04/02/21, One episode on 04/03/21. KUB normal gas bowel pattern 04/03/21 Still having morning nausea, started PPI 04/09/21 and pt does report some improvement Zofran 4 mg IV push q.6 p.r.n. Last BM 04/08. Continue senna, Colace, miralax plus a suppository PRN (5) Diabetes: Code(s): E11.9 - Type 2 diabetes mellitus without complications Status: Chronic Assessment and Plan: Glucose is 106 Hold home glimepiride and metformin initiate sliding scale hypoglycemia protocol trend glucose labs in the am adjust medications as needed (6) Arthritis: Code(s): M19.90 - Unspecified os
[2021-04-10 12:05] LABS: Glucose Point of Care 117 mg/dl (65-105)
--- NOTE | 2021-04-10 12:15 | PC.NURSE ---
to radiology dept for scheduled biopsy via stretcher
--- NOTE | 2021-04-10 13:05 | PC.NURSE ---
1248 call from US stating pt's BP was too elevated to do biopsy at this time the procedure guidelines call for BP to be below 165/100 for one hour before they can bring pt back down to do biopsy 1257 pt has returned to floor and BP rechecked 187/79 pt is doing well, feels fine, denies nausea or any other symptoms 1302 call to Yin Rivera to update pt on condition and let her know daughter at bedside would like to speak with her
[2021-04-10] MEDS: hydrALAZINE HCL 20 MG/ML VIAL 10 MG IV PUSH (13:59)
--- NOTE | 2021-04-10 14:46 | PC.NURSE ---
Addendum entered by Demetra Ferrara RN 04/10/21 14:46: current IV is working but is positional and near a joint Original Note: call to Vascular filament cutter to obtain ultra sound guided IV for access
--- NOTE | 2021-04-10 16:02 | PM.PNCARD ---
Progress Note: A&P Assessment and Plan (1) Severe aortic stenosis: Code(s): I35.0 - Nonrheumatic aortic (valve) stenosis Status: Acute Assessment and Plan: 80-year-old female with history of hypertension, CHF with preserved ejection fraction, type 2 diabetes mellitus, CKD, arthritis. Patient admitted to the hospital with worsening renal function. Was found to have severe aortic stenosis on the echocardiogram with preserved LV systolic function , and grade 2 diastolic dysfunction. - Gentle diuresis with Bumex - She is hypertensive. Will increase her nifedipine to 60 mg - We will continue to follow along to determine appropriate timing of TAVR work up if renal function improves (2) Acute on chronic diastolic CHF (congestive heart failure): Code(s): I50.33 - Acute on chronic diastolic (congestive) heart failure Status: Acute Assessment and Plan: Patient is currently on bumetanide which is being managed by Nephrology. Monitor volume status, electrolytes and renal function. Avoid aggressive diuresis. (3) Acute kidney injury: Code(s): N17.9 - Acute kidney failure, unspecified Status: Acute Assessment and Plan: - Plan for kidney biopsy to evaluate for any reversible causes of renal insufficiency. - Management per nephrology Subjective Date/time seen: 04/10/21 16:02 Interval history: Cardiology follow-up for aortic stenosis Date of service 04/09/2021: She does not have any complaints today. She denies any shortness of breath, chest pain. She says that the swelling in her lower extremities is improving. Her daughter is at the bedside - I talked to her at length regarding her diagnosis and plans to determine her candidacy for TAVR in the future if her kidney function has improved. Date of service 04/10/2021: Feeling good today. Continues to deny shortness of breath. Lower extremity swelling is minimal. Review of Systems Review of Systems: All systems reviewed & are unremarkable except as noted in HPI and below Constitutional: Constitutional: Denies fatigue, Denies headache(s), Denies lethargy and Denies weakness Eyes: Eyes: Reports change in vision ENT: Denies Normal hearing present, Reports vertigo, Denies headache(s), Denies neck pain and Denies tinnitus Cardiovascular: Cardiovascular: Denies chest pain, Reports pedal edema, Reports leg edema, Denies lightheadedness, Denies palpitations, Denies dyspnea and Denies dyspnea on exertion Respiratory: Respiratory: Denies dyspnea and Denies dyspnea on exertion Gastrointestinal: Gastrointestinal: Denies abdominal pain, Reports nausea and Reports vomiting Genitourinary: Genitourinary: Denies hematuria Musculoskeletal: Musculoskeletal: Denies back pain and Denies neck pain Integumentary/Breasts: Skin/Breast: Denies pruritus and Denies erythema Neurologic: Denies Normal hearing present, Denies confusion, Reports vertigo, Denies headache(s) and Denies weakness Psychiatric: Psychiatric: Denies anxiety, Denies confusion and Denies depression Endocrine: Endocrine: Denies fatigue and Denies palpitations Hematologic/Lymphatic: Hematologic/Lymphatic: Denies easy bleeding and Denies easy bruising Exam Const: General: comfortable and no acute distress; No confusion Orientation/consciousness: No confusion HENMT: Head: normal to inspection Eyes: General: appearance normal, both eyes and all related structures Neck: Neck: supple Other: Unable to assess JVD given body habitus Resp: Effort & Inspection: normal respiratory effort Auscultation: diminished lung sounds Cardio: Rate: regular rate Rhythm: regular rhythm Heart sounds: Murmur heart sound present systolic harsh and at the base GI: Auscultation: normal bowel sounds Skin: General skin exam: normal color Neuro: General: No confusion Cranial nerves: No Normal hearing present Cognition (Neuro): normal cognition Extrem: General: edema and pedal edema Ps
[2021-04-10 16:25] LABS: Glucose Point of Care 137 mg/dl (65-105)
[2021-04-10] MEDS: polyethylene glycoL 3350 17 GM POWD.PACK PO (17:37)
[2021-04-10] MEDS: DOCUSATE SODIUM 100 MG CAPSULE PO ×2 (17:38→20:49)
[2021-04-10] MEDS: SENNA/DOCUSATE SODIUM TABLET 1 TAB PO (17:39)
[2021-04-10] MEDS: EPOETIN ALFA-EPBX 10,000 UNITS/ML VIAL 10000 UNITS SUB-Q (17:39)
[2021-04-10] MEDS: LATANOPROST 0.005% OP SOLN 2.5 ML BTL 1 DROP EACH EYE (20:49)
[2021-04-10] MEDS: cloNIDine HCL 0.1 MG TABLET PO (20:49)
[2021-04-10 21:00] LABS: Glucose Point of Care 136 mg/dl (65-105)
[2021-04-11 05:17] VITALS: BP 134/50; PULSE 52; RESP 16; TEMP 36.3; O2SAT 96
[2021-04-11 05:53] LABS: Hematocrit 23.6 % (37.0-47.0); Hemoglobin 7.6 g/dL (12.0-15.0); Mean Corpuscular HGB Conc 32.2 g/dl (32-36); Mean Corpuscular Hemoglobin 31.4 pg (26-34); Mean Corpuscular Volume 97.5 fl (80-100); Mean Platelet Volume 9.7 fl (7.4-10.4); Platelet Count Result 245 k/mm3 (150-375); Red Blood Count 2.42 M/mm3 (4.2-5.4); Red Cell Distribution Width 12.3 % (11.5-14.5); White Blood Count 5.6 K/mm3 (4.5-10.0)
[2021-04-11 07:45] LABS: Anion Gap 7 mmol/L (8-16); Blood Urea Nitrogen 57 mg/dL (7-17); Carbon Dioxide 29 mmol/L (22-30); Chloride 103 mmol/L (98-107); Estimated CRCL calculation 13 ml/min; Estimated Glomerular Filt Rate 11; Glucose 125 mg/dL (65-110); Potassium 4.2 mmol/L (3.4-5.0); Sodium 139 mmol/L (137-145)
[2021-04-11 07:46] LABS: Albumin Level 3.4 g/dL (3.5-5.1); Calcium 9.4 mg/dL (8.4-10.2); Phosphorus 5.1 mg/dL (2.5-4.5)
[2021-04-11 08:24] LABS: Glucose Point of Care 137 mg/dl (65-105)
[2021-04-11 08:39] VITALS: BP 158/60
[2021-04-11] MEDS: cloNIDine HCL 0.1 MG TABLET PO (08:40)
[2021-04-11] MEDS: BUMETANIDE 1 MG TABLET PO (08:40)
[2021-04-11] MEDS: NIFEdipine 30 MG TAB.ER.24 60 MG PO (08:40)
[2021-04-11] MEDS: TIMOLOL MALEATE 0.5% OP SOLN 5 ML BOTTLE 1 DROP EACH EYE (08:43)
[2021-04-11] MEDS: PANTOPRAZOLE SODIUM IV 40 MG VIAL IV PUSH (08:43)
[2021-04-11 08:45] VITALS: PULSE 54; RESP 16; O2SAT 97
[2021-04-11 11:40] LABS: Glucose Point of Care 160 mg/dl (65-105)
--- NOTE | 2021-04-11 11:40 | PC.NURSE ---
pt to US for scheduled procedure via stretcher
--- NOTE | 2021-04-11 12:21 | PM.PNNEP ---
Progress Note: A&P Assessment and Plan (1) Acute kidney injury: Code(s): N17.9 - Acute kidney failure, unspecified Status: Acute Assessment and Plan: reported near normal kidney function (GFR ~ 58cc/min) about a year ago etiology not clear renal ultrasound without obstruction, good size, no echogenicity. urine electrolytes non-prerenal (but she was on diuretic therapy) Echo results noted -- severe aortic stenosis +/- pulmonary HTN playing a role? serology: [place], Anca, complements are okay. Others are pending. She gets a renal biopsy today. (2) CHF (congestive heart failure): Code(s): I50.9 - Heart failure, unspecified Status: Acute Assessment and Plan: as evidence by imaging and exam on presentation on diuretics as an outpatient Echo results noted The patient has significant aortic stenosis. She will need a TAVR. I talked with Dr. Quiroz who says this is not an emergency. We will figure out the kidney issue 1st. If she needs to start dialysis we will proceed with this before any evaluation for the TAVR because it involves dye. If the biopsy shows ischemic changes mostly then it would possibly be that the aortic stenosis is causing the decreased kidney function. If that is the case I will talk with Dr. Quiroz about which way to proceed. If the biopsy shows something else that we can treat then we will treat this 1st. If the biopsy shows chronic scarred kidney then we would go ahead with evaluation for the TAVR and proceed with dialysis when needed. (3) Urinary tract infection: Code(s): N39.0 - Urinary tract infection, site not specified Status: Acute Assessment and Plan: urine culture with E. coli on ceftriaxone (4) HTN (hypertension): Code(s): I10 - Essential (primary) hypertension Status: Chronic Assessment and Plan: Systolic in the 120s. (5) Anemia: Code(s): D64.9 - Anemia, unspecified Status: Acute Assessment and Plan: related to kidney dysfunction? hemoglobin slowly trending down words. she is now on Epogen. (6) Diabetes: Code(s): E11.9 - Type 2 diabetes mellitus without complications Status: Chronic Assessment and Plan: follow accuhecks glycemic control Will continue to follow. Subjective Date/time seen: 04/11/21 12:21 Interval history: Velma is feeling better today. He is ready for her kidney biopsy. Yesterday it was put off because her blood pressure was high. She was given extra blood pressure medications and her blood pressures overnight and this morning have been good. She has no chest pain or shortness of breath. Exam Narrative: General: WD/WN female in NAD Heart: normal S1 and S2; no rub or gallop. 2/6 honking systolic murmur Lungs: Clear anteriorly Abdomen: soft, nontender, nondistended, positive bowel sounds Extremities: 2+ edema and no cyanosis Skin: No rash Objective Data Vital Signs Vital Signs: Vital Signs - 24 hr 04/10/21 12:57 04/10/21 13:54 04/10/21 15:05 Temperature 36.4 C Pulse Rate 58 L Respiratory Rate 16 Blood Pressure 187/79 H 198/66 H 165/67 H Pulse Oximetry 94 04/10/21 20:00 04/10/21 22:00 04/11/21 05:17 Temperature 36.2 C L 36.3 C L Pulse Rate 63 63 52 L Respiratory Rate 16 16 16 Blood Pressure 142/51 H 134/50 L Pulse Oximetry 98 98 96 04/11/21 08:39 04/11/21 08:45 Temperature Pulse Rate 54 L Respiratory Rate 16 Blood Pressure 158/60 H Pulse Oximetry 97 Intake/Output Intake/Output: Intake & Output 04/08/21 04/09/21 04/10/21 04/11/21 23:59 23:59 23:59 23:59 Intake Total 1675 1190 400 100 Output Total 850 1950 1850 450 Balance 825 760 -1450 -350 Meds/Results Medications: Active Medications Generic Name Dose Route Start Last Admin Trade Name Freq PRN Reason Stop Dose Admin Aspirin 81 mg 04/02/21 18:00 04/05/21 17:02 Aspirin 81 Mg Chewable Ta
--- NOTE | 2021-04-11 13:10 | PC.NURSE ---
pt returned to room, assisted to bed, doing well
--- NOTE | 2021-04-11 14:06 | PM.IMPN ---
Progress Note: A&P Assessment and Plan (1) Acute kidney injury: Code(s): N17.9 - Acute kidney failure, unspecified Status: Acute Assessment and Plan: Creatinine elevated at 3.8, BUN 55, GFR 11. Normal LFTs and electrolytes. Normal vitamin B12, folic acid levels, iron panel. Chest x-ray showed mild pulmonary edema and small right pleural effusion, cardiomegaly. BUN/CR have not improved during hospitalization, Cr 3.8 today. Renal ultrasound showed normal kidney with no hydronephrosis (04/02/21) Renal flow scan: Symmetric kidney function, delayed renal contrast uptake and delayed renal contrast clearance, consistent with decreased renal function. (04/03/21) Nephrology consulted and etiology of acute kidney injury is unclear. Urine electrolytes suggesting non pre renal but no Lasix on admission. Concern for poor renal perfusion from the severe and pulmonary hypertension; Renal artery stenosis? since even mild stenosis might be problematic with the severe . Renal biopsy performed today for further definitive diagnosis. (2) Severe aortic stenosis: Code(s): I35.0 - Nonrheumatic aortic (valve) stenosis Status: Acute Assessment and Plan: Echo on 04/02/2021 showing severe aortic stenosis with aortic valve area of 0.7 cm2. Cardiology consulted and suggest possible aortic valve replacement (TAVR) in the near future. Patient will need workup to include a cardiac catheterization and a CTA of her chest, which cannot be completed at this time due to renal function. Cardiology will continue monitoring the patients renal function, and plan on cardiac workup as soon as feasible from Nephrology standpoint. (3) CHF (congestive heart failure): Code(s): I50.9 - Heart failure, unspecified Status: Acute Assessment and Plan: Acute on chronic systolic and diastolic CHF exacerbation Chest x-ray showed mild pulmonary edema and cardiomegaly (04/01/21), 04/04/21 worsening pulmonary edema BNP 7660 upon admission Echo showing normal LV systolic function with EF 55-60%, with severe aortic stenosis with pulmonary pressure of 69. Concern that the severe is causing some of the CHF and CANDICE. Cardiology was consulted who recommends the patient having further work up for TAVR to be placed which includes CTA Chest and Cardiac Catheterization Weston Hose in place at this time, no real pitting edema at this time. Continue low-sodium diet Cardiology recommends no aggressive diuresis given severe ; Negative fluid balance at 1.2L since admisison Continue monitor volume status, electrolytes and renal function. Avoid aggressive diuresis. (4) HTN (hypertension): Code(s): I10 - Essential (primary) hypertension Status: Chronic Assessment and Plan: BP reviewed on 04/11 and elevated at times. We continued home atenolol 50mg PO daily and Nifedipine (but increased from 30mg to 60mg). Clonidine ordered adjust medications as needed (5) Nausea & vomiting: Code(s): R11.2 - Nausea with vomiting, unspecified Status: Acute Assessment and Plan: [place] had three episodes of vomiting reported 04/02/21, One episode on 04/03/21. KUB normal gas bowel pattern 04/03/21 Zofran 4 mg IV push q.6 p.r.n. available with last dose at 04/09. Last BM 04/08. Continue senna, Colace, miralax. Repeat suppository. (6) Diabetes: Code(s): E11.9 - Type 2 diabetes mellitus without complications Status: Chronic Assessment and Plan: Glucose reviewed on 04/11. Glucose well controlled off glimepiride and metformin. Continue to monitor with AccuCheks covering with sliding scale. Hypoglycemia protocol available as needed (7) Arthritis: Code(s): M19.90 - Unspecified osteoarthritis, unspecified site Status: Acute Assessment and Plan: Stable. Home meloxicam on hold. Continue lidocaine patch for knees (8) Anemia: Code(s): D64.9 - An
[2021-04-11] MEDS: BISACODYL 10 MG SUPPOSITORY RECTAL (14:40)
[2021-04-11 16:14] LABS: Glucose Point of Care 171 mg/dl (65-105)
--- NOTE | 2021-04-11 16:25 | PM.DS ---
DS: Admitting Diagnosis Admitting Diagnosis CANDICE DS: Discharge Diagnosis Discharge Diagnosis (1) Acute kidney injury: Code(s): N17.9 - Acute kidney failure, unspecified Status: Acute Assessment and Plan: Creatinine elevated at 3.8, BUN 55, GFR 11 on admission. Normal LFTs and electrolytes. Normal vitamin B12, folic acid levels, iron panel. Chest x-ray showed mild pulmonary edema and small right pleural effusion, cardiomegaly. Renal flow scan: Symmetric kidney function, delayed renal contrast uptake and delayed renal contrast clearance, consistent with decreased renal function. (04/03/21) Nephrology consulted and etiology of acute kidney injury is unclear. Urine electrolytes suggesting non pre renal but no Lasix on admission. Concern for poor renal perfusion from the severe and pulmonary hypertension BUN/CR have not improved during hospitalization, Cr 3.8 at time of discharge Renal biopsy performed 04/11 for further definitive diagnosis. Addendum: After discharge, renal bx results have returned showing acute tubular injury and arterionephrosclerosis. Results sent to Dr Sotelo. (2) Severe aortic stenosis: Code(s): I35.0 - Nonrheumatic aortic (valve) stenosis Status: Acute Assessment and Plan: Echo on 04/02/2021 showing severe aortic stenosis with aortic valve area of 0.7 cm2. Cardiology consulted and suggest possible aortic valve replacement (TAVR) in the near future. Patient will need workup to include a cardiac catheterization and a CTA of her chest, which cannot be completed at this time due to renal function. Cardiology will continue monitoring the patients renal function, and plan on cardiac workup as soon as feasible from Nephrology standpoint. (3) CHF (congestive heart failure): Code(s): I50.9 - Heart failure, unspecified Status: Acute Assessment and Plan: Acute on chronic diastolic CHF exacerbation. Chest x-ray showed mild pulmonary edema and cardiomegaly and BNP 7660 upon admission. Echo showing normal LV systolic function with EF 55-60%, with severe aortic stenosis with pulmonary pressure of 69. Concern that the severe is causing some of the CHF and CANDICE. Cardiology was consulted who recommended the patient having further work up for TAVR to be placed which includes CTA Chest and Cardiac Catheterization. Cardiology recommended also no aggressive diuresis given severe ; Negative fluid balance at 1.2L since admission. (4) HTN (hypertension): Code(s): I10 - Essential (primary) hypertension Status: Chronic Assessment and Plan: BP was monitored closely. We continued home atenolol and Nifedipine (but increased from 30mg to 60mg). (5) Nausea & vomiting: Code(s): R11.2 - Nausea with vomiting, unspecified Status: Acute Assessment and Plan: [place] had three episodes of vomiting reported 04/02/21, One episode on 04/03/21. KUB normal gas bowel pattern 04/03/21. Zofran was available as needed (6) Diabetes: Code(s): E11.9 - Type 2 diabetes mellitus without complications Status: Chronic Assessment and Plan: Glucose was monitored closely with AccuCheks covering with sliding scale. Hypoglycemia protocol was available as needed. Glucose remained well controlled. (7) Arthritis: Code(s): M19.90 - Unspecified osteoarthritis, unspecified site Status: Acute Assessment and Plan: Stable. Home meloxicam remained on hold. (8) Anemia: Code(s): D64.9 - Anemia, unspecified Status: Acute Assessment and Plan: Hgb 8.9 on admission. Iron panel normal, B12 and folate normal. Most likely secondary to chronic kidney disease. Hgb drifted down to 7 range but there remained stable. (9) Urinary tract infection: Code(s): N39.0 - Urinary tract infection, site not specified Status: Acute Assessment and Plan: UA showing LE 1+, WBC 16-20, Bacteria 2+. UCx
--- NOTE | 2021-04-15 13:18 | PC.NURSE ---
Rneal Doppler faxed to Dr. Sorensen. DR. Monteiro aware of findings.
--- NOTE | 2021-04-22 10:46 | PC.NURSE ---
Kidney bx report faxed to Dr. Sotelo. Dr. Monteiro aware.
== END 2021-04-11 19:05 | disposition home or self-care (01) | DRG 682 ==
LOC: ANHED 04-02 01:02 → ANH2MED 04-02 02:42
PROVIDERS: Emergency Medicine; Internal Medicine; Internal Medicine Nephrology; Physician Assistant; Admitting Provider Internal Medicine; Emergency Provider General Practice; PCP Family Medicine Adolescent Medicine; Visit Provider Nurse Practitioner
DX: N17.9 Acute kidney failure, unspecified (principal); I50.43 Acute on chronic combined systolic (congestive) and diastolic (congestive) heart failure; N39.0 Urinary tract infection, site not specified; I11.0 Hypertensive heart disease with heart failure; E11.9 Type 2 diabetes mellitus without complications; D64.9 Anemia, unspecified; M19.90 Unspecified osteoarthritis, unspecified site; B96.20 Unspecified Escherichia coli [E. coli] as the cause of diseases classified elsewhere; I35.0 Nonrheumatic aortic (valve) stenosis
CPT/HCPCS: 36415; 50200; 71045; 71046; 74018; 76775; 76942; 78707; 80053; 80069; 80074; 81001; 81002; 81050; 82570; 82595; 82607; 82728; 82746; 82948; 83520; 83540; 83550; 83735; 83874; 83880; 83883; 83935; 84100; 84133; 84155; 84156; 84165; 84166; 84300; 84540; 85014; 85018; 85025; 85027; 85055; 85610; 85730; 85999; 86021; 86038; 86160; 86162; 86225; 86706; 87077; 87086; 87088; 87186; 88300; 88305; 88313; 88329; 88346; 88348; 88350; 96372; 96374; 96375; 97110; 97116; 97162; 97165; 97530; 97535; 99285; A9270; A9562; C8929; C9113; G0378; J0360; J0696; J1650; J1815; J2405; J3475; Q5106; Q9957

== ENCOUNTER 2021-12-03 17:05 | Inpatient (IN) | payer MEDICARE, SELFPAY ==
[2021-12-03] VITALS (27 sets, daily range): BP systolic 94–142; BP diastolic 44–68; PULSE 51–70; RESP 15–28; TEMP 35.9–36.2; O2SAT 92–100; BMI 45.4
--- NOTE | ~2021-12-03 | CT_ITS ---
EXAMINATION: CT brain wo con DATE: 12/03/2021 17:47 INDICATION: Cardiac arrest. TECHNIQUE: Computed tomography (CT) of the head was performed without intravenous contrast. The mA wa s adjusted according to patient size. Iterative reconstruction technique was employed. The dose-lengt h product was 681.00 mGy-cm. COMPARISON: 04/26/2013. FINDINGS: No acute intracranial hemorrhage or extra-axial fluid collection. No hydrocephalus, mass, or herniation. No acute ischemic infarct. Unremarkable dural venous sinus attenuation. No acute osseous abnormality. The aerated spaces are clear. Bilateral lens replacements. Partially visualized endotracheal and NG tubes. Mild atrophy and chronic white matter change. Atherosclerotic intracranial calcifications. Cavum septum pellucidum et vergae. Periodontal disease. IMPRESSION: No acute intracranial process. Reviewed, dictated and finalized at location K.
--- NOTE | ~2021-12-03 | CT_ITS ---
EXAMINATION: CT chest abdomen pelvis wo con DATE: 12/03/2021 20:05 INDICATION: Cardiac arrest, aspiration, lactic acidosis. History of CHF, diabetes, kidney failure. TECHNIQUE: Computed tomography (CT) of the chest, abdomen and pelvis was performed without intravenou s contrast. Automated exposure control and iterative reconstruction technique were employed. The dose -length product was 2049.49 mGy-cm. COMPARISON: None FINDINGS: Limitations: Noncontrast technique, respiratory motion, arm down positioning. CHEST: Thoracic aorta: Mild ectasia. Atherosclerotic calcifications. Lung parenchyma and airways: Volume loss, multifocal, bilateral subsegmental opacities and mosaic att enuation. Considerable motion artifact in the lungs. Secretions in the trachea and possibly left lowe r lobe bronchi. Endotracheal tube terminating in the distal trachea. Thoracic inlet, axillae and chest wall: Unremarkable. Mediastinum: Unremarkable. Heart and pericardium: Cardiomegaly. Coronary artery calcifications: Heavy. Pleura: Moderate volume bilateral pleural effusions, greater on the right. No pleural mass. Thoracic bones: Multiple mildly displaced and angulated bilateral anterior and anterolateral rib frac tures. ABDOMEN/PELVIS: Liver: No liver injury. No mass. Presumed arterial or granulomatous calcifications. Biliary/Gallbladder: Gallbladder is normal. No bile duct dilation. Spleen: Granulomatous calcifications. Pancreas: No mass or duct dilation. Adrenals:No mass. Kidneys: No mass, stone, or hydronephrosis. GI tract: NG tube terminates in the stomach. No small or large bowel wall thickening. The rectum is d ilated up to 7.9 cm by formed stool. No proximal obstruction. Appendix not visualized. Mesentery/Peritoneum: No ascites, mass, or free air. Retroperitoneum: No mass. Pelvis: The bladder is decompressed by a Soto catheter. Uterus not visualized.. Bones/Soft Tissues: Diffuse subcutaneous edema in the trunk. Degenerative changes. Additional Findings: None. IMPRESSION: Moderate bilateral pleural effusions with pulmonary findings felt to mostly represent pulmonary edema and atelectasis, with possible aspiration. Pulmonary infection cannot be excluded. Multiple bilatera l rib fractures consistent with resuscitation attempts. Fecal impaction. Body wall edema. Reviewed, dictated and finalized at location K. IMPRESSION: Moderate bilateral pleural effusions with pulmonary findings felt to mostly rep resent pulmonary edema and atelectasis, with possible aspiration. Pulmonary inf ection cannot be excluded. Multiple bilateral rib fractures consistent with res uscitation attempts. Fecal impaction. Body wall edema.
--- NOTE | ~2021-12-03 | XR_ITS ---
EXAMINATION: XR chest ET placement DATE: 12/03/2021 17:29 INDICATION: Cardiac arrest. Intubation. TECHNIQUE: A single frontal view of the chest was obtained. COMPARISON: Chest single view 04/05/2021 FINDINGS: The patient is rotated to her left. There are small pleural effusions. There are airspace o pacities in all lung zones bilaterally with a perihilar and basilar predominance. No pneumothorax. Ca rdiomegaly is noted. The endotracheal tube tip to 6 mm above the subha. IMPRESSION: 1. Endotracheal tube 6 mm above the subha. 2. Diffuse lung disease, consistent with pulmonary edema versus pneumonia. 3. Small pleural effusions. 4. Cardiomegaly. Reviewed, dictated and finalized at location A.
--- NOTE | ~2021-12-03 | XR_ITS ---
EXAM: XR abdomen NG/feed tube insert HISTORY: OG tube insertion COMPARISON: 04/03/2021. FINDINGS: Bilateral basilar opacities with small suspected angle blunting. NG tube, tip and side por t projecting over the stomach. Partially visualized bowel gas pattern is normal. Degenerative lumbar change. IMPRESSION: Nasogastric tube, in good position. Bibasilar atelectasis/consolidation with possible small pleural e ffusions. Reviewed, dictated and finalized at location K. IMPRESSION: Nasogastric tube, in good position. Bibasilar atelectasis/consolidation with po ssible small pleural effusions.
--- NOTE | 2021-12-03 17:07 | ECG_ITS ---
Measurements Intervals [place] Rate: 64 P: 66 TN: 196 QRS: -12 QRSD: 113 T: 159 QT: 423 QTc: 438 Interpretive Statements SINUS RHYTHM MODERATE INTRAVENTRICULAR CONDUCTION DELAY [110+ ms QRS DURATION] ST DEVIATION AND MODERATE T-WAVE ABNORMALITY, CONSIDER LATERAL ISCHEMIA [-0.1+ mV T WAVE IN I/aVL/V5/V6] ABNORMAL ECG NO PREVIOUS ECG AVAILABLE FOR COMPARISON Electronically Signed On 12-04-2021 16:41:19 CDT by Shaquille Lopez M.D.
[2021-12-03 17:13] LABS: Alveolar/Arterial O2 Gradient 445.9 mmHg; Base Excess ABG -12.7 mEq/l (+/-2.0); Fractional Inspired Oxygen 100 %; Oxygen Content ABG 14.4 %vol (16.0-22.0); Oxygen Saturation ABG 99.4 % (95.0-100.0); Oxyhemoglobin 98.4 % THb (90.0-100.0); PCO2 ABG 35.1 mmHg (35.0-45.0); PO2 FiO2 Ratio Arterial Blood 2.32 %
[2021-12-03 17:14] LABS: Device AMBU BAG; Modified Allen's Test Pass; Site Drawn LEFT BRACHIAL
[2021-12-03 17:23] LABS: Basophils Percent Auto 0.2 % (0.2-1.2); Eosinophils Percent Auto 0.3 % (0-4.4); Hematocrit 28.7 % (37.0-47.0); Hemoglobin 9.1 g/dL (12.0-15.0); Immature Granulocyte Absolute 0.54 K/mm3 (0.00-0.031); Immature Granulocyte Percent A 4.5 % (0-0.5); Lymphocytes Absolute Auto 3.28 K/mm3 (0.9-3.2); Lymphocytes Percent Auto 27.6 % (18.3-44.2); Mean Corpuscular HGB Conc 31.7 g/dl (32-36); Mean Corpuscular Hemoglobin 30.6 pg (26-34); Mean Corpuscular Volume 96.6 fl (80-100); Mean Platelet Volume 9.3 fl (7.4-10.4); Monocytes Absolute Auto 0.6 K/mm3 (0.1-0.6); Monocytes Percent Auto 4.6 % (2.6-8.5); Neutrophils Absolute Auto 7.5 K/mm3 (1.3-6.7); Neutrophils Percent Auto 62.8 % (45.5-73.1); Platelet Count Result 313 k/mm3 (150-375); Red Blood Count 2.97 M/mm3 (4.2-5.4); Red Cell Distribution Width 12.3 % (11.5-14.5); White Blood Count 11.9 K/mm3 (4.5-10.0)
[2021-12-03] MEDS: SODIUM CHLORIDE 0.9% IV 1,000 ML 999 ML IV CONT (17:26)
[2021-12-03 17:33] LABS: Alanine Aminotransferase 58 U/L (4-35); Albumin Level 3.9 g/dL (3.5-5.1); Alkaline Phosphatase 74 U/L (38-126); Anion Gap 20 mmol/L (8-16); Aspartate Amino Transferase 91 U/L (14-36); Bilirubin,Total 0.8 mg/dL (0.2-1.3); Blood Urea Nitrogen 90 mg/dL (7-17); Calcium 8.6 mg/dL (8.4-10.2); Carbon Dioxide 19 mmol/L (22-30); Chloride 99 mmol/L (98-107); Estimated Glomerular Filt Rate 12; Glucose 298 mg/dL (65-110); Lipase 99 U/L (23-300); Magnesium 2.4 mg/dL (1.6-2.3); Potassium 3.2 mmol/L (3.4-5.0); Sodium 138 mmol/L (137-145)
[2021-12-03 17:35] LABS: Lactic Acid Reflex 8.8 mmol/L (0.7-2.1)
--- NOTE | 2021-12-03 17:37 | ED.CPR ---
HPI - CPR General Chief Complaint: Cardiac Arrest/CPR Stated Complaint: cardiac arrest Time Seen by Provider: 12/03/21 17:05 Source: family, EMS, RN notes reviewed and old records reviewed Mode of arrival: EMS Limitations: clinical condition History of Present Illness HPI narrative: This is an 81 year old female with history of severe aortic stenosis, CHF, Kidney failure who presents in cardiopulmonary arrest. EMS states they arrived at patient's home around 1640. Patient was in cardiac arrest in asystole. ACLS protocol was started and patient received epinephrine x 3. On arrival to ER, patient had return of spontaneous circulation . Family states patient has been having increasing swelling to her leg and shortness of breath. Her daughter has doubled her diuretic and patient was placed on home oxygen this week. Family states today patient has been having nausea all day and she was having difficulty getting up out of wheelchair. EMS reported that patient told someone she was short of breath and having chest pain prior to collapsing. Patient has severe aortic stenosis that her daughter reports patient needs TAVR. She has been unable to have procedure due to kidney failure. She is currently on antibiotics for dental infections. Bystander CPR performed: No Shock advised: No Initial findings in the field: unresponsive and no pulse ROSC in the field: Yes Treatments prior to arrival: intubation and epinephrine mgs # (3) Related Data Home Medications Medication Instructions Recorded Confirmed ascorbic acid (vitamin C) 1,000 mg PO QPM 04/02/21 12/03/21 aspirin 81 mg PO QPM 04/02/21 12/03/21 atenolol 50 mg PO DAILY 04/02/21 12/03/21 atorvastatin 40 mg PO QPM 04/02/21 12/03/21 cholecalciferol (vitamin D3) 125 mcg PO DAILY 04/02/21 12/03/21 [Vitamin D3] furosemide 40 mg PO BID 04/02/21 12/03/21 latanoprost 1 drp EACH EYE HS 04/02/21 12/03/21 sennosides [Senokot] 8.6 mg PO BID PRN MDD constipation 04/02/21 12/03/21 timolol maleate 1 drp EACH EYE Q12H 04/02/21 12/03/21 oxybutynin chloride 15 mg PO DAILY 12/03/21 12/03/21 Allergies Allergy/AdvReac Type Severity Reaction Status Date / Time ibuprofen Allergy Unknown Swelling Verified 04/02/21 04:26 of Lip/Tongue/Throat Review of Systems Review of Systems: ROS unobtainable: Yes unobtainable due to endotracheal tube PMFSH Past Medical History Medical History (Updated 12/04/21 @ 00:01 by Rossy Ding PA-C) Anemia Arthritis Chronic anemia Chronic heart failure with preserved ejection fraction Chronic kidney disease Kidney biopsy in March 2021 showed acute tubular injury with arterionephrosclerosis. Glaucoma Grade II diastolic dysfunction Hyperlipidemia Hypertension Morbid obesity Severe pulmonary hypertension Type 2 diabetes mellitus Surgical History Surgical History (Updated 12/03/21 @ 23:54 by Rossy Ding PA-C) History of appendectomy History of bilateral cataract extraction History of hysterectomy Family History Family History Father Acute myocardial infarction Cerebrovascular accident Heart disease Hypertension Diabetes mellitus Mother Ovarian cancer Heart disease Hypertension Sibling Hypertension Heart disease Social History Social History (Updated 12/03/21 @ 23:54 by Rossy Ding PA-C) Social History: Surrogate decision maker: Jomar Goins, spouse. Code status: Full code. Smoking status: Never smoker Alcohol intake: never Substance use: never Substance use type: does not use Living arrangements: with family Spiritual care concerns: No Exam Const: General: ill appearing Nutritional Appearance: obese Other: unresponsive Eyes: Other: bilateral pupils equal minimal responsive 3 mm Resp: Auscultation: crackles and diminished lung sounds Other: intubated Cardio: Rate: bradycardic Heart sounds: Murmur heart
[2021-12-03 17:42] LABS: Appearance Urine Clear (Clear); Bilirubin Urine Negative (Negative); Blood Urine 2+ (Negative); Color Urine Yellow (Yellow); Glucose Urine UA Negative (Negative); Ketones Urine Negative (Negative); Leukocyte Esterase Ur Negative LEU/UL (Negative); Nitrate Urine Negative (Negative); Protein Urine Negative (Negative); Urobilinogen Urine 0.2 mg/dL (<2.0)
[2021-12-03 17:44] LABS: INR 1.3
[2021-12-03 17:45] LABS: Partial Thromboplastin Time 32.9 SECONDS (22.3-36.8)
[2021-12-03 17:51] LABS: Add Urine Microscopic? YES; Amorphous Sediment Urine Few; Bacteria Urine Trace /hpf; Mucus Urine Rare /lpf; Squamous Epithelial Cell Urine Rare /hpf (Few)
[2021-12-03 17:54] LABS: NT Pro B Type Natriuretic Pept 14400 pg/mL (5-100); Troponin I < 0.012 ng/mL (0.000-0.034)
[2021-12-03] MEDS: SODIUM BICARBONATE 8.4% 50 MEQ/50 ML SYRINGE IV PUSH (17:54)
[2021-12-03] MEDS: CALCIUM GLUCONATE 1,000 MG/10 ML VIAL 1000 MG IV PUSH (18:00)
[2021-12-03] MEDS: LORazepam INJ (*CRX) 2 MG/ML VIAL IV PUSH (18:21)
[2021-12-03 20:17] LABS: Reflex Lactic Acid Yes or No Add Lactic
[2021-12-03 21:52] LABS: Lactic Acid 1.8 mmol/L (0.7-2.1)
--- NOTE | 2021-12-03 21:54 | PCDIET ---
This patient, Velma Goins, was admitted to ICU status, and placed in Intensive Care Unit-3. Patient/family oriented to hospital policies and general routines including ID bracelet, bed and alarms, visiting hours, pain management, procedures, bathroom and other care routines, personal items, smoking policy, room service/diet, and visiting hours. Valuables list has been completed. Information on how to activate the Rapid Response Team has been discussed. Patient/Family are encouraged to report perceived risks to care and to ask questions if they do not understand what they are told or what they should do.
--- NOTE | 2021-12-03 22:00 | PM.IMHP ---
H&P: HPI History of Present Illness Date/Time: 12/03/21 20:00 Chief Complaint: Cardiopulmonary arrest. Narrative: This is an 81-year-old female with hypertension, hyperlipidemia, diabetes, severe aortic stenosis, congestive heart failure, and chronic kidney disease who presented to the emergency department via EMS and cardiopulmonary arrest. The following is history is obtained via a review of her electronic medical records as well as discussions with family given her current clinical condition. She was recently started on amoxicillin for a dental abscess and most of the day today she was nauseated and had several episodes of emesis. She has also been feeling increasingly short of breath with worsening lower extremity edema. At some point in time, a neighbor was called to assist the patient to the restroom as she was having difficulties getting out of the wheelchair. Not long after the neighbor arrived, she complained of worsening chest pain and shortness of breath and she became unresponsive several minutes prior to EMS arrival. Initially she was in asystole, then PEA, and after 3 rounds of CPR and epinephrine, return of spontaneous circulation was achieved. On arrival to the ER her temperature was 97.2? with a blood pressure 94/65 and a pulse of 52. ABG showed a pH of 7.2 to 0 with a pCO2 of 35.1 and a bicarb of 14.0. Initial labs showed an increase in BUN from baseline, mild hyperkalemia, mild AST and ALT elevation, lactic acid of 8.8, troponin less than 0.012, and proBNP 53211. EKG was reviewed and shows a sinus rhythm with normal access and T-wave inversion in the lateral leads. Brain CT showed no acute findings. CT of the chest, abdomen, and pelvis showed bilateral pleural effusions with pulmonary edema and possible aspiration as well as multiple bilateral rib fractures consistent with resuscitation attempts. UA looked okay. She has since been admitted to the ICU and she is now demonstrating myoclonic jerking and seizure-like activity for which she has been started on Keppra. She has also been started on broad-spectrum antibiotics to cover for possible aspiration as well as her dental abscess. Review of Systems Review of Systems: ROS unobtainable: Yes unobtainable due to medical condition PMFSH Past Medical History Medical History (Updated 12/04/21 @ 00:01 by Rossy Ding PA-C) Anemia Arthritis Chronic anemia Chronic heart failure with preserved ejection fraction Chronic kidney disease Kidney biopsy in March 2021 showed acute tubular injury with arterionephrosclerosis. Glaucoma Grade II diastolic dysfunction Hyperlipidemia Hypertension Morbid obesity Severe pulmonary hypertension Type 2 diabetes mellitus Surgical History Surgical History (Updated 12/03/21 @ 23:54 by Rossy Ding PA-C) History of appendectomy History of bilateral cataract extraction History of hysterectomy Family History Family History Father Acute myocardial infarction Cerebrovascular accident Heart disease Hypertension Diabetes mellitus Mother Ovarian cancer Heart disease Hypertension Sibling Hypertension Heart disease Social History Social History (Updated 12/03/21 @ 23:54 by Rossy Ding PA-C) Social History: Surrogate decision maker: Jomar Goins, spouse. Code status: Full code. Smoking status: Never smoker Alcohol intake: never Substance use: never Substance use type: does not use Living arrangements: with family Spiritual care concerns: No Meds Home Medications and Allergies Home Medications Medication Instructions Recorded Confirmed Type ascorbic acid (vitamin C) 1,000 mg PO QPM 04/02/21 12/03/21 History aspirin 81 mg PO QPM 04/02/21 12/03/21 History atenolol 50 mg PO DAILY 04/02/21 12/03/21 History atorvastatin 40 mg PO QPM 04/02/21 12/03/21 History cholecalciferol (vitamin D3) 125 mcg PO DAILY 04/02/21 12/03/21 History [Vitam
[2021-12-03] MEDS: levETIRAcetam 500MG/NACL 100ML 500 MG/100 ML BAG 400 MG IVPB (22:39)
[2021-12-04] VITALS (18 sets, daily range): BP systolic 113–136; BP diastolic 50–80; PULSE 46–74; RESP 14–28; TEMP 35.4–36.8; O2SAT 92–100; BMI 45.5
--- NOTE | 2021-12-04 00:33 | ECHO_ITS ---
Patient Info Name: Velma Goins Age: 81 years : 1940 Gender: Female Ht: 63 in Wt: 256 lbs BSA: 2.34 m2 HR: 76 bpm BP: 125 / 54 mmHg Exam Date: 12/04/2021 8:48 AM Exam Location: [facility] Patient Status: Inpatient Admit Date: 12/03/2021 Staff Ordering Physician: Rossy Ding PA-C Gmat Instructor: Rodriguez Chavarria RDCS, RT Attending Provider: Adelaida Mullins MD Referring Physician: Timur MEJIA; Exam Type: CA echo doppler color flow Study Info Indications I35.0 - Nonrheumatic aortic (valve) stenosis I46.2 - Cardiac arrest due to underlying cardiac condition Complete two-dimensional, color flow and Doppler transthoracic echocardiogram is performed. Summary 1. Complete two-dimensional, color flow and Doppler transthoracic echocardiogram is performed. 2. Left ventricular systolic function is normal, estimated at 55-60%. 3. There is moderately increased left ventricular wall thickness. 4. The left ventricular diastolic function is grade II diastolic dysfunction. 5. Left atrial chamber dimension is mildly enlarged. 6. There is severe aortic valve stenosis with a peak velocity of 452 cm/s, mean gradient of 47 mmHg, and aortic valve area of 0.7 cm2. 7. There is mild aortic valve regurgitation. 8. There is severe aortic valve calcification. 9. There is mild mitral valve calcification. 10. There is moderate mitral valve regurgitation. 11. There is mild tricuspid valve regurgitation. 12. Moderate pulmonary hypertension, estimated pulmonary arterial systolic pressure is 46 mmHg. 13. pleural effusion. 14. There is trivial pericardial effusion. Left Ventricle Left ventricular chamber dimension is normal. Left ventricular systolic function is normal, estimated at 55-60%. There is moderately increased left ventricular wall thickness. Left ventricular septal wall motion is normal. The left ventricular diastolic function is grade II diastolic dysfunction. Right Ventricle Right ventricular chamber dimension is normal. Right ventricular systolic function is normal. Left Atria Left atrial chamber dimension is mildly enlarged. Right Atria Right atrial chamber dimension is normal. Atrial Septum Intact interatrial septum visualized by color flow imaging. Aortic Valve The aortic valve is probable trileaflet. There is severe aortic valve stenosis with a peak velocity of 452 cm/s, mean gradient of 47 mmHg, and aortic valve area of 0.7 cm2. There is mild aortic valve regurgitation. There is severe aortic valve calcification. Pulmonic Valve The pulmonic valve is normal. There is no pulmonic valve stenosis. There is no pulmonic regurgitation. Mitral Valve The mitral valve has normal leaflets. There is no mitral valve stenosis. There is moderate mitral valve regurgitation. There is mild mitral valve calcification. Tricuspid Valve The tricuspid valve leaflets are normal. There is no significant tricuspid valve stenosis. There is mild tricuspid valve regurgitation. Moderate pulmonary hypertension, estimated pulmonary arterial systolic pressure is 46 mmHg. Pericardium/Pleural There is trivial pericardial effusion. Inferior Vena Cava Normal inferior vena cava with >50% collapse upon inspiration consistent with Empty right atrial pressure, 15 mmHg. Aorta The aortic root size at the sinus of Valsalva is normal. The prox ascending aorta size is normal. Left Ventricular Outflow Tract
[2021-12-04 01:13] LABS: Anion Gap 11 mmol/L (8-16); Blood Urea Nitrogen 96 mg/dL (7-17); Calcium 8.5 mg/dL (8.4-10.2); Carbon Dioxide 27 mmol/L (22-30); Chloride 100 mmol/L (98-107); Estimated CRCL calculation 14 ml/min; Estimated Glomerular Filt Rate 12; Glucose 182 mg/dL (65-110); Potassium 4.1 mmol/L (3.4-5.0); Sodium 138 mmol/L (137-145)
[2021-12-04 01:16] LABS: Hemoglobin A1C 5.6 % (<5.7)
[2021-12-04 01:36] LABS: Troponin I 0.249 ng/mL (0.000-0.034)
[2021-12-04] MEDS: ENOXAPARIN 120 MG/0.8 ML SYRINGE 115 MG SUB-Q (02:11)
[2021-12-04] MEDS: PROPOFOL IV EMULSION 100 ML 3.49 MG IV CONT (02:27)
[2021-12-04 04:51] LABS: Lactic Acid Reflex 1.2 mmol/L (0.7-2.1)
[2021-12-04 04:56] LABS: Alveolar/Arterial O2 Gradient 407.1 mmHg; Base Excess ABG 1.4 mEq/l (+/-2.0); Carboxyhemoglobin 0.2 % THb (0-2.0); Fractional Inspired Oxygen 75 %; HCO3 ABG 27.3 mEq/l (22.0-26.0); Methemoglobin ABG 0.4 %THb (0-1.5); Oxygen Content ABG 11.5 %vol (16.0-22.0); Oxygen Saturation ABG 94.2 % (95.0-100.0); Oxyhemoglobin 92.9 % THb (90.0-100.0); PCO2 ABG 50.2 mmHg (35.0-45.0); PO2 ABG 74.3 mmHg (80.0-100.0); PO2 FiO2 Ratio Arterial Blood 0.99 %; Reduced Hemoglobin 6.5 %THb (0-5.0); Total Hemoglobin 8.7 g/dL (12.0-18.0); pH ABG 7.354 (7.350-7.450)
[2021-12-04 04:57] LABS: Device VENTILATOR; Modified Allen's Test Unable to perform; Site Drawn RIGHT RADIAL
[2021-12-04 04:58] LABS: Arterial Blood Gas PEEP 5 cmH2O; Arterial Blood Gas Tidal Volume 350 ml; Arterial Blood Gas Vent Mode CMV; Arterial Blood Gas Ventilator rate 18 /MIN
[2021-12-04 05:04] LABS: Hematocrit 25.3 % (37.0-47.0); Mean Corpuscular HGB Conc 31.6 g/dl (32-36); Mean Corpuscular Hemoglobin 31.1 pg (26-34); Mean Corpuscular Volume 98.4 fl (80-100); Mean Platelet Volume 9.5 fl (7.4-10.4); Platelet Count Result 258 k/mm3 (150-375); Red Blood Count 2.57 M/mm3 (4.2-5.4); Red Cell Distribution Width 12.4 % (11.5-14.5); White Blood Count 9.6 K/mm3 (4.5-10.0)
[2021-12-04 06:40] LABS: Glucose Point of Care 153 mg/dl (65-105)
[2021-12-04 07:04] LABS: Alanine Aminotransferase 61 U/L (4-35); Albumin Level 3.4 g/dL (3.5-5.1); Alkaline Phosphatase 60 U/L (38-126); Anion Gap 8 mmol/L (8-16); Aspartate Amino Transferase 87 U/L (14-36); Bilirubin,Total 0.9 mg/dL (0.2-1.3); Blood Urea Nitrogen 100 mg/dL (7-17); Calcium 8.2 mg/dL (8.4-10.2); Carbon Dioxide 28 mmol/L (22-30); Chloride 101 mmol/L (98-107); Estimated CRCL calculation 14 ml/min; Estimated Glomerular Filt Rate 13; Glucose 151 mg/dL (65-110); Magnesium 2.2 mg/dL (1.6-2.3); Potassium 4.4 mmol/L (3.4-5.0); Sodium 137 mmol/L (137-145)
[2021-12-04] MEDS: METOPROLOL TARTRATE 6.25 MG TABLET FEED TUBE (08:46)
[2021-12-04] MEDS: ASPIRIN 325 MG TABLET FEED TUBE (08:46)
[2021-12-04] MEDS: polyethylene glycoL 3350 17 GM POWD.PACK PO (08:46)
[2021-12-04] MEDS: FAMOTIDINE 20 MG/2 ML VIAL IV PUSH (08:47)
[2021-12-04] MEDS: TIMOLOL MALEATE 0.5% OP SOLN 5 ML BOTTLE 1 DROP EACH EYE (08:47)
[2021-12-04] MEDS: ENOXAPARIN 30 MG/0.3 ML SYRINGE SUB-Q (08:47)
[2021-12-04 08:55] LABS: Glucose Point of Care 112 mg/dl (65-105)
[2021-12-04 08:57] LABS: Troponin I 0.484 ng/mL (0.000-0.034)
[2021-12-04] MEDS: levETIRAcetam 500MG/NACL 100ML 500 MG/100 ML BAG 400 MG IVPB (08:59)
[2021-12-04] MEDS: MINERAL OIL/WHITE PETROLATUM OINTMENT 1 APPLIC EACH EYE (08:59)
--- NOTE | 2021-12-04 09:39 | WPDCNINT ---
Assessment and Plan Assessment and plan (1) Cardiopulmonary arrest with successful resuscitation: Code(s): I46.9 - Cardiac arrest, cause unspecified Status: Acute Assessment and Plan: Unclear single etiology but patient has multiple comorbidities. She does have severe aortic stenosis, congestive heart failure with anasarca, she was also having nausea vomiting prior to this episode, arrhythmia is another possible, she also may have coronary artery disease as she has risk factors Hemodynamically she has been stable since arrival and intubation and has not required any vasopressor Aspirin was started but held due to GI bleed Beta-mary was started held due to sinus bradycardia Not on anticoagulation due to GI bleed EKG reviewed and no ST elevation Troponins are mildly elevated patient also has renal failure and had cardiac arrest and received CPR Cardiology evaluated the patient Echo has been done and report is pending (2) Severe aortic stenosis: Code(s): I35.0 - Nonrheumatic aortic (valve) stenosis Status: Acute Assessment and Plan: Patient has severe Phan stenosis with area 0.7 on last echo Repeat echo has been ordered Patient was evaluated for TAVR but due to her renal failure she was deemed not a candidate at that time Discussed with Cardiology. At this point is no plan for cardiac catheterization of further workup until patient's neurological status improved (3) Congestive heart failure: Code(s): I50.9 - Heart failure, unspecified Status: Acute Assessment and Plan: Patient has congestive heart failure as evidenced by pulmonary edema pleural effusion and anasarca She is also has kidney failure Echo has been ordered and report pending (4) Acute respiratory failure: Code(s): J96.00 - Acute respiratory failure, unspecified whether with hypoxia or hypercapnia Status: Acute Assessment and Plan: Acute Respiratory failure secondary to pulmonary edema, cardiac arrest, possible aspiration pneumonia Continue full mechanical ventilation support to prevent hypoxemia/hypercarbia and end organ damage. ABG and PCXR reviewed and will repeat in am. Low tidal volume ventilation strategy to prevent volutrauma Increase PEEP to 8 Wean FiO2 if possible Blood and sputum cultures Empiric Zosyn (5) Aspiration pneumonia: Code(s): J69.0 - Pneumonitis due to inhalation of food and vomit Status: Acute Assessment and Plan: See above (6) Anoxic brain injury: Code(s): G93.1 - Anoxic brain damage, not elsewhere classified Status: Acute Assessment and Plan: Patient appears to have sustained anoxic brain injury. Her head CT was negative but she is unresponsive to pain and is showing myoclonic jerking She is on low-dose propofol Keppra has been started EEG is ordered She is on moderate TTM protocol as she had non-shockable rhythm cardiac arrest (7) Chronic kidney disease: Code(s): N18.9 - Chronic kidney disease, unspecified Status: Acute Assessment and Plan: Patient has chronic kidney disease with baseline creatinine in mid 3s Creatinine appears to be close to baseline but BUN is elevated This could be exacerbated by GI bleed IV fluids were not given due to pulmonary edema Hold diuretics at this time (8) GI bleeding: Code(s): K92.2 - Gastrointestinal hemorrhage, unspecified Status: Acute Assessment and Plan: Patient initially had brownish stuff in her OG tube and I thought it could have been secondary to traumatic intubation. Later case of fresh bright blood in her OG. I had started patient on aspirin was on DVT prophylaxis anticoagulation and I will hold both of them Serial hemoglobin checks IV PPI q.12 hours (9) Type 2 diabetes mellitus: Code(s): E11.9 - Type 2 diabetes mellitus without complications Status: Acute Assessment and Plan: Sliding scale insulin Additional Plan DVT proph
[2021-12-04] MEDS: PANTOPRAZOLE SODIUM IV 40 MG VIAL IV PUSH (10:09)
[2021-12-04 10:18] LABS: Glucose Point of Care 124 mg/dl (65-105)
--- NOTE | 2021-12-04 10:28 | PM.CNCAR ---
Assessment and Plan Assessment and plan (1) Severe aortic stenosis: Code(s): I35.0 - Nonrheumatic aortic (valve) stenosis Status: Acute Assessment and Plan: She has severe aortic stenosis. Follows with Dr. uQiroz and there was plans for TAVR workup after renal function stabilized. (2) Hypertension: Code(s): I10 - Essential (primary) hypertension Status: Acute Assessment and Plan: Now hypotensive. Hold atenolol, nifedipine. (3) Anoxic brain injury: Code(s): G93.1 - Anoxic brain damage, not elsewhere classified Status: Acute Assessment and Plan: Depending on neurological recovery, will need to proceed with TAVR workup including angiogram. In the meantime, continue supportive care (4) GI bleeding: Code(s): K92.2 - Gastrointestinal hemorrhage, unspecified Status: Acute Assessment and Plan: Appears to have coffee-ground aspirate from NG tube. IV Protonix 40 mg q.12 hours (5) Cardiopulmonary arrest with successful resuscitation: Code(s): I46.9 - Cardiac arrest, cause unspecified Status: Acute Assessment and Plan: Possibly related to volume depletion from vomiting and diarrhea in the setting of severe aortic stenosis. Hold furosemide. (6) Chronic heart failure with preserved ejection fraction: Code(s): I50.32 - Chronic diastolic (congestive) heart failure Status: Acute Assessment and Plan: Holding beta-mary and diuretics for now. History of Present Illness History of Present Illness Consult date/time: 12/04/21 10:28 Requesting physician: Adelaida Mullins MD Consult reason: Other (Cardiac arrest) Reason For Visit: Status post cardiac arrest Narrative: Date of service 12/04/2021 Reason consultation: Cardiac arrest Requesting provider: Dr. Mullins History:This is an 81-year-old female with hypertension, hyperlipidemia, diabetes, severe aortic stenosis, congestive heart failure, and chronic kidney disease who presented to the emergency department via EMS and cardiopulmonary arrest. History is obtained by evaluating electronic health record. She reported was having copious amounts of emesis as well as diarrhea recently. She had been started on amoxicillin because of a dental abscess. Reportedly was having worsening shortness of breath and lower extremity edema. Also developed chest pain yesterday. Due to the worsening pain, shortness of breath and unresponsiveness, a neighbor had already been to the house to help assist her with going to the restroom. Neighbor reportedly called 911 and EMS arrived the patient was in asystole, PE a. Patient did have ROSC after CPR and epinephrine. Patient does have a known history be of severe aortic stenosis, diastolic dysfunction. She has a mean gradient 55 and severe pulmonary hypertension RVSP of 69. She was last seen in the office by Dr Quiroz in TAVR workup was on hold due to significant chronic kidney disease. Plan was that once kidney function stabilize that CTA of the chest and catheterization to be performed prior to potential TAVR. Review of Systems Review of Systems: All systems reviewed & are unremarkable except as noted in HPI and below Constitutional: Constitutional: Reports weakness Eyes: Eyes: Denies blurry vision ENT: Reports Normal hearing present Cardiovascular: Cardiovascular: Reports chest pain Respiratory: Respiratory: Reports dyspnea Gastrointestinal: Gastrointestinal: Denies abdominal pain, Reports diarrhea and Reports vomiting Genitourinary: Genitourinary: Denies flank pain Musculoskeletal: Musculoskeletal: Denies neck pain Integumentary/Breasts: Skin/Breast: Denies dry skin Neurologic: Denies headache(s) Psychiatric: Psychiatric: Denies anxiety Endocrine: Endocrine: Denies excessive sweating Hematologic/Lymphatic: Hematologic/Lymphatic: Denies easy bleeding Allergic/Immunologic: Allergic/Immunologic: Denies GI upset with cert
--- NOTE | 2021-12-04 11:15 | P.PNCROSS_ITS ---
Event Note Event Note Event Note: Family Meeting I met with patient's and daughter in presence of family day care provider Saundra to discuss medical decisions and level of care regarding patient's current condition. Patient's daughter was well aware of patient's current medical problems including severe aortic stenosis, heart failure, kidney disease, and volume overload. I updated them with events since presentation to hospital. I also updated them with patient's current condition including and volume overload, pulmonary edema, acute respiratory failure, anoxic brain injury, severe aortic stenosis, congestive heart failure, acute on chronic renal failure. I also explained them current treatment plan and overall poor prognosis. She patient's daughter told me that she has had discussion with other family members overnight and with her dad and she does not feel the patient would want to continue aggressive medical therapy at this point considering her age, current medical problems and poor prognosis. She wants her mother to be kept comfortable and pain-free. They have decided, in accordance with pt's wishes, to discontinue all medical therapy and institute comfort measures only. She wants her sister and patient's sister to come visit her proceeding with comfort care. Until then patient will be made DNR with no further escalation in care. I will discontinue hypothermia at this time. Current supportive care we continued until family is ready and once everyone has visited her and they already, patient will be palliatively extubated. I explained them that I willl use opioids, anxiolytics and other agents on as needed basis to promote comfort and discontinue all medical therapy, lab testing and invasive monitoring. Total time spent 35 minutes
[2021-12-04] MEDS: MORPHINE SULFATE INJ (*CRX) 10 MG/ML AMP 5 MG IV PUSH (15:50)
[2021-12-04] MEDS: LORazepam INJ (*CRX) 2 MG/ML VIAL IV PUSH (15:51)
[2021-12-04] MEDS: MORPHINE SULFATE (*CRX) 4 MG/ML INJ IV PUSH ×2 (16:25→16:56)
--- NOTE | 2021-12-24 13:55 | PM.DDS ---
Discharge Summary Date and Time Date of : 12/04/21 Time of : 17:17 Provider Pronounced By: Estrella Diehl RN and Estrella Pérez RN Probable Cause of Probable Cause of : Anoxic brain injury, cardiac arrest, acute respiratory failure, severe stenosis, congestive heart failure, aspiration pneumonia, GI bleeding Summary Hospital Course: 81 year old female with past medical history of hypertension, hyperlipidemia, diabetes, severe aortic stenosis, congestive heart failure, and chronic kidney disease who was brought to emergency department via EMS after sustaining a cardiopulmonary arrest. As per record patient was recently started on amoxicillin for a dental infection and post that she was nauseous and had several episodes of vomiting. Also short of breath and had increasing lower extremity edema for many days. She was having difficulty getting out of wheelchair. When her neighbor arrived to help her she complained of chest pain and shortness of breath and became unresponsive. EMS was called. Bystander CPR was administered. EMS arrived patient was in asystole. EMS found it difficult to work on her due to no space around where she was in the hallway with surrounding clutter. CPR was initiated and she was given epinephrine. She became PEA and eventually ROSC after 3 rounds of epinephrine and CPR. She was intubated in the field. ABG showed a pH of 7.2 to 0 with a pCO2 of 35.1 and a bicarb of 14.0. Initial labs showed an increase in BUN from baseline, mild hyperkalemia, mild AST and ALT elevation, lactic acid of 8.8, troponin less than 0.012, and proBNP 57584. EKG was reviewed and shows a sinus rhythm with normal access and T-wave inversion in the lateral leads. Brain CT showed no acute findings. CT of the chest, abdomen, and pelvis showed bilateral pleural effusions with pulmonary edema and possible aspiration as well as multiple bilateral rib fractures consistent with resuscitation attempts. UA did not suggest UTI. She was demonstrating myoclonic jerking and seizure-like activity. She was admitted to ICU and was started on Keppra. She was also started on broad-spectrum antibiotics to cover for possible aspiration as well as her dental abscess. She was placed on moderate TTM protocol. She was started on propofol for her myoclonic jerking. patient was also evaluated by Cardiology. After initial review and exam of patient, I met with patient's and daughter in presence of farm or ranch animal caretaker Saundra to discuss medical decisions and level of care regarding patient's current condition. Patient's daughter was well aware of patient's current medical problems including severe aortic stenosis, heart failure, kidney disease, and volume overload. I updated them with events since presentation to hospital. I also updated them with patient's current condition including and volume overload, pulmonary edema, acute respiratory failure, anoxic brain injury, severe aortic stenosis, congestive heart failure, acute on chronic renal failure. I also explained them current treatment plan at that time and overall poor prognosis. Patient's daughter told me that she has had discussion with other family members overnight and with her dad and she does not feel the patient would want to continue aggressive medical therapy at this point considering her age, current medical problems and poor prognosis. She wants her mother to be kept comfortable and pain-free. They had decided, in accordance with pt's wishes, to discontinue all medical therapy and institute comfort measures only. She wants her sister and patient's sister to come visit her before proceeding with comfort care. Until then patient was made DNR with no further escalation in care. Current supportive care were continued until family was ready Once everyone had visited her and family was ready, patient was palliatively extubated. patient was treated with opioids, anxiolytics and other agent
== END 2021-12-04 17:17 | disposition expired | DRG 296 ==
LOC: ANHED 19:31 → ANHICU 20:38
PROVIDERS: Internal Medicine; Physician Assistant; Admitting Provider Internal Medicine; Emergency Provider General Practice; PCP Family Medicine Adolescent Medicine; Visit Provider Internal Medicine
DX: I46.9 Cardiac arrest, cause unspecified (principal); J69.0 Pneumonitis due to inhalation of food and vomit; J96.00 Acute respiratory failure, unspecified whether with hypoxia or hypercapnia; I13.0 Hypertensive heart and chronic kidney disease with heart failure and stage 1 through stage 4 chronic kidney disease, or unspecified chronic kidney disease; I50.32 Chronic diastolic (congestive) heart failure; M96.89 Other intraoperative and postprocedural complications and disorders of the musculoskeletal system; Z68.42 Body mass index [BMI] 45.0-49.9, adult; E87.2 Acidosis; G93.1 Anoxic brain damage, not elsewhere classified; K92.2 Gastrointestinal hemorrhage, unspecified; N17.9 Acute kidney failure, unspecified; Z66 Do not resuscitate; Z51.5 Encounter for palliative care; E78.5 Hyperlipidemia, unspecified; N18.9 Chronic kidney disease, unspecified; D63.1 Anemia in chronic kidney disease; E11.22 Type 2 diabetes mellitus with diabetic chronic kidney disease; E87.5 Hyperkalemia; K04.7 Periapical abscess without sinus; H40.9 Unspecified glaucoma; I27.20 Pulmonary hypertension, unspecified; I35.0 Nonrheumatic aortic (valve) stenosis; R11.2 Nausea with vomiting, unspecified; Y84.8 Other medical procedures as the cause of abnormal reaction of the patient, or of later complication, without mention of misadventure at the time of the procedure; R60.1 Generalized edema; R60.0 Localized edema; R56.9 Unspecified convulsions; R77.8 Other specified abnormalities of plasma proteins; E66.01 Morbid (severe) obesity due to excess calories; Z90.49 Acquired absence of other specified parts of digestive tract; Z90.710 Acquired absence of both cervix and uterus; Z98.41 Cataract extraction status, right eye; Z98.42 Cataract extraction status, left eye; Z79.82 Long term (current) use of aspirin
CPT/HCPCS: 36415; 36600; 70450; 71250; 74176; 80048; 80053; 81001; 82375; 82805; 82948; 83036; 83050; 83605; 83690; 83735; 83880; 84443; 84484; 85025; 85027; 85610; 85730; 92950; 93005; 93306; 94002; 94003; 96361; 96374; 96375; 99291; A9270; C9113; J0610; J1650; J1953; J2060; J2270; J2543; J2704; J7030